=== PATIENT | female | born 1940 | race Caucasian/White ===

== ENCOUNTER → 2016-08-31 | Outpatient (CLI) | payer OTHER, BC ==
[~2016-08-31] MED LIST: ALBU1AER9 INH; ARFO15NE IN; ATV5 PO; CHOL100010 PO; CODCAP PO; CYAN500T PO; IPRASOL4 INH; LCTX PO; LORA-741 PO; LVQ500 PO; MULT-506 PO; NYSS/ PO; OXGN; PLMINSR5 INH; SPRIN/30 INH
[2016-08-31 17:06] LABS: BASO % 0.5 %; BASO ABS # 0.06 K/uL (0-0.2); COMPLETE YES; EOS % 1.3 %; IG% 0.3 %; LYMPH % 10.7 %; LYMPH ABS # 1.23 K/uL (1.2-3.4); MEAN CELL VOLUME 84.6 fL (80-100); MEAN CORPUSCULAR HEMOGLOBIN 27.9 pg (25-34); MEAN PLATELET VOLUME 9.8 fL (7.4-10.4); MONO % 11.2 %; PLATELET COUNT 514 K/uL (130-400); RED BLOOD COUNT 4.73 M/uL (4.2-5.4); WHITE BLOOD COUNT 11.52 K/uL (4.8-10.8)
[2016-08-31 17:18] LABS: ALKALINE PHOSPHATASE 97 U/L (45-117); ALT/SGPT 15 U/L (12-78); BLOOD UREA NITROGEN 10 mg/dl (7-18); BUN/CREATININE RATIO 15.2 (10-20); CARBON DIOXIDE 29 mmol/L (21-32); CHLORIDE 100 mmol/L (98-107); CREATININE 0.63 mg/dl (0.60-1.20); GLUCOSE 94 mg/dl (70-99); POTASSIUM 3.9 mmol/L (3.5-5.1); SODIUM 137 mmol/L (136-145)
[2016-08-31 17:28] LABS: ALB/GLOB RATIO 0.7 (0.9-2); AST/SGOT 14 U/L (15-37)
== END | disposition home or self-care (01) ==
LOC: C.LABBC 14:14
PROVIDERS: ATTEND Internal Medicine
DX: E53.8 Deficiency of other specified B group vitamins (principal); R04.2 Hemoptysis

== ENCOUNTER → 2016-08-31 | Outpatient (CLI) | payer OTHER, BC ==
--- NOTE | 2016-08-31 14:25 | DIAGNOSTIC IMAGING REPORT ---
CHEST 2 VIEWS ROUTINE CLINICAL HISTORY: hemoptysis dyspnea COMPARISON STUDY: 05/05/2016 FINDINGS: Unchanging fibrotic and cystic changes right pulmonary apex. Diffuse parenchymal fibrotic change slightly improved from the prior study read No evidence for new interval or progressive process. IMPRESSION: Unchanging fibrous and cystic changes right apex. Chronic parenchymal fibrotic change somewhat improved from the prior exam. Electronically signed by: Chencho Burt M.D. 08/31/2016 2:24 PM Dictated Date/Time: 08/31/2016 2:23 PM
== END | disposition home or self-care (01) ==
LOC: C.RADBC 13:18
PROVIDERS: ATTEND Nurse Practitioner Family
DX: R04.2 Hemoptysis (principal)

== ENCOUNTER 2017-05-14 09:29 | Inpatient (IN) | payer OTHER, BC ==
[2017-05-14] VITALS (7 sets, daily range): BP systolic 95–107; BP diastolic 61–68; PULSE 62–115; TEMP 36.5–37; O2SAT 92–98; Ht 160 cm; Wt 49.2 kg
[~2017-05-14] VITALS: Ht 160 cm; Wt 49.2 kg
[~2017-05-14 09:29] MED LIST changes: -CODCAP PO; +CODCAP4 PO
[2017-05-14] MEDS ORDERED: SODIUM CHLORIDE 0.9% 1000ML 1,000 ML IV STA (10:11)
[2017-05-14] MEDS ORDERED: METHYLPREDNISOLONE 125 MG VIAL IV STA (10:11)
[2017-05-14] MEDS ORDERED: ALBUT/IPRATROP 3MG/0.5MG NEB 3 ML VIAL INH ONE (10:15)
--- NOTE | 2017-05-14 10:27 | EMERGENCY ROOM VISIT NOTE ---
History Report prepared by Carmen: Randy Larson Under the Supervision of: Dr. Graham Lowe M.D. First contact with patient: 10:08 Chief Complaint: WEAKNESS Stated Complaint: GENERALIZED WEAKNESS Nursing Triage Summary: Patient arrived via EMS from home. Patient reports feeling weak and having generalized pain x 1 week. Pt denies cough, states "I dont' have a cough, I can't bring anything up". Pt coughing occasionally in room, non productive, dry. Pt denies urinary symptoms. Pt states patient is not eating well, hasn' t been eating or drinking well for months. Pt admits to nausea. Pt son states pt had temp of 100 2 days ago and 99.1 this am. No tylenol/advil given today. Pt son states patient wears oxygen 2 L NC at home at all times. After ambulation her pulse ox has been dropping to 83% while wearing 2 L NC. Lungs clear. Speech slow. No edema in lower extremities. Hx COPD, Emphysema per patient. 2 Aneurysms in brain, denies recent headaches. Pt son states no change in aneuryms at last check. History of Present Illness The patient is a 77 year old female who presents to the Emergency Room with complaints of generalized weakness that began 1 week ago. She notes that this has happened once before in the past. She has a past medical history of COPD and emphysema, for which she is chronically on 2L of oxygen. About a week ago, the patient began to notice that she felt extremely weak. She has not been eating substantial solid foods and has not been keeping up with her fluids. The patient's son has been monitoring her at her home over this time. He noticed that she become hypoxic when she is up walking around. He also noticed that her heart rate has been tachycardic as well. She denies any fevers over 100.4 F, chills, chest pain, vomiting, diarrhea, or abnormal urinary symptoms. She has felt mildly nauseated over this time. They called the patient's PCP and was referred to the ER. She took her normal medications this morning, but did not receive a nebulizer treatment like usual. Source of History: patient, family Onset: 1 week ago Position: other (Global) Symptom Intensity: moderate Quality: other (Weakness) Timing: constant Associated Symptoms: + nausea, No fevers, No chills, No chest pain, No diarrhea, No urinary symptoms Note: She becomes mildly hypoxic with exertion. She is also tachycardic. Review of Systems See HPI for pertinent positives and negatives. A total of ten systems were reviewed and were otherwise negative. Past Medical & Surgical Medical Problems: (1) Asthma (2) Collapse of left lung (3) Pneumonia (4) Sepsis Family History Cancer Diabetes mellitus Heart disease Lung disease Social History Smoking Status: Former Smoker Alcohol Use: none Drug Use: none Marital Status: Housing Status: lives with family Occupation Status: retired Current/Historical Medications Scheduled Arformoterol Tartrate (Brovana), 15 MCG IN Q12 Azithromycin (Zithromax), 250 MG PO MWF Budesonide (Pulmicort Respules 0.5MG/2ML), 2 ML INH Q12 Home O2 Therapy (Oxygen), 2 LITERS NA CONTINOUS Ipratropium-Albuterol (Duoneb), 3 ML INH DAILY Lorazepam (Ativan), 0.25-0.5 MG PO BID Tiotropium [place] (Spiriva Handihaler), 1 PUFF INH DAILY Scheduled PRN Albuterol Sulfate (Proair Respiclick), 2 PUFFS INH Q4H PRN for Shortness of Breath Nystatin (Nystatin Suspension), 5 ML PO QID PRN for THRUSH Allergies Coded Allergies: Nitroglycerin (Unverified Allergy, Severe, SLOW HEART RATE, 05/14/17) Penicillins (Verified Allergy, Unknown, HIVES, 05/14/17) Physical Exam Vital Signs Date Time Temp Pulse Resp B/P (MAP) Pulse Ox O2 Delivery O2 Flow Rate FiO2 05/14/17 12:37 102 19 128/74 96 Nasal Cannula 2.0 05/14/17 11:32 93 16 97 Nasal Cannula 2.0 05/14/17 11:01 97 28 100/62 98 Nasal Cannula 2.0 05/14/17 09:37 107 05/14/17 09:30 36.9 108 21 126/73 97 Nasal Cannula 2.0 05/14/17 09:30 97 Nasal Cannula 2.0 Physical Exam GENERAL: Awake, alert, fatigued-appearing, in no distress HENT: Normocephalic, atraumatic. Oropharynx reveals dry, cracked mucous membranes. EYES: Normal conjunctiva. Sclera non-icteric. NECK: Supple. No nuchal rigidity. FROM. No JVD. RESPIRATORY: Diminished bibasilar breath sounds with scant scattered wheezes. CARDIAC: Sinus tachycardic rate, normal rhythm. Extremities warm and well perfused. Pulses equal. ABDOMEN: Soft, non-distended. No tenderness to palpation. No rebound or guarding. No masses. RECTAL: Deferred. MUSCULOSKELETAL: Chest examination reveals no tenderness. The back is symmetrical on inspection without obvious abnormality. There is no CVA tenderness to palpation. No joint edema. LOWER EXTREMITIES: Calves are equal size bilaterally and non-tender. No edema. No discoloration. NEURO: Normal sensorium. No sensory or motor deficits noted. SKIN: No rash or jaundice noted. Medical Decision & Procedures ER Provider Diagnostic Interpretation: Radiology results as stated below per my review and radiologist interpretation: CHEST ONE VIEW PORTABLE CLINICAL HISTORY: Atypical chest pain COMPARISON STUDY: 08/31/2016 FINDINGS: There is persistent pulmonary emphysema. There is a thick-walled right apical bulla/cavity similar to the prior study. Since the prior study the patient has developed a right perihilar airspace opacities, possibly representing a pneumonia. There is a 14 mm left basilar nodule versus summation. There are small bilateral pleural effusions.[ IMPRESSION: 1. Emphysema. Persistent thick walled right apical cavity/bulla containing trace fluid. 2. New right perihilar airspace opacities, likely representing a pneumonia. Clinical and radiographic follow-up is recommended 3. Small pleural effusions 4. 14 mm left basilar nodule versus summation Electronically signed by: Kem Hendrickson M.D. 05/14/2017 10:38 AM Dictated Date/Time: 05/14/2017 10:35 AM Laboratory Results 05/14/17 09:55 Red Blood Count 4.32, Mean Corpuscular Volume 81.3, Mean Corpuscular Hemoglobin 27.3, Mean Corpuscular Hemoglobin Concent 33.6, Mean Platelet Volume 9.3, Neutrophils (%) (Auto) 83.2, Lymphocytes (%) (Auto) 2.3, Monocytes (%) (Auto) 14.1, Eosinophils (%) (Auto) 0.0, Basophils (%) (Auto) 0.2, Neutrophils # (Auto ) 13.76, Lymphocytes # (Auto) 0.38, Monocytes # (Auto) 2.34, Eosinophils # (Auto ) 0.00, Basophils # (Auto) 0.03 Test 05/14/17 09:55 05/14/17 10:36 White Blood Count 16.55 K/uL (4.8-10.8) Red Blood Count 4.32 M/uL (4.2-5.4) Hemoglobin 11.8 g/dL (12.0-16.0) Hematocrit 35.1 % (37-47) Mean Corpuscular Volume 81.3 fL (80-100) Mean Corpuscular Hemoglobin 27.3 pg (25-34) Mean Corpuscular Hemoglobin Concent 33.6 g/dl (32-36) Platelet Count 540 K/uL (130-400) Mean Platelet Volume 9.3 fL (7.4-10.4) Neutrophils (%) (Auto) 83.2 % Lymphocytes (%) (Auto) 2.3 % Monocytes (%) (Auto) 14.1 % Eosinophils (%) (Auto) 0.0 % Basophils (%) (Auto) 0.2 % Neutrophils # (Auto) 13.76 K/uL (1.4-6.5) Lymphocytes # (Auto) 0.38 K/uL (1.2-3.4) Monocytes # (Auto) 2.34 K/uL (0.11-0.59) Eosinophils # (Auto) 0.00 K/uL (0-0.5) Basophils # (Auto) 0.03 K/uL (0-0.2) RDW Standard Deviation 44.7 fL (36.4-46.3) RDW Coefficient of Variation 15.0 % (11.5-14.5) Immature Granulocyte % (Auto) 0.2 % Immature Granulocyte # (Auto) 0.04 K/uL (0.00-0.02) Total Bilirubin 0.4 mg/dl (0.2-1) Direct Bilirubin 0.1 mg/dl (0-0.2) Aspartate Amino Transf (AST/SGOT) 17 U/L (15-37) Alanine Aminotransferase (ALT/SGPT) 13 U/L (12-78) Alkaline Phosphatase 88 U/L (45-117) Pro-B-Type Natriuretic Peptide 1257 pg/ml (0-1800) Total Protein 7.1 gm/dl (6.4-8.2) Albumin 2.5 gm/dl (3.4-5.0) Lipase 85 U/L (73-393) Venous Blood pH 7.44 (7.36-7.41) Venous Blood Partial Pressure CO2 43 mmHg (38.0-50.0) Venous Blood Partial Pressure O2 38 mmHg Venous Blood HCO3 28 mmol/L Venous Blood Oxygen Saturation 74.6 % Venous Blood Base Excess 3.5 mEq/L Laboratory results reviewed by me Medications Administered Medications (Trade) Dose Ordered Sig/Giovanni Route Start Time Stop Time Status Last Admin Dose Admin Albuterol/ Ipratropium (Duoneb) 12 ml ONE ONCE INH 05/14/17 10:15 05/14/17 10:17 DC 05/14/17 11:31 12 ML Sodium Chloride 1,000 ml @ 999 mls/hr Q1H1M STAT IV 05/14/17 10:11 05/14/17 11:11 DC 05/14/17 10:59 999 MLS/HR Methylprednisolone Sodium Succinate (Solu-Medrol IV) 125 mg NOW STAT IV 05/14/17 10:11 05/14/17 10:17 DC 05/14/17 10:58 125 MG Levofloxacin (Levaquin / D5W) 500 mg NOW ONCE IV 05/14/17 12:00 05/14/17 12:01 DC 05/14/17 13:02 500 MG Sodium Chloride 1,000 ml @ 100 mls/hr Q10H IV 05/14/17 12:35 06/13/17 12:34 05/14/17 14:01 100 MLS/HR ECG Indication: weakness Rhythm: sinus rhythm Findings: no acute ischemic change, other (premature supraventricular complexes , normal axis) ED Course 1008: The patient was evaluated in room B11. A complete history and physical exam was performed. 1011: Ordered Solu-Medrol IV 125 mg IV, Sodium Chloride 1000 ml @ 999 mls/hr IV 1015: Ordered DuoNeb 12 ml INH 1200: Ordered Levofloxacin 500 mg IV 1207: Upon reexamination, the patient was resting. I discussed the test results and treatment plan with her. I discussed the case with Dr. Dempsey of [facility]. The patient will be evaluated for further management. Medical Decision I reviewed the patient's past medical history, medications, and the nursing notes as described above. Differential diagnosis includes but is not limited to: pneumonia, bronchitis, UTI, dehydration, electrolyte abnormalities, congestive heart failure, and COPD exacerbation. The patient is a 77-year-old woman who presents emergency department with generalized fatigue, cough and congestion for the past week per history of present illness. On arrival the patient is uncomfortable appearing but in no acute distress, AFVSS. Abdomen notable for hyponatremia to 128 as well as chest x-ray with right perihilar airspace opacities c/w pna. WBC 16 consistent with infection. Patient was given Levaquin for CAP with atypical coverage. Case was d/w BERNICE Dempsey hospitalist, who will admit the patient for further management. Medication Reconcilliation Current Medication List: was personally reviewed by me Blood Pressure Screening Patient's blood pressure: Normal blood pressure Blood pressure disposition: Did not require urgent referral Consults Time Called: 1200 Consulting Physician: Dr. Ke QUEEN Returned Call: 1207 I discussed the patient with them - they will evaluate the patient for further treatment. Impression Primary Impression: Pneumonia Additional Impressions: Hyponatremia Weakness Dehydration Scribe Attestation The scribe's documentation has been prepared under my direction and personally reviewed by me in its entirety. I confirm that the note above accurately reflects all work, treatment, procedures, and medical decision making performed by me. Departure Information Dispostion Being Evaluated By Hospitalist Referrals Oscar Lanza M.D. (PCP) Patient Instructions My [facility] Problem Qualifiers
[2017-05-14] MEDS ORDERED: AZIT250T PO (10:33)
[2017-05-14] MEDS ORDERED: ALBU18002 INH (10:33)
--- NOTE | 2017-05-14 10:39 | DIAGNOSTIC IMAGING REPORT ---
CHEST ONE VIEW PORTABLE CLINICAL HISTORY: Atypical chest pain COMPARISON STUDY: 08/31/2016 FINDINGS: There is persistent pulmonary emphysema. There is a thick-walled right apical bulla/cavity similar to the prior study. Since the prior study the patient has developed a right perihilar airspace opacities, possibly representing a pneumonia. There is a 14 mm left basilar nodule versus summation. There are small bilateral pleural effusions.[ IMPRESSION: 1. Emphysema. Persistent thick walled right apical cavity/bulla containing trace fluid. 2. New right perihilar airspace opacities, likely representing a pneumonia. Clinical and radiographic follow-up is recommended 3. Small pleural effusions 4. 14 mm left basilar nodule versus summation Electronically signed by: Kem Hendrickson M.D. 05/14/2017 10:38 AM Dictated Date/Time: 05/14/2017 10:35 AM
[2017-05-14 10:46] LABS: BASO % 0.2 %; BASO ABS # 0.03 K/uL (0-0.2); COMPLETE YES; HEMATOCRIT 35.1 % (37-47); IG% 0.2 %; LYMPH % 2.3 %; LYMPH ABS # 0.38 K/uL (1.2-3.4); MEAN CELL VOLUME 81.3 fL (80-100); MEAN CORPUSCULAR HEMOGLOBIN 27.3 pg (25-34); MEAN CORPUSCULAR HGB CONC 33.6 g/dl (32-36); MEAN PLATELET VOLUME 9.3 fL (7.4-10.4); MONO % 14.1 %; NEUT % 83.2 %; PLATELET COUNT 540 K/uL (130-400); RED BLOOD COUNT 4.32 M/uL (4.2-5.4); WHITE BLOOD COUNT 16.55 K/uL (4.8-10.8)
[2017-05-14 10:52] LABS: VEN BLD GAS O2 SATURATION 74.6 %; VEN BLOOD GAS BASE EXCESS 3.5 mEq/L
[2017-05-14 10:54] LABS: ALT/SGPT 13 U/L (12-78); BLOOD UREA NITROGEN 10 mg/dl (7-18); BUN/CREATININE RATIO 19.5 (10-20); CALCIUM 8.7 mg/dl (8.5-10.1); CARBON DIOXIDE 26 mmol/L (21-32); CHLORIDE 93 mmol/L (98-107); CREATININE 0.49 mg/dl (0.60-1.20); GLUCOSE 103 mg/dl (70-99); POTASSIUM 4.1 mmol/L (3.5-5.1); SODIUM 128 mmol/L (136-145)
[2017-05-14 10:59] LABS: ALKALINE PHOSPHATASE 88 U/L (45-117); AST/SGOT 17 U/L (15-37)
[2017-05-14] MEDS ORDERED: LEVAQUIN 500MG / 100ML D5W IV ONE (12:00)
[2017-05-14] MEDS ORDERED: ACETAMINOPHEN 325 MG TAB PO PRN (12:45)
--- NOTE | 2017-05-14 13:33 | History and Physical ---
History & Physical Date & Time of Service: May 14, 2017 at 13:12 Chief Complaint: Generalized Weakness Primary Care Physician: Oscar Lanza M.D. History of Present Illness Source: patient, family (son), hospital records 77 yo female with history of COPD, chronic hypoxia on 2L continuously, presented to the ED today with a one week history of weakness, poor appetite, increased lethargy. Most of the history obtained from son at the bedside who takes care of her at home. He said that she has had a low grade temperature, no fever that he has seen. Sleeping a lot, night sweats. Won't eat or drink much even though he constantly tries to push intake. She admits to some nausea , no vomiting. No real cough or dyspnea. Son has put a pulse oximeter on when walking and saturations drop to 83% on the 2L. In the ED she was tachycardic, WBC 16k, blood pressure preserved. Feels jittery after Duoneb treatment. Past Medical/Surgical History Medical Problems: Asthma Collapse of right lung COPD Cerebral aneurysm nonruptured Anxiety H/o intermittent hemoptysis Eczema Family History Cancer Diabetes mellitus Heart disease Lung disease Social History Smoking Status: Former Smoker Drug Use: none Marital Status: Housing status: lives with family Occupational Status: retired Immunizations History of Influenza Vaccine: Yes Influenza Vaccine Date: Mar 04, 2010 History of Tetanus Vaccine?: Yes Tetanus Immunization Date: May 25, 2008 History of Pneumococcal: Yes Pneumococcal Date: May 25, 2005 History of Hepatitis B Vaccine: No Multi-Drug Resistant Organisms History of MDRO: No Allergies Coded Allergies: Nitroglycerin (Unverified Allergy, Severe, SLOW HEART RATE, 05/14/17) Penicillins (Verified Allergy, Unknown, HIVES, 05/14/17) Home Medications Scheduled Arformoterol Tartrate (Brovana), 15 MCG IN Q12 Azithromycin (Zithromax), 250 MG PO MWF Budesonide (Pulmicort Respules 0.5MG/2ML), 2 ML INH Q12 Home O2 Therapy (Oxygen), 2 LITERS NA CONTINOUS Ipratropium-Albuterol (Duoneb), 3 ML INH DAILY Lorazepam (Ativan), 0.25-0.5 MG PO BID Tiotropium [place] (Spiriva Handihaler), 1 PUFF INH DAILY Scheduled PRN Albuterol Sulfate (Proair Respiclick), 2 PUFFS INH Q4H PRN for Shortness of Breath Nystatin (Nystatin Suspension), 5 ML PO QID PRN for THRUSH Review of Systems Constitutional: + sweats, + weakness, + fatigue, No fever, No chills, No weight loss Eyes: No worsening of vision, No eye pain, No redness, No discharge, No diplopia, No problem reported ENT: No hearing loss, No unusual epistaxis, No nasal symptoms, No sore throat, No tinnitus, No dental problems, No trouble swallowing, No problem reported Respiratory: + dyspnea on exertion, No cough, No sputum, No wheezing, No shortness of breath, No dyspnea at rest, No hemoptysis, No problem reported Cardiovascular: No chest pain, No orthopnea, No PND, No edema, No claudication , No palpitations, No problem reported Abdomen: + nausea, + problem reported (poor appetite), No pain, No vomiting, No diarrhea, No constipation, No GI bleeding Musculoskeletal: No joint pain, No muscle pain, No swelling, No calf pain, No problem reported Genitourinary - Female: No dysuria, No urinary frequency, No urinary urgency, No urinary incontinence, No urinary retention, No hematuria Psychiatric: + anxiety, No depression symptoms, No anhedonism, No insomnia, No substance abuse, No problem reported Endocrine: No fatigue, No excessive thirst, No excessive urination, No problem reported Hematologic / Lymphatic: No abnormal bleeding/bruising, No clotting problems, No swollen lymph nodes, No night sweats, No problem reported Integumentary: No rash, No itch, No new/changing skin lesions, No color change , No bleeding, No problem reported Allergic / Immunologic: No environmental allergies, No seasonal allergies, No pet sensitivities, No food allergies, No hives, No frequent infections, No poor healing, No prolonged convalescence, No problem reported Physical Exam Vital Signs Date Time Temp Pulse Resp B/P (MAP) Pulse Ox O2 Delivery O2 Flow Rate FiO2 05/14/17 13:06 119 26 103/58 94 Nasal Cannula 2.0 05/14/17 13:04 120 05/14/17 12:37 102 19 128/74 96 Nasal Cannula 2.0 05/14/17 11:32 93 16 97 Nasal Cannula 2.0 05/14/17 11:01 97 28 100/62 98 Room Air 2.0 05/14/17 09:37 107 05/14/17 09:30 36.9 108 21 126/73 97 Nasal Cannula 2.0 05/14/17 09:30 97 Nasal Cannula 2.0 General Appearance: no apparent distress, + thin Head: normocephalic, atraumatic Eyes: normal inspection, EOMI, sclerae normal ENT: hearing grossly normal, pharynx normal, + pertinent finding (mucous membranes very dry) Neck: supple, no adenopathy, no JVD, trachea midline Respiratory/Chest: chest non-tender, lungs clear, normal breath sounds, no respiratory distress, no accessory muscle use Cardiovascular: no edema, no gallop, no JVD, no murmur, normal peripheral pulses, + tachycardia Abdomen/GI: normal bowel sounds, non tender, soft, no organomegaly Back: normal inspection, no CVA tenderness, no muscle spasm, normal range of motion Extremities/Musculoskelatal: normal inspection, no calf tenderness, normal capillary refill, no pedal edema, normal range of motion, pelvis stable Neurologic/Psych: director of broadcast II-XII nml as tested, no motor/sensory deficits, alert, normal mood/affect, oriented x 3 Skin: normal color, warm/dry, no rash, + pertinent finding (increased turgor) Lymphatic: no adenopathy Diagnostics Laboratory Results Results Past 24 Hours Test 05/14/17 09:55 05/14/17 10:36 Range/Units White Blood Count 16.55 4.8-10.8 K/uL Red Blood Count 4.32 4.2-5.4 M/uL Hemoglobin 11.8 12.0-16.0 g/dL Hematocrit 35.1 37-47 % Mean Corpuscular Volume 81.3 80-100 fL Mean Corpuscular Hemoglobin 27.3 25-34 pg Mean Corpuscular Hemoglobin Concent 33.6 32-36 g/dl Platelet Count 540 130-400 K/uL Mean Platelet Volume 9.3 7.4-10.4 fL Neutrophils (%) (Auto) 83.2 % Lymphocytes (%) (Auto) 2.3 % Monocytes (%) (Auto) 14.1 % Eosinophils (%) (Auto) 0.0 % Basophils (%) (Auto) 0.2 % Neutrophils # (Auto) 13.76 1.4-6.5 K/uL Lymphocytes # (Auto) 0.38 1.2-3.4 K/uL Monocytes # (Auto) 2.34 0.11-0.59 K/uL Eosinophils # (Auto) 0.00 0-0.5 K/uL Basophils # (Auto) 0.03 0-0.2 K/uL RDW Standard Deviation 44.7 36.4-46.3 fL RDW Coefficient of Variation 15.0 11.5-14.5 % Immature Granulocyte % (Auto) 0.2 % Immature Granulocyte # (Auto) 0.04 0.00-0.02 K/uL Sodium Level 128 136-145 mmol/L Potassium Level 4.1 3.5-5.1 mmol/L Chloride Level 93 98-107 mmol/L Carbon Dioxide Level 26 21-32 mmol/L Anion Gap 9.0 3-11 mmol/L Blood Urea Nitrogen 10 7-18 mg/dl Creatinine 0.49 0.60-1.20 mg/dl Est Creatinine Clear Calc Drug Dose 77.9 ml/min Estimated GFR () 109.7 Estimated GFR (Non- 94.6 BUN/Creatinine Ratio 19.5 10-20 Random Glucose 103 70-99 mg/dl Calcium Level 8.7 8.5-10.1 mg/dl Total Bilirubin 0.4 0.2-1 mg/dl Direct Bilirubin 0.1 0-0.2 mg/dl Aspartate Amino Transf (AST/SGOT) 17 15-37 U/L Alanine Aminotransferase (ALT/SGPT) 13 12-78 U/L Alkaline Phosphatase 88 45-117 U/L Troponin I < 0.015 0-0.045 ng/ml Pro-B-Type Natriuretic Peptide 1257 0-1800 pg/ml Total Protein 7.1 6.4-8.2 gm/dl Albumin 2.5 3.4-5.0 gm/dl Lipase 85 73-393 U/L Venous Blood pH 7.44 7.36-7.41 Venous Blood Partial Pressure CO2 43 38.0-50.0 mmHg Venous Blood Partial Pressure O2 38 mmHg Venous Blood HCO3 28 mmol/L Venous Blood Oxygen Saturation 74.6 % Venous Blood Base Excess 3.5 mEq/L Diagnostic Radiology CXR: chronic right sided bullae and scarring, however, increased right hilar opacities suggesting pneumonia EKG sinus tachycardia, no signs of ischemia Impression Assessment and Plan 77 yo female with history of COPD/asthma and chronic hypoxia, presents with signs of sepsis due to right sided pneumonia - Sepsis due to pneumonia: no signs of organ failure Levaquin 750mg IV daily, NSS at 100cc/hr, bolus if blood pressure drops but preserved at this time repeat CBC tomorrow blood cultures x 2, urine culture sent - Hyponatremia: most likely from poor solute intake and dehydration NSS at 100cc/hr, check BMP later today - COPD/Asthma: continue home inhalers no wheezing or distress on exam so hold on steroids Duoneb QID and as needed - Anxiety: Ativan 0.5mg BID as needed DVT prophylaxis: Lovenox Level 1: discussed with patient and son who is POA Level of Care Telemetry Resuscitation Status FULL RESUSCITATION VTE Prophylaxis VTE Risk Assessment Done? Y/N: Yes Risk Level: Moderate Given or contraindicated: Enoxaparin (Lovenox)SQ Additional Copies To Oscar Lanza M.D.
[2017-05-14] MEDS: SODIUM CHLORIDE 0.9% 1000ML 1,000 ML IV SCH ×2 (14:01→22:32)
[2017-05-14] MEDS: ALBUT/IPRATROP 3MG/0.5MG NEB 3 ML VIAL INH SCH ×2 (15:47→19:06)
[2017-05-14 16:00] LABS: INR 1.2 (0.9-1.1)
[2017-05-14] MEDS: LORAZEPAM 0.5 MG TAB PO PRN (16:30)
[2017-05-14] MEDS: ENOXAPARIN 40 MG/0.4 ML SYR SC SCH (17:52)
[2017-05-14 18:22] LABS: BLOOD UREA NITROGEN 9 mg/dl (7-18); BUN/CREATININE RATIO 13.7 (10-20); CARBON DIOXIDE 24 mmol/L (21-32); CHLORIDE 97 mmol/L (98-107); CREATININE 0.66 mg/dl (0.60-1.20); GLUCOSE 160 mg/dl (70-99); POTASSIUM 3.6 mmol/L (3.5-5.1); SODIUM 129 mmol/L (136-145)
[2017-05-14] MEDS ORDERED: NURSING DECISION MEDICATION ORDER SCH (20:30)
[2017-05-14] MEDS ORDERED: COUGH DROP (SUGAR FREE) LOZ 24 LOZ/1 BOX PO PRN (20:30)
[2017-05-14 22:29] LABS: URINE APPEARANCE CLEAR (CLEAR); URINE BILIRUBIN NEG (NEG); URINE COLOR YELLOW; URINE NITRITE NEG (NEG); URINE PH 6.5 (4.5-7.5); URINE SPECIFIC GRAVITY 1.013 (1.000-1.030); UROBILINOGEN NEG (NEG)
[2017-05-14 22:32] LABS: MANUAL MICROSCOPIC REQUIRED? NO; REVIEW REQ? NO
[2017-05-15] VITALS (10 sets, daily range): BP systolic 90–114; BP diastolic 50–75; PULSE 59–93; TEMP 36.4–36.8; O2SAT 93–97
[2017-05-15] MEDS: ALBUT/IPRATROP 3MG/0.5MG NEB 3 ML VIAL INH SCH ×3 (05:24→11:38)
[2017-05-15 07:15] LABS: BUN/CREATININE RATIO 25.2 (10-20); CALCIUM 8.7 mg/dl (8.5-10.1); CREATININE 0.39 mg/dl (0.60-1.20); MAGNESIUM 2.3 mg/dl (1.8-2.4); POTASSIUM 3.8 mmol/L (3.5-5.1)
[2017-05-15 07:53] LABS: COMPLETE YES; HEMATOCRIT 32.1 % (37-47); IG% 0.3 %; LYMPH % 3.6 %; LYMPH ABS # 0.21 K/uL (1.2-3.4); MEAN CELL VOLUME 81.1 fL (80-100); MEAN CORPUSCULAR HEMOGLOBIN 26.5 pg (25-34); MEAN CORPUSCULAR HGB CONC 32.7 g/dl (32-36); MONO % 4.6 %; NEUT % 91.5 %; PLATELET COUNT 452 K/uL (130-400); RED BLOOD COUNT 3.96 M/uL (4.2-5.4); WHITE BLOOD COUNT 5.88 K/uL (4.8-10.8)
--- NOTE | 2017-05-15 08:37 | Clinical Documentation Query ---
TANNER Becker : CLINICAL DOCUMENTATION QUERY Patient is a 77 year old female admitted for sepsis secondary to pneumonia. Documentation includes "chronic hypoxia", noting she utilizes 2L continuously. As appropriate, consider documentation as suggested below in order to capture the severity of illness and risk of mortality associated with this important clinical diagnosis. Thank you. In your clinical opinion is this patient being managed for: ( x ) Chronic hypoxic respiratory failure ( ) Not Agree ( ) Other explanation of clinical findings (Please Explain) ( ) Unable to determine (Please Define) ( ) Need to Discuss The medical record reflects the following clinical findings, treatment, and risk factors. Clinical Indicators: Continuous use of supplemental O2 Treatment: Ongoing provision of supplemental O2 Risk Factors: COPD Please clarify and document your clinical opinion in the progress notes and discharge summary. Terms such as "probable", "suspected", "likely", "questionable", "possible", or "still to be ruled out" are acceptable. IF IN AGREEMENT, YOU MUST DOCUMENT ABOVE DIAGNOSTIC STATEMENT IN DAILY PROGRESS NOTES AND DISCHARGE SUMMARY. This document is not part of the patient's record. Thank You, Puma Estrada, RN [phone]
[2017-05-15] MEDS: TIOTROPIUM BROMIDE 5 PUFF/90 MCG INH INH SCH (09:10)
[2017-05-15] MEDS: SODIUM CHLORIDE 0.9% 1000ML 1,000 ML IV SCH ×2 (09:11→17:53)
[2017-05-15] MEDS ORDERED: LEVOFLOXACIN / D5W 750 MG in PREMIXED IN D5W 150 ML IV SCH (10:00)
[2017-05-15 12:05] LABS: INFLUENZA A PCR Neg for Influ A (NEG); INFLUENZA B PCR Neg for Influ B (NEG)
[2017-05-15] MEDS ORDERED: SODIUM CHLORIDE 0.9% 500ML 500 ML IV ONE (12:30)
--- NOTE | 2017-05-15 12:50 | Clinical Documentation Query ---
SANTA Medel : CLINICAL DOCUMENTATION QUERY Patient is a 77 year old female admitted for sepsis secondary to pneumonia. Documentation includes "chronic hypoxia", noting she utilizes 2L continuously. As appropriate, consider documentation as suggested below in order to capture the severity of illness and risk of mortality associated with this important clinical diagnosis. Thank you. In your clinical opinion is this patient being managed for: (x ) Chronic hypoxic respiratory failure ( ) Not Agree ( ) Other explanation of clinical findings (Please Explain) ( ) Unable to determine (Please Define) ( ) Need to Discuss The medical record reflects the following clinical findings, treatment, and risk factors. Clinical Indicators: Continuous use of supplemental O2 Treatment: Ongoing provision of supplemental O2 Risk Factors: COPD Please clarify and document your clinical opinion in the progress notes and discharge summary. Terms such as "probable", "suspected", "likely", "questionable", "possible", or "still to be ruled out" are acceptable. IF IN AGREEMENT, YOU MUST DOCUMENT ABOVE DIAGNOSTIC STATEMENT IN DAILY PROGRESS NOTES AND DISCHARGE SUMMARY. This document is not part of the patient's record. Thank You, Puma Estrada, RN [phone]
--- NOTE | 2017-05-15 13:34 | Hospitalist Progress Note ---
Hospitalist Progress Note Date of Service May 15, 2017. (Daksha Pino PA-C) Subjective Pt evaluation today including: conversation w/ patient, physical exam, chart review, lab review, review of studies, review of inpatient medication list Patient seen and evaluated. Reporting that she may feel slightly better today but not much. Still feeling generally weak. Reporting she had a strong cough overnight that limited her rest. States she occ. gets sputum up. Appears a little anxious and intermittently tearful. When asking her about this she states she is concerned that she is being a bother. Reassured her that she is not and that if she needs something we do need her to ask for help especially feeling weak. She is on chronic 2 L NC but states that at home at rest she is 97% on average but does drop when she walks. States she does have a sore throat but only when coughing Constitutional: No fever, No chills, No weakness, No fatigue Respiratory: + cough, + sputum, No wheezing, No shortness of breath Cardiovascular: No chest pain Abdomen: No pain, No nausea, No vomiting, No diarrhea, No constipation Female : No dysuria Skin: No rash (Daksha Pino, ALMITA-C) Medications Current Inpatient Medications Medications (Trade) Dose Ordered Sig/Giovanni Route Start Time Stop Time Status Last Admin Dose Admin Enoxaparin Sodium (Lovenox Inj) 40 mg Q24H SC 05/14/17 18:00 06/13/17 17:59 05/14/17 17:52 40 MG Sodium Chloride 1,000 ml @ 100 mls/hr Q10H IV 05/14/17 12:35 06/13/17 12:34 05/15/17 09:11 100 MLS/HR Acetaminophen (Tylenol Tab) 650 mg Q4H PRN PO 05/14/17 12:45 06/13/17 12:44 Ondansetron HCl (Zofran Inj) 4 mg Q6H PRN IV 05/14/17 12:45 06/13/17 12:44 Levofloxacin 750 mg/Prmx 150 ml @ 100 mls/hr Q24H IV 05/15/17 10:00 05/21/17 09:59 05/15/17 09:10 100 MLS/HR Lorazepam (Ativan Tab) 0.5 mg BID PRN PO 05/14/17 13:45 06/13/17 13:44 05/14/17 16:30 0.5 MG Tiotropium [place] (Spiriva Handihaler Inhaler) 1 puff DAILY INH 05/15/17 09:00 06/14/17 08:59 05/15/17 09:10 1 PUFF Menthol (Nice Lanette) 1 lanette PRN PRN PO 05/14/17 20:30 06/13/17 20:29 Arformoterol Tartrate (Brovana 15MCG/ 2ML Neb Soln) 15 mcg BIDR INH 05/15/17 20:00 06/14/17 19:59 Budesonide (Pulmicort Respules 0.5MG/ 2ML Neb Soln) 0.5 mg BIDR INH 05/15/17 20:00 06/14/17 19:59 Albuterol Sulfate (Ventolin 0.083% 2.5MG/3ML Neb) 2.5 mg Q4 PRN INH 05/15/17 12:00 06/14/17 11:59 Sodium Chloride 500 ml @ 999 mls/hr Q31M ONCE IV 05/15/17 12:30 05/15/17 13:00 05/15/17 12:35 999 MLS/HR (Daksha Pino, RAJESH) Objective Vital Signs Date Time Temp Pulse Resp B/P (MAP) Pulse Ox O2 Delivery O2 Flow Rate FiO2 05/15/17 12:00 Nasal Cannula 2.0 05/15/17 11:00 36.7 66 18 90/58 (69) 95 05/15/17 08:00 36.8 59 16 91/50 (64) 96 05/15/17 08:00 Nasal Cannula 2.0 05/15/17 07:37 36.7 66 18 90/58 (69) 95 05/15/17 07:25 67 16 97 Nasal Cannula 2.0 05/15/17 05:24 79 16 97 Nasal Cannula 2.0 05/15/17 04:00 Nasal Cannula 2.0 05/15/17 03:47 36.4 76 17 93/60 (71) 97 Nasal Cannula 2.0 05/14/17 23:40 36.6 82 21 95/61 (72) 96 Nasal Cannula 2.0 05/14/17 23:33 Nasal Cannula 2.0 05/14/17 19:45 Nasal Cannula 2.0 05/14/17 19:10 62 16 92 Nasal Cannula 2.0 05/14/17 18:43 36.5 96 18 99/67 (78) 95 Nasal Cannula 2.0 05/14/17 16:00 Nasal Cannula 2.0 05/14/17 15:49 99 15 98 Nasal Cannula 2.0 05/14/17 14:00 37.0 112 20 107/68 94 Nasal Cannula 2.0 05/14/17 13:49 37.0 115 18 107/68 (81) 94 Nasal Cannula 2.0 05/14/17 13:35 114 28 98/58 95 05/14/17 13:06 119 26 103/58 94 Nasal Cannula 2.0 05/14/17 13:04 120 (Daksha Pino, ALMITA-C) Physical Exam General Appearance: WD/WN, no apparent distress Eyes: sclerae normal ENT: hearing grossly normal, + pertinent finding (oral mucosa dry) Neck: supple, no JVD, trachea midline Respiratory/Chest: lungs clear, no respiratory distress, no accessory muscle use, + decreased breath sounds Cardiovascular: regular rate, rhythm, no gallop, no murmur Abdomen: normal bowel sounds, non tender, soft Extremities: no pedal edema, no calf tenderness Neurologic/Psychiatric: alert, oriented x 3 Skin: normal color, warm/dry (Dakhsa Pino, PA-C) Laboratory Results Last 24 Hours Test 05/14/17 15:21 05/14/17 17:51 05/15/17 06:17 05/15/17 10:40 Prothrombin Time 13.0 SECONDS Prothromb Time International Ratio 1.2 Sodium Level 129 mmol/L 134 mmol/L Potassium Level 3.6 mmol/L 3.8 mmol/L Chloride Level 97 mmol/L 103 mmol/L Carbon Dioxide Level 24 mmol/L 25 mmol/L Anion Gap 8.0 mmol/L 6.0 mmol/L Blood Urea Nitrogen 9 mg/dl 10 mg/dl Creatinine 0.66 mg/dl 0.39 mg/dl Est Creatinine Clear Calc Drug Dose 56.1 ml/min 95.3 ml/min Estimated GFR () 99.5 118.2 Estimated GFR (Non- 85.8 102.0 BUN/Creatinine Ratio 13.7 25.2 Random Glucose 160 mg/dl 112 mg/dl Calcium Level 8.0 mg/dl 8.7 mg/dl Troponin I < 0.015 ng/ml White Blood Count 5.88 K/uL Red Blood Count 3.96 M/uL Hemoglobin 10.5 g/dL Hematocrit 32.1 % Mean Corpuscular Volume 81.1 fL Mean Corpuscular Hemoglobin 26.5 pg Mean Corpuscular Hemoglobin Concent 32.7 g/dl Platelet Count 452 K/uL Mean Platelet Volume 9.0 fL Neutrophils (%) (Auto) 91.5 % Lymphocytes (%) (Auto) 3.6 % Monocytes (%) (Auto) 4.6 % Eosinophils (%) (Auto) 0.0 % Basophils (%) (Auto) 0.0 % Neutrophils # (Auto) 5.38 K/uL Lymphocytes # (Auto) 0.21 K/uL Monocytes # (Auto) 0.27 K/uL Eosinophils # (Auto) 0.00 K/uL Basophils # (Auto) 0.00 K/uL RDW Standard Deviation 45.4 fL RDW Coefficient of Variation 15.2 % Immature Granulocyte % (Auto) 0.3 % Immature Granulocyte # (Auto) 0.02 K/uL Magnesium Level 2.3 mg/dl Influenza Type A (RT-PCR) Neg for Influ A Influenza Type B (RT-PCR) Neg for Influ B (Daksha Pino, PAAnneC) Assessment and Plan 77 yo female with history of COPD/asthma and chronic hypoxia, presents with signs of sepsis due to right sided pneumonia Sepsis POA due to Pneumonia: - Levaquin 750 mg IV daily - NSS 100 mL/hr and did give 500 cc bolus due to hypotension - [place] anxious on Duonebs - Brovana and Pulmicort nebs Hyponatremia: RESOLVED - Likely from dehydration and still somewhat dry on examination Chronic Hypoxic Respiratory Failure 2/2 COPD/Asthma: Continuous 2 L - During examination patient was off O2 and satting around 94% states that normally at rest she is ok but drops with ambulation; was anxious about her O2 and did place this back on - Continue to hold on steroids at this time and continue nebs Anxiety: - Appears anxious and tearful, afraid that she is being a burden and gets anxious about this DVT Prophylaxis: Lovenox Code Status: FULL RESUSCITATION Disposition: - Continue Abx and hydration; PT/OT evaluations Continued [facility] stay due to: multiple IV medications needed (Daksha Pino, PA-C) i personally examined pt and verified all morales points w A Alvarez PAC feeling better breathing better but hasn't moved around mch still worried about SCALES and still quite weak also very anxious >30mins face to face >50% counselling/educating/answering questions to the best of my ability and to her/family's satisfaction vitals noted nad breathing unlabored no pallor or icterus CAP w severe O2 dependant COPD - improving, stable for med surg, continue levaquin, home once ongoing improvement anxiety - low dose ativan OK but d/w her risks of higher or more repeated dosing , continued reassurance, follow closel otherwise as above (Naseem Arredondo, D.Ned.)
[2017-05-15] MEDS: ALBUTEROL 0.083% NEBU SOLN 3 ML VIAL INH PRN (15:55)
[2017-05-15] MEDS: ENOXAPARIN 40 MG/0.4 ML SYR SC SCH (17:53)
[2017-05-15] MEDS: ARFORMOTEROL TART 15MCG/2ML VIAL INH SCH (18:30)
[2017-05-15] MEDS: BUDESONIDE 0.5 MG/2 ML VIAL (PULMICORT) INH SCH (18:30)
[2017-05-15] MEDS: LORAZEPAM 0.5 MG TAB PO PRN (21:55)
[2017-05-16] VITALS (13 sets, daily range): BP systolic 83–121; BP diastolic 61–79; PULSE 73–130; TEMP 35.3–36.7; O2SAT 92–99
[2017-05-16] MEDS: SODIUM CHLORIDE 0.9% 1000ML 1,000 ML IV SCH ×2 (03:54→13:42)
[2017-05-16] MEDS: BUDESONIDE 0.5 MG/2 ML VIAL (PULMICORT) INH SCH ×2 (07:13→19:18)
[2017-05-16] MEDS: ARFORMOTEROL TART 15MCG/2ML VIAL INH SCH ×2 (07:14→19:17)
[2017-05-16] MEDS: TIOTROPIUM BROMIDE 5 PUFF/90 MCG INH INH SCH (10:40)
[2017-05-16] MEDS: LORAZEPAM 0.5 MG TAB PO PRN (10:45)
[2017-05-16] MEDS ORDERED: LEVOFLOXACIN 750 MG TAB PO SCH (11:00)
[2017-05-16] MEDS ORDERED: ESCITALOPRAM OXALATE 10 MG TAB PO ONE (14:54)
[2017-05-16] MEDS: ALBUTEROL 0.083% NEBU SOLN 3 ML VIAL INH PRN (14:57)
--- NOTE | 2017-05-16 15:22 | Hospitalist Progress Note ---
Hospitalist Progress Note Date of Service May 16, 2017. (Daksha Pino, HAYDEEC) Subjective Pt evaluation today including: conversation w/ patient, conversation w/ family , physical exam, chart review, review of studies, review of inpatient medication list Patient seen and evaluated. Updated patient and son on current plan. Reporting that her breathing feels at baseline but just very weak. Encouraged her to participate with PT/OT even if it is just for a little bit of time to prevent further deconditioning. Also complains of feelings of "things crawling through me" and son states she has had a lot of issues with and she confirms she is anxious. Discussed starting a low-dose antidepressant however effects will take time to help. She is very focused on her breathing treatment and did explain that they are scheduled in a window of time and she did understand. Son tried to reiterate to her as well. Constitutional: No fever, No chills Respiratory: + cough, + dyspnea on exertion Cardiovascular: No chest pain Abdomen: No pain, No nausea, No vomiting, No diarrhea, No constipation Musculoskeletal: No swelling, No calf pain Female : No dysuria Psychiatric: + anxiety Skin: No rash (Daksha Pino, ALMITA-C) Medications Current Inpatient Medications Medications (Trade) Dose Ordered Sig/Giovanni Route Start Time Stop Time Status Last Admin Dose Admin Enoxaparin Sodium (Lovenox Inj) 40 mg Q24H SC 05/14/17 18:00 06/13/17 17:59 05/15/17 17:53 40 MG Sodium Chloride 1,000 ml @ 100 mls/hr Q10H IV 05/14/17 12:35 06/13/17 12:34 05/16/17 13:42 100 MLS/HR Acetaminophen (Tylenol Tab) 650 mg Q4H PRN PO 05/14/17 12:45 06/13/17 12:44 Ondansetron HCl (Zofran Inj) 4 mg Q6H PRN IV 05/14/17 12:45 06/13/17 12:44 Lorazepam (Ativan Tab) 0.5 mg BID PRN PO 05/14/17 13:45 06/13/17 13:44 05/16/17 10:45 0.5 MG Tiotropium [place] (Spiriva Handihaler Inhaler) 1 puff DAILY INH 05/15/17 09:00 06/14/17 08:59 05/16/17 10:40 1 PUFF Menthol (Nice Lanette) 1 lanette PRN PRN PO 05/14/17 20:30 06/13/17 20:29 Arformoterol Tartrate (Brovana 15MCG/ 2ML Neb Soln) 15 mcg BIDR INH 05/15/17 20:00 06/14/17 19:59 05/16/17 07:14 15 MCG Budesonide (Pulmicort Respules 0.5MG/ 2ML Neb Soln) 0.5 mg BIDR INH 05/15/17 20:00 06/14/17 19:59 05/16/17 07:13 0.5 MG Albuterol Sulfate (Ventolin 0.083% 2.5MG/3ML Neb) 2.5 mg Q4 PRN INH 05/15/17 12:00 06/14/17 11:59 05/15/17 15:55 2.5 MG Levofloxacin (Levaquin Tab) 750 mg DAILY@11 PO 05/16/17 11:00 05/21/17 10:59 05/16/17 10:41 750 MG (Daksha Pino PA-C) Objective Vital Signs Date Time Temp Pulse Resp B/P (MAP) Pulse Ox O2 Delivery O2 Flow Rate FiO2 05/16/17 09:50 36.5 05/16/17 08:20 Nasal Cannula 2.0 05/16/17 07:30 90 20 103/69 (80) 97 Nasal Cannula 2.0 05/16/17 07:16 77 16 94 Nasal Cannula 2.0 05/16/17 00:18 36.4 73 20 97/62 (74) 99 2.0 05/15/17 23:11 93 Nasal Cannula 2.0 05/15/17 19:00 Nasal Cannula 2.0 05/15/17 18:31 91 16 96 Nasal Cannula 2.0 05/15/17 16:25 Nasal Cannula 2.0 05/15/17 15:57 72 16 97 Nasal Cannula 2.0 05/15/17 15:51 36.4 93 16 114/75 (88) 96 Nasal Cannula 2.0 (Daksha Pino PA-C) Physical Exam General Appearance: no apparent distress (but is anxious) Eyes: sclerae normal ENT: hearing grossly normal Neck: supple, no JVD, trachea midline Respiratory/Chest: no respiratory distress, no accessory muscle use, + decreased breath sounds (in RML region and minimally at bases b/l) Cardiovascular: regular rate, rhythm, no gallop, no murmur Abdomen: normal bowel sounds, non tender, soft Extremities: no pedal edema Neurologic/Psychiatric: alert Skin: normal color, warm/dry (Daksha Pino, PA-C) Assessment and Plan 77 yo female with history of COPD/asthma and chronic hypoxia, presents with signs of sepsis due to right sided pneumonia Sepsis POA due to Pneumonia: - Levaquin 750 mg po daily - Reduce NSS to 75 mL/hr and encourage oral intake - [place] anxious on Duonebs - Brovana and Pulmicort nebs - Albuterol nebs PRN Hyponatremia: RESOLVED - Likely from dehydration and still somewhat dry on examination but improving Chronic Hypoxic Respiratory Failure 2/2 COPD/Asthma: Continuous 2 L - Currently on baseline O2 Anxiety: - Very anxious and complaints of "heebie jeebies" and does have underlying anxiety - Ativan PRN but would like to avoid this and will start Lexapro 5 mg daily and can be titrated up as outpatient but would be cautious given age DVT Prophylaxis: Lovenox Code Status: FULL RESUSCITATION Disposition: - Plan to return home with HHS; son updated at bedside - Will have to take day by day with her but hoping discharge in next 1-2 days Discharge planning: home with home health (Daksha Pino, ALMITA-C) i personally examined pt and verified all morales point w A Alvarez PAC around noon feeling about the same anxious but willing to try to work with PT and breathing about the same this afternoon had decline as documented thsi evening i followed up as well - more labored breathing and tachycardia - but HR improving w increased fluids CXR w worsening pneumonia worsening pneumonia - ddx on worsening aspiration vs HAP -- cefepime/vanco, IVF , speech eval, supportive care. explained in length to son and pt signed out to night coverage (Naseem Arredondo D.O.)
--- NOTE | 2017-05-16 16:10 | DIAGNOSTIC IMAGING REPORT ---
CHEST ONE VIEW PORTABLE CLINICAL HISTORY: Shortness of breath. COMPARISON STUDY: Chest radiograph May 14, 2017. FINDINGS: Severe emphysema is again noted. A right apical cavity/bulla is unchanged. There may be associated pleural thickening with small bilateral pleural effusions. Extensive right lung airspace opacity has slightly progressed. Left basilar opacity has progressed. Cardiac size is stable. Mediastinal contours are stable. IMPRESSION: 1. Progression of extensive right lung and left basilar airspace opacity which suggests multifocal pneumonia. Radiographic follow up to ensure resolution is recommended. 2. No significant change in appearance of the right apical cavity/bulla. 3. Severe emphysema. 4. Small bilateral pleural effusions. Electronically signed by: Shahriar Ojeda M.D. 05/16/2017 4:08 PM Dictated Date/Time: 05/16/2017 4:05 PM
--- NOTE | 2017-05-16 16:27 | Progress Note ---
Progress Note Date of Service May 16, 2017. Progress Note Patient was re-evaluated around 1530 as patient was requesting Albuterol breathing treatment however was tachy in 130s. Patient is significantly anxious and continues to complain of her "heebie jeebies". She has mildly labored breathing and a lot of upper airway sputum but weak cough and not expectorating the mucous well. Patient was repositioned in bed in a more upright position and this seemed to help. Surprisingly had good strength to help lift herself in the bed. Patient is very sluggish and starts to try and say something but takes a while to get words out. She initially had to take breaks frequently between words due to her breathing but before leaving the room she was able to say full short phrases. CXR shows progressing consolidations and EKG with sinus tachycardia. Several leads with poor voltage for analysis but no direct ischemic findings noted. Given significant weakness concern for possible aspiration. Will transfer to telemetry for rhythm monitoring and oral suction to help with secretions. Will continue to watch fluid balance to prevent fluid overload. She is at a positive intake but no JVD present and CXR with minimal effusions. Mouth still looks generally dry but improved from previous days. Given weakness and possible risk for aspiration will do bedside dysphagia screen and have SPEED BELT SANDER TENDER evaluate. For anxiety, can cautiously utilize IV Ativan but will need attentive monitoring of respiratory status.
[2017-05-16] MEDS ORDERED: NYSTATIN SUSP 500,000 U/5 ML UDC PO PRN (17:15)
[2017-05-16] MEDS: ENOXAPARIN 40 MG/0.4 ML SYR SC SCH (17:51)
[2017-05-16] MEDS ORDERED: SODIUM CHLORIDE 0.9% 1000ML 1,000 ML IV SCH (19:00)
--- NOTE | 2017-05-16 19:36 | Pharmacy Progress Note ---
Pharmacy Abx Initial Consult Date of Service May 16, 2017. Pharmacy Dosing Scope Date of Consult: 05/16/17 Consultation requested by: Dr. Arredondo Pharmacy is consulted to initiate Vancomycin IV dosing therapy, order appropriate labs and adjust drug dose/frequency. Subjective The patient is a 77 year old female admitted on May 14, 2017 at 12:38. Objective Height (Feet): 5 Height (Inches): 3.00 Weight (Kilograms): 49.200 Vital Signs (Past 12Hrs) Vital Signs Past 12 Hours Date Time Temp Pulse Resp B/P (MAP) Pulse Ox O2 Delivery O2 Flow Rate FiO2 05/16/17 19:21 118 18 94 Nasal Cannula 3.0 05/16/17 18:25 36.3 130 26 92 3.0 05/16/17 18:16 130 26 92/67 (75) 92 Nasal Cannula 3.0 05/16/17 18:14 36.3 130 26 83/61 (68) 92 Nasal Cannula 3.0 05/16/17 17:44 95 Nasal Cannula 2.0 05/16/17 16:00 95 Nasal Cannula 2.0 05/16/17 15:17 36.7 125 22 119/79 (92) 95 05/16/17 09:50 36.5 05/16/17 08:20 Nasal Cannula 2.0 Micro Results Date/Time Source Procedure Growth Status 05/14/17 15:30 Blood Blood Culture - Preliminary NO GROWTH TO DATE. Resulted 05/14/17 15:21 Blood Blood Culture - Preliminary NO GROWTH TO DATE. Resulted 05/14/17 00:00 Urine,Catheterized Urine Culture - Final MORE THAN THREE TYPES OF ORGANISMS WI... Complete Assessment & Plan Assessment 77 year old female already on Levaquin since 05/14/17, now initiated on Vancomycin and Cefepime IV to broaden coverage for HAP pathogens. All cultures negative to date. MRSA swab added. Plan Vancomycin IV * Loading dose: 1250 mg (25 mg/kg) * Maintenance dose: 750 mg IV (15 mg/kg) every 12 hours * Goal trough level for lung source: 15 to 20 mcg/mL * Trough level ordered for 05/18/17 @0730 prior to 0800 dose Pharmacy will continue to follow and will adjust dose/frequency as necessary. Thank you.
[2017-05-16] MEDS ORDERED: VANCOMYCIN CONSULT ACTIVE PRN (19:45)
[2017-05-16] MEDS ORDERED: VANCOMYCIN INJ 1,250 MG in SODIUM CHLORIDE 0.9% 250ML 250 ML IV ONE (20:00)
[2017-05-16] MEDS: ONDANSETRON INJ 2 MG/ML 2 ML VIAL IV PRN ×2 (20:12→23:49)
[2017-05-16] MEDS ORDERED: CEFEPIME IV 2,000 MG in DEXTROSE 5% 100ML 100 ML IV SCH (21:00)
[2017-05-16] MEDS ORDERED: CEFEPIME IV 2,000 MG in SYRINGE 7.5 ML IV SCH (23:00)
[2017-05-16] MEDS ORDERED: CEFEPIME IV 2,000 MG in DEXTROSE 5% 100ML 100 ML IV ONE (23:00)
[2017-05-16] MEDS ORDERED: NURSING VERBAL MED ORDER ONE (23:45)
[2017-05-17] VITALS (90 sets, daily range): BP systolic 22–130; BP diastolic 17–73; PULSE 91–131; TEMP 33.3–39; O2SAT 61–100
[2017-05-17] MEDS ORDERED: ONDANSETRON INJ 2 MG/ML 2 ML VIAL IV STA (00:02)
[2017-05-17 00:42] LABS: BASO % 0.1 %; BASO ABS # 0.01 K/uL (0-0.2); COMPLETE YES; HEMATOCRIT 34.8 % (37-47); IG% 0.8 %; LYMPH % 1.9 %; LYMPH ABS # 0.33 K/uL (1.2-3.4); MEAN CELL VOLUME 84.5 fL (80-100); MEAN CORPUSCULAR HEMOGLOBIN 26.5 pg (25-34); MEAN CORPUSCULAR HGB CONC 31.3 g/dl (32-36); MEAN PLATELET VOLUME 9.3 fL (7.4-10.4); MONO % 10.2 %; PLATELET COUNT 424 K/uL (130-400); RED BLOOD COUNT 4.12 M/uL (4.2-5.4); WHITE BLOOD COUNT 17.28 K/uL (4.8-10.8)
[2017-05-17 00:54] LABS: INR 1.6 (0.9-1.1); PARTIAL THROMBOPLASTIN RATIO 1.3; PROTHROMBIN TIME (PATIENT) 16.7 SECONDS (9.0-12.0)
[2017-05-17 01:21] LABS: ALB/GLOB RATIO 0.6 (0.9-2); BUN/CREATININE RATIO 24.5 (10-20); CALCIUM 7.6 mg/dl (8.5-10.1); CREATININE 0.72 mg/dl (0.60-1.20)
[2017-05-17] MEDS ORDERED: PHYTONADIONE INJ 10 MG in SODIUM CHLORIDE 0.9% 50ML 50 ML IV ONE (01:45)
--- NOTE | 2017-05-17 01:50 | Progress Note ---
Progress Note Date of Service May 17, 2017. Progress Note episode of vomiting x 1 plus degrading cognition over night, CMP and CBC and INR ordered acute hepatitis noted with AST> ALT with INR now 1.6 CT abd pelvis/chest ordered, Vit K 10 mg IV , - d/c Levaquin based on lit review can cause acute hepatitis/ failure in rare cases
[2017-05-17] MEDS ORDERED: OPTIRAY 320 IV PRN (02:00)
[2017-05-17] MEDS ORDERED: ERTAPENEM IV 1 GM in SODIUM CHLOR 0.9% AD-VAN 50ML 50 ML IV SCH (02:00)
[2017-05-17] MEDS ORDERED: NOREPINEPHRINE BIT INJ 8 MG in DEXTROSE 5% 500ML 500 ML IV PRN (03:04)
[2017-05-17] MEDS ORDERED: SODIUM BICARB 8.4% INJ 50 MEQ/50 ML SYR IV ONE ×2 (03:34→22:09)
[2017-05-17] MEDS ORDERED: RAPID SEQUENCE INDUCTION BAG ONE (03:42)
[2017-05-17] MEDS ORDERED: ALBUMIN HUMAN 25% 12.5 GM/50 ML VIAL IV ONE (03:45)
[2017-05-17] MEDS ORDERED: AZITHROMYCIN IV 500 MG in DEXTROSE 5% 250ML 250 ML IV ONE (03:45)
[2017-05-17] MEDS ORDERED: SODIUM CHLORIDE 0.9% 1000ML 1,000 ML IV STA (03:45)
[2017-05-17 03:51] LABS: ISTAT ARTERIAL BLOOD GAS HCO3 18 meq/L (19-24); ISTAT ARTERIAL BLOOD GAS PCO2 69 mmHg (35-46); ISTAT ARTERIAL BLOOD GAS PO2 47 mmHg (80-95); ISTAT ARTERIAL BLOOD GAS pH 7.03 (7.35-7.45); ISTAT CARBON DIOXIDE 20 mEq/l (24-31); ISTAT HEMATOCRIT 27 % (37-47); ISTAT HEMOGLOBIN 9.2 g/dl (12.0-16.0); ISTAT SODIUM 138 mEq/L (135-144)
[2017-05-17 03:56] LABS: FIBRINOGEN* 424 mg/dl (184-400)
[2017-05-17] MEDS: IPRATROPIUM BROMIDE HFA INHALER INH SCH ×4 (04:00→15:25)
[2017-05-17] MEDS: ALBUTEROL HFA 8 GM INHALER INH SCH ×4 (04:00→15:25)
[2017-05-17] MEDS ORDERED: METHYLPREDNISOLONE IV 80 MG in SYRINGE 0 ML IV ONE (04:00)
--- NOTE | 2017-05-17 04:14 | Anesthesiology Progress Note ---
Anesthesia Progress Note Date of Service May 17, 2017. Progress Notes Called for urgent intubation in patient with COPD exacerbation who appears to ge getting septic. Allergy to penicillin. On norepinephrine with blood pressures in 70's and 80's. Patient opens eyes to stimulus but doesn't respond , moves arms when assisting her with a bag/O2. Given etomidate 16mg IV, DL with Mac 3 with grade 1 view, ETT into trachea. Indicator purple, bilateral breath sounds. Chest film being done. Pulse oximeter works intermittently and is in high 90's.
[2017-05-17] MEDS ORDERED: KETAMINE HCL INJ 500 MG in SODIUM CHLORIDE 0.9% 500ML 490 ML IV PRN ×2 (04:15→16:15)
[2017-05-17 05:09] LABS: PROTHROMBIN TIME (PATIENT) 21.2 SECONDS (9.0-12.0)
[2017-05-17] MEDS ORDERED: FENTANYL CITRATE INJ 50 MCG/1 ML 2 ML VIAL ONE ×2 (05:25→17:31)
[2017-05-17 05:36] LABS: CKMB/CK RATIO 8.5 (0-3.0)
[2017-05-17] MEDS ORDERED: VASOPRESSIN INJ 50 UNITS in SODIUM CHLORIDE 0.9% 500ML 500 ML IV PRN ×2 (05:40→16:15)
[2017-05-17] MEDS ORDERED: KETAMINE HCL INJ 50 MG/ML 10 ML VIAL IV SCH (05:45)
[2017-05-17] MEDS ORDERED: ASCORBIC ACID 500 MG/ML 50 ML VIAL IV SCH (06:00)
--- NOTE | 2017-05-17 06:12 | Procedure Note ---
Procedure Note Procedure Date May 17, 2017. (Serafin Yates PA-C) Procedure Description Procedure Name: RIGHT IJ (Serafin Yates PA-C) Procedure Name: arterial line Procedure time out: side/site verified Consent obtained: written Performed by: attending Indications: diagnostic Contraindications: none Description: a line placed for septic shock, right femoral, strict sterile field, seldinger tech, one attempt, a waves noted, secured with one suture. covered with surgical dressing. Complications: none Patient tolerated procedure: well (oNa Richard MD) Central Line Procedure time out: side/site verified, patient ID confirmed, sterile procedure used Consent obtained: verbal (from son (Harshap)), emergent consent implied Time of procedure: 05:30 Performed by: physician primer charging tool setter Indications: poor venous access, central drug admin., long-term access Prep: chlorhexadine prep, sterile drape, sterile procedures used Anesthesia: local injection, lidocaine 1% without epi Volume anesthetic (ml's): 5 Central line lumen: triple Central line location: internal jugular (R) Additional details: percutaneous placement, ultrasound guidance, Selinger technique used, line sutured, good blood return CXR: appropriate position, no pneumothorax Complications: none Patient tolerated procedure: well Post-procedure vital signs: reviewed and stable Comments: Procedure: Central Line Placement Attending: Dr. Richard APC: Serafin Yates PA-C Indication: Central Drug Administration, Poor Venous Access, Multiple Lab Draws Necessary, etc. Anesthesia: Lidocaine 1% Emergent consent with verbal consent from the patient's son, Harshap (durable power of family law attorney). A time-out was completed verifying correct patient, procedure, site, positioning , and implants(s) or special equipment if applicable. Patients RIGHT Neck was cleansed and draped in the typical sterile fashion using Chloraprep. The Internal Jugular Vein and Carotid Artery were identified using ultrasound. The superficial tissue was anesthetized using 5 cc of 1% lidocaine without epinephrine under direct visualization with the ultrasound. After adequate anesthetization was achieved, the Internal Jugular vein was cannulated under direct ultrasound guidance using an introducer needle on a syringe. Good venous blood return was maintained prior to removal of syringe from introducer needle. Using Seldinger Technique, a guide wire was advanced through the introducer needle without resistance. The introducer needle was removed and ultrasound images were obtained of the guide wire within the Internal Jugular Vein and saved to the patients medical record. The dilator was advanced to the vessel without resistance. The dilator was exchanged for the triple lumen catheter which was advanced into the vessel without resistance. The guide wire was removed intact from the catheter without issue. Claves were placed on each catheter tip with confirmation of good blood flow from each lumen. The catheter was placed at 15 cm and sutured in place. BioPatch was applied to the catheter and a sterile Tegaderm dressing was applied over the catheter with careful attention to sterility. Patient tolerated procedure well. No immediate complications were met. Post procedure x-ray was completed, placement was appropriate and no pneumothorax was noted. Images obtained are saved for permanent record Procedural Ultrasound Guidance: Procedure Date: 05/17/2017 Indication: Poor access, need for vasoactive medications Attending: Dr. Richard APC: Serafin Yates PA-C Artery AND Vein visualized: YES Compressible Vein: YES Guidewire or Short Catheter seen in vein prior to dilation: YES Line confirmed in Vein with ultrasound: YES Images obtained are saved for permanent record (Serafin Yates PA-C)
[2017-05-17] MEDS: ASCORBIC ACID INJ 1,500 MG in NSS 100 ML IV SCH ×3 (06:17→17:04)
--- NOTE | 2017-05-17 06:33 | Critical Care Consultation ---
Critical Care Consultation Date of Consultation: May 17, 2017. Attending Physician: Jose Ortiz D.O. Reason for Consultation: Septic shock and multiorgan system failure History of Present Illness Dear Dr. Aviles: Thank you for the kind referral of Eda to critical care service. This is a 77-year-old female with a history of COPD, kyphoscoliosis, home O2 dependent, has been in her usual status of health up until a week ago when she started having increasing shortness of breath and lack of appetite. Her episodes accompanied also with cough and mild hemoptysis. The patient has been having off-and-on hemoptysis according to the son. The patient start taking Tylenol for the past 5 days daily for fever that she has been developing. Patient presented to the hospital where she was admitted for the past 3 days and treated for right upper pneumonia with cavitary lesion. The patient started with Levaquin and steroids in addition to bronchodilators. Today the patient started to have increasing shortness of breath and her blood pressure dropped down to the 70s systolic. The patient transferred to the ICU. In the ICU, the patient was noted to have hypoxia requiring intubation and not responding even to 100% earlier. The patient did have also blood pressure that has been systolically in the range of 70. Patient started also on IV fluid and pressors. Patient was intubated and had a central line placed, antibiotic broadened to cover typical, atypical and anaerobes. When I interviewed the patient, she was unable to give review of system as she was intubated, obtunded. Her Ultracet saturation was variable and coming up barely to 90%. Her blood pressure was on the low side 90/53. She does have positive JVP notable. In review of her imaging the patient did have right upper lobe cavity with pneumonia in addition to the dilated esophagus. The patient did have kyphoscoliosis with left lung recessive. Her labs were consistent with shock liver, positive non-ST elevation IN type II, leukocytosis, and elevated ammonia level. Past Medical/Surgical History As above, the patient had a history of COPD home O2 dependent at 2 L, history of Scoliosis, she is a lifetime nondrinker, no cardiac history, no history of hepatitis in the past either. Family History Cancer Diabetes mellitus Heart disease Lung disease Social History Smoking Status: Former Smoker Drug Use: none Marital Status: Housing Status: lives with family Occupation Status: retired Allergies Coded Allergies: Nitroglycerin (Unverified Allergy, Severe, SLOW HEART RATE, 05/14/17) Penicillins (Verified Allergy, Unknown, HIVES, 05/14/17) Home Medications Scheduled Arformoterol Tartrate (Brovana), 15 MCG IN Q12 Azithromycin (Zithromax), 250 MG PO MWF Budesonide (Pulmicort Respules 0.5MG/2ML), 2 ML INH Q12 Home O2 Therapy (Oxygen), 2 LITERS NA CONTINOUS Ipratropium-Albuterol (Duoneb), 3 ML INH DAILY Lorazepam (Ativan), 0.25-0.5 MG PO BID Tiotropium [place] (Spiriva Handihaler), 1 PUFF INH DAILY Scheduled PRN Albuterol Sulfate (Proair Respiclick), 2 PUFFS INH Q4H PRN for Shortness of Breath Nystatin (Nystatin Suspension), 5 ML PO QID PRN for THRUSH Current Inpatient Medications Current Inpatient Medications Medications (Trade) Dose Ordered Sig/Giovanni Route Start Time Stop Time Status Last Admin Dose Admin Enoxaparin Sodium (Lovenox Inj) 40 mg Q24H SC 05/14/17 18:00 06/13/17 17:59 Future Hold 05/16/17 17:51 40 MG Sodium Chloride 1,000 ml @ 125 mls/hr Q8H IV 05/14/17 12:35 06/13/17 12:34 05/16/17 13:42 100 MLS/HR Acetaminophen (Tylenol Tab) 650 mg Q4H PRN PO 05/14/17 12:45 06/13/17 12:44 Ondansetron HCl (Zofran Inj) 4 mg Q6H PRN IV 05/14/17 12:45 06/13/17 12:44 05/16/17 23:49 4 MG Menthol (Nice Lanette) 1 lanette PRN PRN PO 05/14/17 20:30 06/13/17 20:29 Arformoterol Tartrate (Brovana 15MCG/ 2ML Neb Soln) 15 mcg BIDR INH 05/15/17 20:00 06/14/17 19:59 Future Hold 05/16/17 19:17 15 MCG Budesonide (Pulmicort Respules 0.5MG/ 2ML Neb Soln) 0.5 mg BIDR INH 05/15/17 20:00 06/14/17 19:59 Future Hold 05/16/17 19:18 0.5 MG Escitalopram Oxalate (Lexapro Tab) 5 mg QAM PO 05/17/17 08:00 06/16/17 07:59 Nystatin (Mycostatin Susp) 5 ml QID PRN PO 05/16/17 17:15 05/26/17 17:14 Vancomycin HCl (Consult) 1 ea UD PRN N/A 05/16/17 19:45 06/15/17 19:44 Vancomycin HCl 750 mg/Sodium Chloride 265 ml @ 125 mls/hr Q12H IV 05/17/17 08:00 05/24/17 07:59 Ioversol (Optiray 320) 100 ml UD PRN IV 05/17/17 02:00 05/21/17 01:59 Ertapenem 1 gm/ Sodium Chloride 50 ml @ 120 mls/hr Q24H IV 05/17/17 02:00 05/19/17 01:59 05/17/17 02:34 120 MLS/HR Albuterol (Ventolin Hfa Inhaler) 4 puffs Q4R INH 05/17/17 04:00 06/16/17 03:59 Ipratropium [place] (Atrovent Hfa Inhaler) 4 puffs Q4R INH 05/17/17 04:00 06/16/17 03:59 Ketamine HCl 500 mg/Sodium Chloride 500 ml @ 0 mls/hr Q0M PRN IV 05/17/17 04:15 06/16/17 04:14 05/17/17 05:53 24.6 MLS/HR Albumin Human (Albumin 5%) 12.5 gm Q4 IV 05/17/17 08:00 05/19/17 04:01 Norepinephrine Bitartrate 8 mg/ Dextrose 508 ml @ 0 mls/hr Q0M PRN IV 05/17/17 05:40 06/16/17 05:39 Vasopressin 50 units/Sodium Chloride 502.5 ml @ 24.12 mls/ hr [id number] PRN IV 05/17/17 05:40 06/16/17 05:39 Azithromycin 500 mg/Dextrose 255 ml @ 125 mls/hr DAILY@0400 IV 05/18/17 04:00 05/23/17 06:03 Thiamine HCl 200 mg/Sodium Chloride 52 ml @ 208 mls/hr QAM IV 05/17/17 09:00 06/16/17 08:59 Methylprednisolone Sodium Succinate 40 mg/Syringe 0.64 ml @ 1.5 mls/min Q12 IV 05/17/17 09:00 06/16/17 08:59 Ascorbic Acid 1500 mg/Sodium Chloride 103 ml @ 206 mls/hr Q6H IV 05/17/17 06:15 05/21/17 00:44 Heparin Sodium (Porcine) (Heparin Sq 5000 Unit/0.5ml) 5,000 unit Q12 SQ 05/17/17 09:00 06/16/17 08:59 UNV Review of Systems Review of systems is not obtainable from the patient, according to the son she has been having increasing shortness of breath accompanied with cough and hemoptysis. The patient did have low-grade temperature and she has been losing weight, the timeframe for her and this apparently extended for more than a week. Recently she has been having intermittent hemoptysis. The patient did not have any chest pain, no abdominal pain, no nausea or vomiting or change in her bowel movements, no increased swelling in her lower extremities reported, no pain in her calves or in her joints and no rash. The rest of review of system was not obtainable via the son. Physical Exam Date Time Temp Pulse Resp B/P (MAP) Pulse Ox O2 Delivery O2 Flow Rate FiO2 05/17/17 04:09 60 05/17/17 02:41 100 24 97/47 (64) 94 4.0 70/47 (55) 05/17/17 02:30 35.1 05/16/17 23:59 Nasal Cannula 3.0 05/16/17 23:37 35.3 104 24 121/70 (87) 96 Nasal Cannula 3.0 05/16/17 20:00 Nasal Cannula 3.0 05/16/17 19:36 36.4 125 26 108/74 (85) 96 Nasal Cannula 3.0 05/16/17 19:21 118 18 94 Nasal Cannula 3.0 05/16/17 18:25 36.3 130 26 92 3.0 05/16/17 18:16 130 26 92/67 (75) 92 Nasal Cannula 3.0 05/16/17 18:14 36.3 130 26 83/61 (68) 92 Nasal Cannula 3.0 05/16/17 17:44 95 Nasal Cannula 2.0 05/16/17 16:00 95 Nasal Cannula 2.0 05/16/17 15:17 36.7 125 22 119/79 (92) 95 05/16/17 09:50 36.5 05/16/17 08:20 Nasal Cannula 2.0 05/16/17 07:30 90 20 103/69 (80) 97 Nasal Cannula 2.0 05/16/17 07:16 77 16 94 Nasal Cannula 2.0 General Appearance: other (cachexia) Eyes: no discharge ENT: normal mouth exam, other (intubated with ET tube to 19 cm by the lips) Neck: other (positive JVP noted) Respiratory: rhonchi (rhonchi bilaterally.), wheezing, other Cardiovasular: normal S1S2, no M/G/R, no murmur, JVD, other (occasional ectopic beats.) Abdomen: non tender, no guarding Upper Extremities: no edema Lower Extremities: no edema Neuro: other (sedated.) Laboratory Results Last 24 Hours Test 05/17/17 00:33 05/17/17 01:08 05/17/17 02:30 05/17/17 03:38 White Blood Count 17.28 K/uL Red Blood Count 4.12 M/uL Hemoglobin 10.9 g/dL Hematocrit 34.8 % Mean Corpuscular Volume 84.5 fL Mean Corpuscular Hemoglobin 26.5 pg Mean Corpuscular Hemoglobin Concent 31.3 g/dl Platelet Count 424 K/uL Mean Platelet Volume 9.3 fL Neutrophils (%) (Auto) 87.0 % Lymphocytes (%) (Auto) 1.9 % Monocytes (%) (Auto) 10.2 % Eosinophils (%) (Auto) 0.0 % Basophils (%) (Auto) 0.1 % Neutrophils # (Auto) 15.04 K/uL Lymphocytes # (Auto) 0.33 K/uL Monocytes # (Auto) 1.76 K/uL Eosinophils # (Auto) 0.00 K/uL Basophils # (Auto) 0.01 K/uL RDW Standard Deviation 48.7 fL RDW Coefficient of Variation 15.7 % Immature Granulocyte % (Auto) 0.8 % Immature Granulocyte # (Auto) 0.14 K/uL Nucleated RBC Absolute Count (auto) 0.02 K/uL Nucleated Red Blood Cells % 0.1 % Prothrombin Time 16.7 SECONDS Prothromb Time International Ratio 1.6 Activated Partial Thromboplast Time 33.0 SECONDS Partial Thromboplastin Ratio 1.3 Sodium Level 137 mmol/L Potassium Level 5.0 mmol/L Chloride Level 109 mmol/L Carbon Dioxide Level 21 mmol/L Anion Gap 7.0 mmol/L Blood Urea Nitrogen 18 mg/dl Creatinine 0.72 mg/dl Est Creatinine Clear Calc Drug Dose 51.6 ml/min Estimated GFR () 94.3 Estimated GFR (Non- 81.3 BUN/Creatinine Ratio 24.5 Random Glucose 169 mg/dl Calcium Level 7.6 mg/dl Total Bilirubin 0.6 mg/dl Aspartate Amino Transf (AST/SGOT) 1658 U/L Alanine Aminotransferase (ALT/SGPT) 1079 U/L Alkaline Phosphatase 116 U/L Total Protein 6.0 gm/dl Albumin 2.2 gm/dl Globulin 3.8 gm/dl Albumin/Globulin Ratio 0.6 Lactic Acid Level 4.0 mmol/L Procalcitonin 0.88 ng/ml Fibrinogen 424 mg/dl Fibrin Degradation Products <10 mcg/ml Ammonia 65.0 umol/L Bedside Hemoglobin 9.2 g/dl Bedside Hematocrit 27 % Bedside Blood Gas pH (LAB) 7.03 Bedside Blood Gas pCO2 (LAB) 69 mmHg Bedside Blood Gas pO2 (LAB) 47 mmHg Bedside Blood Gas HCO3 (LAB) 18 meq/L Bedside Blood Gas Total CO2 20 mEq/l Bedside Blood Gas Base Excess (LAB) -12.0 meq/L Bedside Blood Gas O2 Saturation 62.0 % Bedside Sodium 138 mEq/L Bedside Potassium 5.0 mEq/L Test 05/17/17 04:41 Prothrombin Time 21.2 SECONDS Prothromb Time International Ratio 2.0 Phosphorus Level 6.0 mg/dl Magnesium Level 2.0 mg/dl Total Creatine Kinase 92 U/L Creatine Kinase MB 7.8 ng/ml Creatine Kinase MB Ratio 8.5 Troponin I 2.150 ng/ml Acetaminophen Level 6 ug/ml Diagnostic Results HER LABS AND IMAGING REVIEWED PERSONALLY. She has elevated liver enzymes with transaminitis, bilirubin was normal, ammonia level was elevated, platelets are normal but INR is rising to 2.0, leukocytosis, hematocrit is stable, BUN/ creatinine are stable, troponin 2.5, CAT scan of the chest reveals kyphoscoliosis with dilated esophagus, right upper lobe pneumonia with cavitary lesion that appeared to be old, left lower lobe infiltrate and consolidation, lymphadenopathy in the left and right hilum noted. Assessment & Plan #1 septic shock. The patient had poor capillary filling. Blood pressure has been supported by Levothroid. Systolic blood pressure barely at 90 with map of 63. #2 acute respiratory failure secondary to pneumonia, COPD exacerbation and kyphoscoliosis with restrictive lung pattern. #3 right upper lobe cavitary lesion, appeared to be old, likely infected with air-fluid level. Possible bleeding into the cavity as well given her history of hemoptysis. #4 non-ST elevation IN type II. #5 COPD with exacerbation, Gold level III. #6 shock liver, the patient is not in liver failure yet bilirubin remains normal however her ammonia level and INR are elevated. #7 the coagulopathy is related to shock liver rather than DIC. Her platelet count remain normal. #8 lactic acidosis due to the above. #9 respiratory acidosis, acute on chronic contributing to her low pH. #10 cachexia and weight loss with cavitary lesion is concerning in a patient with history of COPD for possibility of primary lung malignancy. This cannot be evaluated at this point to due to severe hypoxia. Plan: #1 due to the low blood pressure I will start the patient on ketamine drip for sedation. #2 I will start the patient on fentanyl on as needed basis. #3 would keep the patient sleeping score at -2. #4 I agree with vancomycin, agree with Ertapenem instead of cefepime to cover for anaerobes. Meanwhile agree with stopping Levaquin and start the patient on azithromycin to cover atypicals. #5 we will check urine Legionella antigen. #6 would obtain sputum sample. #7 the ventilator would be adjusted to pressure-controlled mode and keep her tidal volume 300-350 only. #8 obtain ABG after that a line being placed. #9 central line and A-line being placed by my colleague DAISY Ramirez, appreciate his input. #10 I would obtain echocardiogram in the face of rising troponin and to evaluate for right-sided failure. Given her JVP history of significant COPD and restrictive lung disease. #11 although the patient had no history of Tylenol overdose but she is only 49 kg and she has been taking Tylenol on a daily basis. I will start the patient on NAC protocol. #12 I will start the patient also on vitamin C, thiamine, albumin for blood pressure support. #13 I would increase her normal saline from 75 to125 mL per hour. #14 one monitor her urine output closely and replete electrolytes. #15 although lactic acid trending could be helpful however the patient does have liver damage and it would be deceiving at this point. #16 despite the fact the patient INR is 2.0 but she is not on any anticoagulation, I will start the patient on heparin subcutaneous for DVT prophylaxis. Auro- anticoagulation is not adequate for DVT prophylaxis. #17 once her oxygen requirement is done we'll proceed with a bronchoscopy. #18 concerns for malignancy should be always be raised in a patient who had right upper lobe cavity. #19 PPI for GI prophylaxis especially in this patient with dilated esophagus noted on the CAT scan. The patient is at risk for aspiration. #20 I will start the patient on tube feeding once her blood pressure is improving. #21 I had a long discussion with the son who was at the bedside. He is in agreement with the plan. All his questions being answered. He would like his mother to continue to be full code. Case discussed in details with the staff and with the family. Critical care time spent with the patient was 60 minutes excluding procedure time.
--- NOTE | 2017-05-17 06:35 | Procedure Note ---
Procedure Note Procedure Date May 17, 2017. Procedure Description Procedure Name: Central line placement. Procedure time out: side/site verified Consent obtained: written Performed by: attending, physician computer sciences professor Indications: diagnostic, therapeutic Contraindications: none Description: The patient was already intubated and in supine position. Central line was needed and the patient was in septic shock for multiple drips. Consent obtained from the son, risk and benefits explained in details by my colleague Serafin Yates, PAC. Agree to the procedure. The patient had a procedure done under strict sterile field. The skin was prepped with chlorhexidine. Under ultrasound guidance at the anterior approach of the IJ 5 mL 1% lidocaine was injected. Using Seldinger technique line was placed to 15 cm. All ports were flushed with normal saline. We'll line was sutured with 2 surgical sutures. Covered with surgical dressing. Strict sterility was practiced. Chest x-ray was done tip of the line at the SVC, no pneumothorax. Patient tolerated the procedure well no immediate complications. I was present throughout the entire procedure. Complications: none
--- NOTE | 2017-05-17 06:36 | Critical Care Consultation ---
Critical Care Consultation Date of Consultation: May 17, 2017. Attending Physician: Jose Ortiz D.O. Reason for Consultation: Worsening sepsis secondary to multifocal pneumonia with worsening respiratory status requiring intubation. Altered mental status. Hypotension requiring vasoactive medication. History of Present Illness Patient is a 77-year-old female with a significant past medical history for COPD who was admitted 2 days prior for sepsis related to a RIGHT-sided pneumonia. She had been treated with Levaquin and was receiving albuterol treatments. Overnight, the patient had progressive decline with worsening mental status and worsening respiratory status. Repeat labs demonstrated a moderate elevation in her white count as well as significant acute hepatitis with ST and ALT elevation. Of concern, the patient's INR was elevated at 1.6. Prior to arrival in the ICU, the patient had been treated with vitamin K. She received 2 A of bicarbonate and albumin as well. I was contacted in the ICU as the patient was now hypotensive, tachycardic, hypothermic, and hypoxic. On evaluation, the patient is altered and unable to answer questions appropriately. Her son, Severiano, is at bedside and able to answer questions appropriately in regards to the patient's care. Patient was started on peripheral vasopressors and transported to the ICU for further evaluation. I had an extensive conversation with the patient's son, and he reports that the patient would want "everything" done in the event decline in condition. He does report that the patient would want CPR as well as intubation and any other procedures including central line and arterial line as well as bronchoscopy and chest tube placement. At the time of my evaluation, the patient is unable to contribute to history of present illness. Past Medical/Surgical History Medical Problems: (1) Asthma (2) Collapse of left lung (3) Pneumonia (4) Sepsis Family History Cancer Diabetes mellitus Heart disease Lung disease Social History Smoking Status: Former Smoker Smokeless Tobacco Use: No Alcohol Use: none Drug Use: none Marital Status: Housing Status: lives with family Occupation Status: retired Allergies Coded Allergies: Nitroglycerin (Unverified Allergy, Severe, SLOW HEART RATE, 05/14/17) Penicillins (Verified Allergy, Unknown, HIVES, 05/14/17) Home Medications Scheduled Arformoterol Tartrate (Brovana), 15 MCG IN Q12 Azithromycin (Zithromax), 250 MG PO MWF Budesonide (Pulmicort Respules 0.5MG/2ML), 2 ML INH Q12 Home O2 Therapy (Oxygen), 2 LITERS NA CONTINOUS Ipratropium-Albuterol (Duoneb), 3 ML INH DAILY Lorazepam (Ativan), 0.25-0.5 MG PO BID Tiotropium [place] (Spiriva Handihaler), 1 PUFF INH DAILY Scheduled PRN Albuterol Sulfate (Proair Respiclick), 2 PUFFS INH Q4H PRN for Shortness of Breath Nystatin (Nystatin Suspension), 5 ML PO QID PRN for THRUSH Current Inpatient Medications Current Inpatient Medications Medications (Trade) Dose Ordered Sig/Giovanni Route Start Time Stop Time Status Last Admin Dose Admin Enoxaparin Sodium (Lovenox Inj) 40 mg Q24H SC 05/14/17 18:00 06/13/17 17:59 Future Hold 05/16/17 17:51 40 MG Sodium Chloride 1,000 ml @ 125 mls/hr Q8H IV 05/14/17 12:35 06/13/17 12:34 05/16/17 13:42 100 MLS/HR Acetaminophen (Tylenol Tab) 650 mg Q4H PRN PO 05/14/17 12:45 06/13/17 12:44 Ondansetron HCl (Zofran Inj) 4 mg Q6H PRN IV 05/14/17 12:45 06/13/17 12:44 05/16/17 23:49 4 MG Menthol (Nice Lanette) 1 lanette PRN PRN PO 05/14/17 20:30 06/13/17 20:29 Arformoterol Tartrate (Brovana 15MCG/ 2ML Neb Soln) 15 mcg BIDR INH 05/15/17 20:00 06/14/17 19:59 Future Hold 05/16/17 19:17 15 MCG Budesonide (Pulmicort Respules 0.5MG/ 2ML Neb Soln) 0.5 mg BIDR INH 05/15/17 20:00 06/14/17 19:59 Future Hold 05/16/17 19:18 0.5 MG Escitalopram Oxalate (Lexapro Tab) 5 mg QAM PO 05/17/17 08:00 06/16/17 07:59 Nystatin (Mycostatin Susp) 5 ml QID PRN PO 05/16/17 17:15 05/26/17 17:14 Vancomycin HCl (Consult) 1 ea UD PRN N/A 05/16/17 19:45 06/15/17 19:44 Vancomycin HCl 750 mg/Sodium Chloride 265 ml @ 125 mls/hr Q12H IV 05/17/17 08:00 05/24/17 07:59 Ioversol (Optiray 320) 100 ml UD PRN IV 05/17/17 02:00 05/21/17 01:59 Ertapenem 1 gm/ Sodium Chloride 50 ml @ 120 mls/hr Q24H IV 05/17/17 02:00 05/19/17 01:59 05/17/17 02:34 120 MLS/HR Albuterol (Ventolin Hfa Inhaler) 4 puffs Q4R INH 05/17/17 04:00 06/16/17 03:59 Ipratropium [place] (Atrovent Hfa Inhaler) 4 puffs Q4R INH 05/17/17 04:00 06/16/17 03:59 Ketamine HCl 500 mg/Sodium Chloride 500 ml @ 0 mls/hr Q0M PRN IV 05/17/17 04:15 06/16/17 04:14 05/17/17 05:53 24.6 MLS/HR Albumin Human (Albumin 5%) 12.5 gm Q4 IV 05/17/17 08:00 05/19/17 04:01 Norepinephrine Bitartrate 8 mg/ Dextrose 508 ml @ 0 mls/hr Q0M PRN IV 05/17/17 05:40 06/16/17 05:39 Vasopressin 50 units/Sodium Chloride 502.5 ml @ 24.12 mls/ hr [id number] PRN IV 05/17/17 05:40 06/16/17 05:39 Azithromycin 500 mg/Dextrose 255 ml @ 125 mls/hr DAILY@0400 IV 05/18/17 04:00 05/23/17 06:03 Thiamine HCl 200 mg/Sodium Chloride 52 ml @ 208 mls/hr QAM IV 05/17/17 09:00 06/16/17 08:59 Methylprednisolone Sodium Succinate 40 mg/Syringe 0.64 ml @ 1.5 mls/min Q12 IV 05/17/17 09:00 06/16/17 08:59 Ascorbic Acid 1500 mg/Sodium Chloride 103 ml @ 206 mls/hr Q6H IV 05/17/17 06:15 05/21/17 00:44 Review of Systems Unable to obtain secondary to patient's current mental status. Physical Exam Date Time Temp Pulse Resp B/P (MAP) Pulse Ox O2 Delivery O2 Flow Rate FiO2 05/17/17 04:09 60 05/17/17 02:41 100 24 97/47 (64) 94 4.0 70/47 (55) 05/17/17 02:30 35.1 05/16/17 23:59 Nasal Cannula 3.0 05/16/17 23:37 35.3 104 24 121/70 (87) 96 Nasal Cannula 3.0 05/16/17 20:00 Nasal Cannula 3.0 05/16/17 19:36 36.4 125 26 108/74 (85) 96 Nasal Cannula 3.0 05/16/17 19:21 118 18 94 Nasal Cannula 3.0 05/16/17 18:25 36.3 130 26 92 3.0 05/16/17 18:16 130 26 92/67 (75) 92 Nasal Cannula 3.0 05/16/17 18:14 36.3 130 26 83/61 (68) 92 Nasal Cannula 3.0 05/16/17 17:44 95 Nasal Cannula 2.0 05/16/17 16:00 95 Nasal Cannula 2.0 05/16/17 15:17 36.7 125 22 119/79 (92) 95 05/16/17 09:50 36.5 05/16/17 08:20 Nasal Cannula 2.0 05/16/17 07:30 90 20 103/69 (80) 97 Nasal Cannula 2.0 05/16/17 07:16 77 16 94 Nasal Cannula 2.0 VITAL SIGNS - Vital signs and nursing notes were reviewed. GENERAL - 77-year-old cachetic appearing female in moderate acute distress. Unable to communicate HEAD - NC/AT. EYES - PERRL with EOMI bilaterally. Sclera anicteric. EARS - No deformities of external structures noted on gross examination bilaterally. NOSE - Midline and without cyanosis. No epistaxis or purulent drainage noted. MOUTH/OROPHARYNX - Without perioral cyanosis. Buccal mucosa pink and moist and without leukoplakia. Tongue midline with equal elevation of palate bilaterally. NECK - Neck with FROM. Supple to palpation. Moderate JVD noted bilaterally. LUNGS - Chest wall symmetric without accessory muscle use, intercostals retractions, or central cyanosis. Distant breath sounds noted throughout. Tachypneic. CARDIAC - RRR with S1/S2. No murmur, rubs, or gallops appreciated. ABDOMEN - Abdominal contour scaphoid and without pulsations or visible masses. BS normoactive all four quadrants. No tenderness, palpable masses, hepatosplenomegaly, or ascites noted. EXTREMITIES - No clubbing or peripheral cyanosis. No pretibial edema present. +1 /5 radial pulses palpated throughout. NEUROLOGIC - Unable to assess secondary to patient's current mental status. Laboratory Results Last 24 Hours Test 05/17/17 00:33 05/17/17 01:08 05/17/17 02:30 05/17/17 03:38 White Blood Count 17.28 K/uL Red Blood Count 4.12 M/uL Hemoglobin 10.9 g/dL Hematocrit 34.8 % Mean Corpuscular Volume 84.5 fL Mean Corpuscular Hemoglobin 26.5 pg Mean Corpuscular Hemoglobin Concent 31.3 g/dl Platelet Count 424 K/uL Mean Platelet Volume 9.3 fL Neutrophils (%) (Auto) 87.0 % Lymphocytes (%) (Auto) 1.9 % Monocytes (%) (Auto) 10.2 % Eosinophils (%) (Auto) 0.0 % Basophils (%) (Auto) 0.1 % Neutrophils # (Auto) 15.04 K/uL Lymphocytes # (Auto) 0.33 K/uL Monocytes # (Auto) 1.76 K/uL Eosinophils # (Auto) 0.00 K/uL Basophils # (Auto) 0.01 K/uL RDW Standard Deviation 48.7 fL RDW Coefficient of Variation 15.7 % Immature Granulocyte % (Auto) 0.8 % Immature Granulocyte # (Auto) 0.14 K/uL Nucleated RBC Absolute Count (auto) 0.02 K/uL Nucleated Red Blood Cells % 0.1 % Prothrombin Time 16.7 SECONDS Prothromb Time International Ratio 1.6 Activated Partial Thromboplast Time 33.0 SECONDS Partial Thromboplastin Ratio 1.3 Sodium Level 137 mmol/L Potassium Level 5.0 mmol/L Chloride Level 109 mmol/L Carbon Dioxide Level 21 mmol/L Anion Gap 7.0 mmol/L Blood Urea Nitrogen 18 mg/dl Creatinine 0.72 mg/dl Est Creatinine Clear Calc Drug Dose 51.6 ml/min Estimated GFR () 94.3 Estimated GFR (Non- 81.3 BUN/Creatinine Ratio 24.5 Random Glucose 169 mg/dl Calcium Level 7.6 mg/dl Total Bilirubin 0.6 mg/dl Aspartate Amino Transf (AST/SGOT) 1658 U/L Alanine Aminotransferase (ALT/SGPT) 1079 U/L Alkaline Phosphatase 116 U/L Total Protein 6.0 gm/dl Albumin 2.2 gm/dl Globulin 3.8 gm/dl Albumin/Globulin Ratio 0.6 Lactic Acid Level 4.0 mmol/L Procalcitonin 0.88 ng/ml Fibrinogen 424 mg/dl Fibrin Degradation Products <10 mcg/ml Ammonia 65.0 umol/L Bedside Hemoglobin 9.2 g/dl Bedside Hematocrit 27 % Bedside Blood Gas pH (LAB) 7.03 Bedside Blood Gas pCO2 (LAB) 69 mmHg Bedside Blood Gas pO2 (LAB) 47 mmHg Bedside Blood Gas HCO3 (LAB) 18 meq/L Bedside Blood Gas Total CO2 20 mEq/l Bedside Blood Gas Base Excess (LAB) -12.0 meq/L Bedside Blood Gas O2 Saturation 62.0 % Bedside Sodium 138 mEq/L Bedside Potassium 5.0 mEq/L Test 05/17/17 04:41 Prothrombin Time 21.2 SECONDS Prothromb Time International Ratio 2.0 Phosphorus Level 6.0 mg/dl Magnesium Level 2.0 mg/dl Total Creatine Kinase 92 U/L Creatine Kinase MB 7.8 ng/ml Creatine Kinase MB Ratio 8.5 Troponin I 2.150 ng/ml Acetaminophen Level 6 ug/ml Diagnostic Results Diagnostic imaging studies were reviewed by myself and radiologist reports were reviewed as well. Assessment & Plan (1) Altered mental status (2) Septic shock (3) Shock liver (4) Pneumonia (5) Sepsis (6) Elevated troponin Reason Critically Ill: Worsening sepsis secondary to multifocal pneumonia with worsening respiratory status requiring intubation. Altered mental status. Hypotension requiring vasoactive medication. Neuro - * CAM ICU: POSITIVE * Sedated on Ketamine with Fentanyl pushes PRN * History of Brain Aneurysm watched closely [place] [facility] [place] Altered mental status likely related to sepsis. Will monitor for any neurological changes. Cardiac - * No history of cardia disease otherwise. * Will check troponins in the setting of hypotension/tachycardia. * Evaluate EF for dilated cardiomyopathy in the setting of infection (Takotsubo) . * Monitor of telemetry. * Hypotension 2/2 Sepsis: * Started on Levophed. * Art line for close BP monitoring. Respiratory - * Acute RIGHT sided pneumonia on chronic COPD progressing to septic shock. * Antibiotics to include Vanc, Ertapenem, Azithromycin. * Solu-Medrol * Ventilatory support w/ serial ABGs * Aggressive pulmonary toilet. * ??Bronchoscopy with BAL if BP allows. GI - * NPO at this time. * Assess for tube feeds if off pressors. RENAL/LYTES - * Electrolytes stable at this time. * Monitor daily. - * Esteban Catheter to gravity. * Strict I&Os ENDO - * No h/o DM or thyroid Dz * BSGs in the setting of aggressive IV steroids. * ISS per protocol as needed. HEME - * Stable H&H * Elevated INR in the setting of shock liver. * Monitor. ID - * Septic shock 2/2 pneumonia: * Blood cultures pending. * Vanc/Ertapenem/Azithromycin * Vitamin C/Hydrocortisone/Thiamine * Pressors LINES/IV ACCESS - * PIVs x2 intact. * RIGHT IJ intact * Esteban Catheter to gravity. DVT PROPHYLAXIS - * Heparin * SCDs. I have personally spent 45 minutes of critical care time in the direct management of this patient. This is a life/limb threatening event. This includes time spent evaluating patient, direct bedside care, chart review, placing orders, interpretation of diagnostic studies, discussion with consultants, patient, and family members, as well as other required patient management activities. This time is exclusive of all separately billable procedures, and teaching time and separate from and in addition to any other critical care service time. Thank you for this consultation allow us to be part of this patient's care. Please refer to my attending physician's documentation for any further recommendations. agree with the above please see my other note. Problem Qualifiers (1) Altered mental status: Altered mental status type: unspecified Qualified Codes: R41.82 - Altered mental status, unspecified (2) Pneumonia: Pneumonia type: due to unspecified organism Laterality: right Lung location : unspecified part of lung Qualified Codes: J18.9 - Pneumonia, unspecified organism (3) Sepsis: Sepsis type: sepsis due to unspecified organism Qualified Codes: A41.9 - Sepsis, unspecified organism
[2017-05-17 06:42] LABS: MEAN CELL VOLUME 86.5 fL (80-100); MEAN CORPUSCULAR HEMOGLOBIN 25.9 pg (25-34); MEAN PLATELET VOLUME 9.7 fL (7.4-10.4); PLATELET COUNT 283 K/uL (130-400); RED BLOOD COUNT 3.47 M/uL (4.2-5.4); WHITE BLOOD COUNT 20.26 K/uL (4.8-10.8)
--- NOTE | 2017-05-17 06:53 | Procedure Note ---
Procedure Note Procedure Date May 17, 2017. Procedure Description Procedure Name: RIGHT Rad Art Line Attempt Procedure time out: side/site verified Consent obtained: verbal, emergent consent implied Time of procedure: 06:00 Performed by: physician immigration judge Indications: diagnostic, therapeutic Contraindications: none Complications: none Patient tolerated procedure: well Post-procedure vital signs: reviewed and stable Comments: Procedure: Arterial Line Placement Attending: Dr. iRchard APC: Serafin Yates PA-C Indication: Monitoring on Pressors Anesthesia: Lidocaine 1% Emergent consent was implied and verbal consent was obtained from the son, Severiano (durable power of research attorney). A time-out was completed verifying correct patient, procedure, site, positioning , and implant(s) or special equipment if applicable. Allens test was performed to ensure adequate perfusion. Patients RIGHT wrist was prepped and draped in the usual sterile fashion. Ultrasound guidance was used to aid needle placement. A 20g Arrow arterial line was introduced into the RIGHT artery. Unable to thread guidewire under multiple attempts. Procedure aborted. Blood Loss: Minimal Complications: None Procedural Ultrasound Guidance: Procedure Date: 05/17/2017 Indication: BP Monitoring Attending: Dr. Richard APC: Serafin Yatse PA-C Artery Identified: YES Line confirmed in Artery with ultrasound: NO Complications: NONE Patient tolerated procedure: WELL
--- NOTE | 2017-05-17 07:03 | DIAGNOSTIC IMAGING REPORT ---
CHEST ONE VIEW PORTABLE CLINICAL HISTORY: s/p RIGHT IJ tube position COMPARISON STUDY: 05/17/2017 4:05 AM FINDINGS: Right central catheter place in superior vena cava. No evidence for postprocedural pneumothorax. Unchanging bleb-like conformation right pulmonary apex. Unchanging parenchymal infiltrate in the left and to lesser extent right basilar regions. Endotracheal tube 2.5 cm above the tyrone. IMPRESSION: Right internal jugular line placed in the superior vena cava. Otherwise no change from the prior exam. The above report was generated using voice recognition software. It may contain grammatical, syntax or spelling errors. Electronically signed by: Chencho Burt M.D. 05/17/2017 7:01 AM Dictated Date/Time: 05/17/2017 7:00 AM
--- NOTE | 2017-05-17 07:31 | DIAGNOSTIC IMAGING REPORT ---
SINGLE VIEW CHEST CLINICAL HISTORY: Central venous catheter placement. FINDINGS: 2 AP, portable, upright chest radiographs are compared to chest x-ray and chest CT performed earlier the same day 05/17/2017. The examination is degraded by portable technique and patient rotation. Endotracheal and enteric tubes are unchanged in position. The cardiac silhouette is mildly enlarged and there is advanced atherosclerotic calcification of the thoracic aorta. The pulmonary vasculature is noncongested. There is severe emphysema with biapical bullous change and scarring. Fluid is again noted within the right apical bulla. There are patchy airspace opacities in the right midlung and at the left lung base, unchanged from earlier today. Pleural effusions are identified. No pneumothorax is clearly seen. The skeletal structures are osteopenic. The bony thorax is grossly intact. IMPRESSION: 1. No central venous catheter is identified as clinically queried. 2. Cardiomegaly and advanced emphysema. Apical bullae are similar to previous, and fluid is again noted within the right apical bulla. Superimposed infection is not excluded. 3. There are patchy airspace opacities in the right midlung and at the left lung base, unchanged earlier today. The appearance suggests superimposed pneumonia. Clinical correlation will be required. Radiographic follow-up to resolution is recommended. 4. Small pleural effusions. Electronically signed by: Sumanth Cotton M.D. 05/17/2017 7:30 AM Dictated Date/Time: 05/17/2017 7:27 AM
--- NOTE | 2017-05-17 07:37 | DIAGNOSTIC IMAGING REPORT ---
ABD/PELVIS IV CONTRAST ONLY CT DOSE: HISTORY: Nausea. Pain. acute elevation in LFT, vomiting TECHNIQUE: Multiaxial CT images of the abdomen and pelvis were performed following the use of intravenous contrast. A dose lowering technique was utilized adhering to the principles of ALARA. COMPARISON STUDY: None. FINDINGS: Lung bases show bibasilar parenchymal infiltrates combined with bronchiectasis involving components of the right middle lobe. There are small bilateral pleural effusions. Liver is grossly unremarkable. Kidneys negative for hydronephrosis. Moderate colonic wall thickening primarily in the sigmoid region. Small amount of reactive fluid within the low pelvic cul-de-sac. Short segment of the appendix is identified and appears unremarkable. IMPRESSION: Limited study suggesting nonspecific colitis. 2. No evidence for abscess collection or obstruction. 3. Mild reactive free fluid within the pelvic cul-de-sac. 4. Bibasilar atelectatic and/or infiltrative changes combine with small bilateral pleural effusions and bronchiectasis. 5. Mild body wall anasarca. The above report was generated using voice recognition software. It may contain grammatical, syntax or spelling errors. Electronically signed by: Chencho Burt M.D. 05/17/2017 7:36 AM Dictated Date/Time: 05/17/2017 7:31 AM
[2017-05-17] MEDS ORDERED: ESCITALOPRAM OXALATE 10 MG TAB PO SCH (08:00)
[2017-05-17] MEDS ORDERED: ALBUMIN HUMAN 5% 12.5 GM/250 ML VIAL IV SCH (08:00)
[2017-05-17] MEDS ORDERED: VANCOMYCIN INJ 750 MG in SODIUM CHLORIDE 0.9% 250ML 250 ML IV SCH (08:00)
[2017-05-17] MEDS ORDERED: NURSING VERBAL MED ORDER ONE ×2 (08:15→17:45)
[2017-05-17] MEDS: SODIUM CHLORIDE 0.9% 1000ML 1,000 ML IV SCH (08:17)
[2017-05-17 08:33] LABS: CALCIUM 6.7 mg/dl (8.5-10.1); CREATININE 0.91 mg/dl (0.60-1.20); POTASSIUM 5.2 mmol/L (3.5-5.1)
--- NOTE | 2017-05-17 08:37 | DIAGNOSTIC IMAGING REPORT ---
(CHEST) THORAX WITH CLINICAL HISTORY: 77 years-old Female presenting with acute elevation in LFTs, vomiting. TECHNIQUE: Multidetector CT imaging of the chest was performed after the administration of intravenous contrast. IV contrast: 93 mL of Optiray 320. A dose lowering technique was used consistent with the principles of ALARA (as low as reasonably achievable). COMPARISON: 05/10/2010. CT DOSE (mGy.cm): The estimated cumulative dose is 522.08 mGy.cm. FINDINGS: Education Rn topogram: Hyperinflation, pleural effusions, and cavitary radiolucency at the right apex. On soft tissue windows, normal thyroid and thoracic inlet. No axillary, supraclavicular, hilar, or mediastinal lymphadenopathy. Atherosclerosis of the aorta. Enlargement of the right and left pulmonary arteries increased from prior exam in 2009. The size of the central pulmonary arteries is discrepant to the distal pulmonary arteries. Multichamber enlargement of the heart. Mitral annular calcification. Small right pleural effusion, which may be loculated. Trace left pleural effusion. Bilateral pleural thickening and enhancement with pleural calcifications evident on the right. Few parenchymal calcifications noted in the liver. Reflux of contrast into the hepatic veins suggests elevated right heart pressure. On lung windows, multifocal consolidation primarily involving the right middle lobe and left lower lobe. The right upper lobe also demonstrates consolidative changes in the residual parenchyma, which is largely replaced by cavitary changes. These have worsened since the prior exam with a thick rind surrounding the dominant cavity (series 6 image 49). Consolidative changes are superimposed on severe emphysema, bronchial wall thickening, and multifocal debris within the subsegmental bronchi mostly in the dependent regions. Pleural nodularity evident along the left major fissure, new from prior. On bone windows, mildly exaggerated thoracic kyphosis with scoliosis. Osteopenia. IMPRESSION: 1. Significant interval increase in consolidative and cavitary changes since the prior exam in 2009. This is on a background of severe emphysema and bronchitis consistent with chronic obstructive pulmonary disease. The presence of pleural calcifications, pleuritis, and pleural effusions could relate to a history of asbestos exposure. However, the degree of parenchymal consolidation in the right middle lobe and left lower lobe would not be fully explained by this. Findings are most suspicious for an infectious etiology. The presence of significant cavitary change replacing much of the right upper lobe as well as fissural/pleural nodularity and soft tissue thickening in the left major fissure raises concern for mycobacterial infection among other infectious etiologies. Tuberculosis should be excluded in this patient. Continued imaging follow-up to resolution should be obtained to exclude the less likely diagnostic consideration of neoplasm. The report will be called/faxed according to standard departmental protocol. Electronically signed by: Oscar Darden M.D. 05/17/2017 8:35 AM Dictated Date/Time: 05/17/2017 7:10 AM
[2017-05-17] MEDS ORDERED: METHYLPREDNISOLONE IV 40 MG in SYRINGE 0 ML IV SCH ×2 (09:00→12:00)
[2017-05-17] MEDS ORDERED: HEPARIN SOD 5000 UNIT/0.5 ML CARP SQ SCH (09:00)
[2017-05-17] MEDS ORDERED: PANTOprazole INJ 40 MG in SYRINGE 0 ML IV SCH ×2 (09:00→21:00)
[2017-05-17] MEDS ORDERED: THIAMINE HCL INJ 200 MG in SODIUM CHLORIDE 0.9% 50ML 50 ML IV SCH (09:00)
[2017-05-17 09:35] LABS: ISTAT ARTERIAL BLOOD GAS HCO3 18 meq/L (19-24); ISTAT ARTERIAL BLOOD GAS PCO2 52 mmHg (35-46); ISTAT ARTERIAL BLOOD GAS PO2 214 mmHg (80-95); ISTAT ARTERIAL BLOOD GAS pH 7.14 (7.35-7.45); ISTAT CARBON DIOXIDE 19 mEq/l (24-31); ISTAT DELIVERY SYSTEM Ventilator; ISTAT FIO2 60 %; ISTAT PEEP 8; ISTAT RATE 20; ISTAT SITE Art Line; VE 9.2
--- NOTE | 2017-05-17 09:50 | ECHOCARDIOGRAM REPORT ---
*NOTICE TO RECEIVING CONSTITUTION PARTY AGENCY This information is strictly Confidential and protected under [place] law. [place] law prohibits you from making any further disclosure of this information unless further disclosure is expressly permitted by the written consent of the person to whom it pertains or is authorized by law. A general authorization for the release of medical or other information is not sufficient for this purpose. Hospital accepts no responsibility if the information is made available to any other person, INCLUDING THE PATIENT. Interpretation Summary * Name: DANITA TAVARES Study Date: 05/17/2017 06:56 AM BP: 70/47 mmHg * Patient Location: .MSICU\S\E105\S\1 HR: 100 * : 1940 (M/d/yyy) Gender: Female Height: 63 in * Age: 77 yrs Ethnicity: CA Weight: 108 lb * Ordering Physician: Noa Richard * Referring Physician: Self, Referred * Performed By: Corinne Abarca RDCS * * Reason For Study: AMI * BSA: 1.5 m2 * -- Conclusions -- * 1. Normal left ventricular size with severely reduced systolic function. EF 25-30%. Basal wall segments appear to have normal wall motion. Otherwise, left ventricular wall segments appear akinetic. No left ventricular hypertrophy. No apical thrombus. * 2. Mildly dilated right ventricle with at least moderately reduced systolic function. Basal portion of right ventricle appears to have normal wall motion, and otherwise wall motion appears hypokinetic to akinetic. * 3. Restricted posterior mitral leaflet with mild to moderate regurgitation. * 4. There is moderate to severe tricuspid regurgitation. * 5. Image quality was enhanced with IV Definity. * 6. Mild pulmonary hypertension suggested. Estimated RVSP 44mmHg. * 7. Compared to prior study on 11/29/2015, LV systolic function is now severely reduced. Tricuspid regurgitation is now moderate to severe. Procedure Details * A contrast injection of Definity was performed to improve assessment of LV function. * Contrast was injected into an intravenous site in the central line. * One vial of Definity ultrasound contrast was diluted in normal saline to a total volume of 10 ml. A total of '2' ml of solution was administered during imaging. * Lot # [id number] of Definity utilized for procedure. * Expiration date 1 JUL 23. * The attending nurse who injected the contrast agent was ELIDIA GARCIA. Left Ventricle * Normal left ventricular size with severely reduced systolic function. EF 25-30%. Basal wall segments appear to have normal wall motion. Otherwise, left ventricular wall segments appear akinetic. No left ventricular hypertrophy. No apical thrombus. Right Ventricle * Mildly dilated right ventricle with at least moderately reduced systolic function. Basal portion of right ventricle appears to have normal wall motion, and otherwise wall motion appears hypokinetic to akinetic. Atria * The left atrial size is normal. * Right atrial size is normal. * There is no evidence of atrial septal defect, but resolution does not allow assessment for a patent foramen ovale. Mitral Valve * There is mild mitral annular calcification. * There is no mitral valve stenosis. * Restricted posterior mitral leaflet with mild to moderate regurgitation. Tricuspid Valve * The tricuspid valve is not well visualized, but is grossly normal. * There is no tricuspid stenosis. * There is moderate to severe tricuspid regurgitation. Aortic Valve * The aortic valve is trileaflet. * Aortic valve sclerosis mild, without significant aortic valvular stenosis. * No hemodynamically significant valvular aortic stenosis. * Trace aortic regurgitation. Pulmonic Valve * The pulmonary valve is inadequately visualized, but the Doppler data is adequate for interpretation. * There is no pulmonic valvular stenosis. * There is no significant pulmonary regurgitation. Great Vessels * The aortic root is normal size. * Blunted pulmonary venous flow pattern. Pericardium/Pleural * There is no pericardial effusion. Great Vessels * Dilated IVC with reduced inspiratory collapse. MMode 2D Measurements and Calculations IVSd 1.0 cm IVSs 1.5 cm LVIDd 4.4 cm LVPWd 1.0 cm LVPWs 1.5 cm IVS/LVPW 10 EDV(Teich) 89.0 ml EDV(cubed) 86.8 ml % IVS thick 44.7 % % LVPW thick 45.0 % LV mass(C)d 154.6 grams LV mass(C)dI 103.9 grams/m\S\2 Ao root diam 3.3 cm Ao root area 8.3 cm\S\2 LA dimension 3.5 cm LA/Ao 1.1 LVAd ap4 26.5 cm\S\2 LVLd ap4 7.8 cm EDV(MOD-sp4) 75.0 ml EDV(sp4-el) 77.1 ml LVAs ap4 21.9 cm\S\2 LVLs ap4 7.5 cm ESV(MOD-sp4) 51.7 ml ESV(sp4-el) 54.3 ml EF(MOD-sp4) 31.1 % EF(sp4-el) 29.6 % LVAd ap2 28.8 cm\S\2 LVLd ap2 7.0 cm EDV(MOD-sp2) 95.6 ml EDV(sp2-el) 100.4 ml LVAs ap2 24.0 cm\S\2 LVLs ap2 6.8 cm ESV(MOD-sp2) 68.9 ml ESV(sp2-el) 71.5 ml EF(MOD-sp2) 27.9 % EF(sp2-el) 28.8 % LVLd %diff -12.01 % EDV(MOD-bp) 90.3 ml LVLs %diff -10.20 % ESV(MOD-bp) 63.0 ml EF(MOD-bp) 30.2 % SV(MOD-sp4) 23.3 ml SI(MOD-sp4) 15.6 ml/m\S\2 SV(MOD-sp2) 26.7 ml SI(MOD-sp2) 17.9 ml/m\S\2 SV(MOD-bp) 27.2 ml SI(MOD-bp) 18.3 ml/m\S\2 SV(sp4-el) 22.8 ml SI(sp4-el) 15.3 ml/m\S\2 SV(sp2-el) 28.9 ml SI(sp2-el) 19.4 ml/m\S\2 Doppler Measurements and Calculations MV E max marky 110.6 cm/sec MV A max marky 48.0 cm/sec MV E/A 2.3 MV dec time 0.18 sec Ao V2 max 93.1 cm/sec Ao max PG 3.5 mmHg Ao max PG (full) 2.6 mmHg LV V1 max PG 0.87 mmHg LV V1 max 46.6 cm/sec MR max marky 380.1 cm/sec MR max PG 57.8 mmHg TR max marky 268.7 cm/sec RVSP(TR) 43.9 mmHg RAP systole 15.0 mmHg
[2017-05-17] MEDS ORDERED: GLUCOSE 10 TABS/TUBE PO PRN (10:00)
[2017-05-17] MEDS ORDERED: GLUCAGON FOR INJ 1 MG VIAL SQ PRN (10:00)
[2017-05-17] MEDS ORDERED: DEXTROSE 50% 50 ML SYR IV PRN (10:00)
[2017-05-17] MEDS ORDERED: CONSULT PHARMACY PRN (10:00)
[2017-05-17] MEDS ORDERED: GLUCOSE 40% GEL 15 GM TUBE PO PRN (10:00)
[2017-05-17] MEDS ORDERED: DOBUTamine 500MG / 250ML D5W ONE (10:10)
[2017-05-17] MEDS ORDERED: DOBUTamine / D5W 500 MG IV SCH (10:15)
[2017-05-17 10:16] LABS: ALB/GLOB RATIO 0.9 (0.9-2)
[2017-05-17] MEDS ORDERED: ACETYLCYSTEINE IV ONE ×4 (10:30→17:00)
[2017-05-17] MEDS ORDERED: DEXTROSE 5% IV ONE ×3 (10:30→17:00)
[2017-05-17] MEDS ORDERED: LEVOFLOXACIN / D5W 750 MG in PREMIXED IN D5W 150 ML IV SCH (11:00)
[2017-05-17] MEDS ORDERED: ALBUMIN HUMAN 5% 12.5 GM/250 ML VIAL IV PRN (12:00)
[2017-05-17] MEDS: NOREPINEPHRINE BIT INJ 8 MG in DEXTROSE 5% 500ML 500 ML IV PRN ×2 (12:05→17:00)
[2017-05-17] MEDS ORDERED: ASPIRIN 81 MG ECTAB PO STA (12:37)
--- NOTE | 2017-05-17 13:15 | Palliative Care Consultation ---
Consultation Date of Consultation: May 17, 2017. Requesting Physician: Dr Richard Attending Physician: Dr Richard Reason for Consultation: Critical illness, assist family with decision making History of Present Illness Pt is a 77 yo female with a PMH of COPD - O2 dependent, brain aneurysm, h/ collapsed L lung and anxiety - who was admitted on 05/14 for fever, increased SOB and increased weakness at home for the previous week. Pt had had hospitalizations in the past for PNA and dehydration - she would be in the hospital for a few days and then go home. Pt was teated on this admission with IV antibiotics and IV Solumedrol as well as nebs. She continued to be weak, but her respiratory status was improving until late evening on 05/16 when she became more SOB and tachycardic. Pt was placed on telemetry . She started to drop her BP around midnight on 05/16 to 97/62 - it improved to 103/89 at 7:30 am. In the early hours of 05/17 , she dropped her SBP to 70's and was more hypoxic - she was transferred to the ICU , placed on pressors and intubated. Of note, her LFT's liana rapidly early this am, her lactic acid was 4.0, and her INR liana to 2.0. Pt is not making much urine and is being teated aggressively for septic shock. He BP remains low despite pressors. Met with at bedside briefly this am and later with son, Chilo, who just arrived from [facility]. Family is aware of her condition and hope that she will imprve some in the next 24-48 hours. voiced concerns regarding her "quality of life". Discussed pt on rounds and during the morning in the ICU. Past Medical/Surgical History Medical History: COPD, brain aneurysm, collapse of L lung, anxiety Surgical History: intubation, central line, art line Family History + for cancer, DM, heart disease, lung disease Social History Smoking Status: Former Smoker History of Alcohol Use: No Drug Use: none Marital Status: Housing Status: lives with family Occupation Status: retired 2 sons - Skip - lives locally and is [facility], and Chilo , who lives in [facility]. Review of Systems MARJORIE - pt intubated and unresponsive Allergies Coded Allergies: Nitroglycerin (Unverified Allergy, Severe, SLOW HEART RATE, 05/14/17) Penicillins (Verified Allergy, Unknown, HIVES, 05/14/17) Medications Current Inpatient Medications Medications (Trade) Dose Ordered Sig/Giovanni Route Start Time Stop Time Status Last Admin Dose Admin Enoxaparin Sodium (Lovenox Inj) 40 mg Q24H SC 05/14/17 18:00 06/13/17 17:59 Future Hold 05/16/17 17:51 40 MG Sodium Chloride 1,000 ml @ 75 mls/hr [id number] IV 05/14/17 12:35 06/13/17 12:34 05/17/17 08:17 75 MLS/HR Acetaminophen (Tylenol Tab) 650 mg Q4H PRN PO 05/14/17 12:45 06/13/17 12:44 Ondansetron HCl (Zofran Inj) 4 mg Q6H PRN IV 05/14/17 12:45 06/13/17 12:44 05/16/17 23:49 4 MG Menthol (Nice Lanette) 1 lanette PRN PRN PO 05/14/17 20:30 06/13/17 20:29 Arformoterol Tartrate (Brovana 15MCG/ 2ML Neb Soln) 15 mcg BIDR INH 05/15/17 20:00 06/14/17 19:59 Future Hold 05/16/17 19:17 15 MCG Budesonide (Pulmicort Respules 0.5MG/ 2ML Neb Soln) 0.5 mg BIDR INH 05/15/17 20:00 06/14/17 19:59 Future Hold 05/16/17 19:18 0.5 MG Escitalopram Oxalate (Lexapro Tab) 5 mg QAM PO 05/17/17 08:00 06/16/17 07:59 05/17/17 08:17 5 MG Nystatin (Mycostatin Susp) 5 ml QID PRN PO 05/16/17 17:15 05/26/17 17:14 Vancomycin HCl (Consult) 1 ea UD PRN N/A 05/16/17 19:45 06/15/17 19:44 Vancomycin HCl 750 mg/Sodium Chloride 265 ml @ 125 mls/hr Q12H IV 05/17/17 08:00 05/24/17 07:59 05/17/17 08:15 125 MLS/HR Ioversol (Optiray 320) 100 ml UD PRN IV 05/17/17 02:00 05/21/17 01:59 Albuterol (Ventolin Hfa Inhaler) 4 puffs Q4R INH 05/17/17 04:00 06/16/17 03:59 05/17/17 11:30 4 PUFFS Ipratropium [place] (Atrovent Hfa Inhaler) 4 puffs Q4R INH 05/17/17 04:00 06/16/17 03:59 05/17/17 11:30 4 PUFFS Ketamine HCl 500 mg/Sodium Chloride 500 ml @ 0 mls/hr Q0M PRN IV 05/17/17 04:15 06/16/17 04:14 05/17/17 05:53 24.6 MLS/HR Norepinephrine Bitartrate 8 mg/ Dextrose 508 ml @ 0 mls/hr Q0M PRN IV 05/17/17 05:40 06/16/17 05:39 05/17/17 12:05 0 MLS/HR Vasopressin 50 units/Sodium Chloride 502.5 ml @ 24.12 mls/ hr [id number] PRN IV 05/17/17 05:40 06/16/17 05:39 05/17/17 06:22 14,472 MLS/HR Azithromycin 500 mg/Dextrose 255 ml @ 125 mls/hr DAILY@0400 IV 05/18/17 04:00 05/23/17 06:03 Thiamine HCl 200 mg/Sodium Chloride 52 ml @ 208 mls/hr QAM IV 05/17/17 09:00 06/16/17 08:59 05/17/17 08:17 208 MLS/HR Methylprednisolone Sodium Succinate 40 mg/Syringe 0.64 ml @ 1.5 mls/min Q12 IV 05/17/17 09:00 06/16/17 08:59 05/17/17 08:15 1.5 MLS/MIN Ascorbic Acid 1500 mg/Sodium Chloride 103 ml @ 206 mls/hr Q6H IV 05/17/17 06:15 05/21/17 00:44 05/17/17 12:02 206 MLS/HR Heparin Sodium (Porcine) (Heparin Sq 5000 Unit/0.5ml) 5,000 unit Q12 SQ 05/17/17 09:00 06/16/17 08:59 05/17/17 08:18 5,000 UNIT Pantoprazole Sodium 40 mg/ Syringe 10 ml @ 5 mls/min DAILY@09,21 IV 05/17/17 09:00 06/16/17 08:59 05/17/17 11:20 5 MLS/MIN Imipenem/ Cilastatin Sodium 300 mg/Dextrose 106 ml @ 106 mls/hr Q6H IV 05/17/17 14:00 05/24/17 13:59 Miscellaneous Information (Pharmacy Consult) 1 ea UD PRN N/A 05/17/17 10:00 06/16/17 09:59 Acetylcysteine 2450 mg/Dextrose 512.25 ml @ 125 mls/ hr TODAY@1230 ONCE IV 05/17/17 12:30 05/17/17 16:35 05/17/17 12:02 125 MLS/HR Acetylcysteine 4900 mg/Dextrose 1,024.5 ml @ 62.5 mls/ hr TODAY@1700 ONCE IV 05/17/17 17:00 05/18/17 09:23 Insulin Aspart (novoLOG ASPART) SLIDING SCALE Q6H SC 05/17/17 12:00 06/16/17 11:59 Glucose (Glucose 40% Gel) 15-30 GRAMS 15 GRAMS... UD PRN PO 05/17/17 10:00 06/16/17 09:59 Glucose (Glucose Chew Tab) 4-8 Tablets 4 Tabl... UD PRN PO 05/17/17 10:00 06/16/17 09:59 Dextrose (Dextrose 50% 50ML Syringe) 25-50ML OF 50% DW IV FOR... UD PRN IV 05/17/17 10:00 06/16/17 09:59 Glucagon (Glucagon Inj) 1 mg UD PRN SQ 05/17/17 10:00 06/16/17 09:59 Dobutamine HCl 250 ml @ 0 mls/hr Q0M IV 05/17/17 10:15 06/16/17 10:14 Albumin Human (Albumin 5%) 12.5 gm Q4 PRN IV 05/17/17 12:00 Physical Exam Date Time Temp Pulse Resp B/P (MAP) Pulse Ox O2 Delivery O2 Flow Rate FiO2 05/17/17 11:32 50 05/17/17 11:00 36.3 103 27 /61 (72) 100 115/56 05/17/17 10:41 36.3 103 27 /61 (72) 100 115/56 05/17/17 10:36 36.2 106 27 91/64 (70) 100 112/55 05/17/17 10:31 36.2 104 27 94/58 (71) 99 111/55 05/17/17 10:30 36.2 101 26 (71) 100 109/56 05/17/17 10:26 36.2 102 28 106/65 (71) 100 113/55 05/17/17 10:21 36.1 105 26 99/60 (70) 100 113/55 05/17/17 10:16 36.1 103 26 95/68 (71) 87 114/55 05/17/17 10:15 36.1 104 27 (71) 87 114/55 05/17/17 10:11 36.0 106 27 90/73 (72) 94 113/56 05/17/17 10:06 36.0 106 28 /61 (72) 100 115/57 05/17/17 10:01 35.9 107 26 94/69 (70) 83 111/55 05/17/17 10:00 35.9 106 26 (70) 74 110/54 05/17/17 09:26 35.6 100 27 /61 (62) 94/49 05/17/17 09:22 35.6 102 26 30/26 (59) 77 89/47 05/17/17 09:20 50 05/17/17 09:16 33.3 106 21 /51 (65) 82 72/46 05/17/17 09:11 35.6 104 22 /53 (66) 75 87/45 05/17/17 09:10 60 05/17/17 09:01 35.5 103 20 /50 (57) 71 86/45 05/17/17 09:00 35.6 103 21 (57) 61 87/45 05/17/17 08:56 35.5 98 18 78/55 (55) 96 84/44 05/17/17 08:51 35.5 97 23 /52 (61) 82/43 05/17/17 08:46 35.5 95 21 77/57 (66) 97 82/44 05/17/17 08:41 35.5 96 24 /52 (54) 80/43 12/14/17 08:37 35.4 97 22 54/17 (53) 91 79/42 05/17/17 08:31 35.4 94 25 /51 (47) 92 69/37 05/17/17 08:30 35.4 95 22 (47) 81 70/37 05/17/17 08:26 35.4 94 22 65/51 (55) 100 05/17/17 08:25 35.4 95 23 /50 (56) 96 05/17/17 08:16 35.3 93 23 22/ (19) 95 70/38 05/17/17 08:11 35.3 91 22 /50 (48) 93 72/38 05/17/17 08:06 35.3 92 22 /50 (55) 88 71/37 05/17/17 08:01 35.3 92 22 /17 (18) 90 73/39 05/17/17 08:00 Mechanical Ventilator 60 05/17/17 08:00 35.3 94 23 (50) 89 74/39 05/17/17 07:00 35.1 92 22 100 05/17/17 06:12 60 05/17/17 04:09 60 05/17/17 02:41 100 24 97/47 (64) 94 4.0 70/47 (55) 05/17/17 02:30 35.1 05/16/17 23:59 Nasal Cannula 3.0 05/16/17 23:37 35.3 104 24 121/70 (87) 96 Nasal Cannula 3.0 05/16/17 20:00 Nasal Cannula 3.0 05/16/17 19:36 36.4 125 26 108/74 (85) 96 Nasal Cannula 3.0 05/16/17 19:21 118 18 94 Nasal Cannula 3.0 05/16/17 18:25 36.3 130 26 92 3.0 05/16/17 18:16 130 26 92/67 (75) 92 Nasal Cannula 3.0 05/16/17 18:14 36.3 130 26 83/61 (68) 92 Nasal Cannula 3.0 05/16/17 17:44 95 Nasal Cannula 2.0 05/16/17 16:00 95 Nasal Cannula 2.0 05/16/17 15:17 36.7 125 22 119/79 (92) 95 General Appearance: + pertinent finding (intubated and sedated) Eyes: + pertinent finding (eyes do not close completely, she will occasionally open R eye wider - not on command) ENT: + pertinent finding (ETT in place) Respiratory: + decreased breath sounds Cardiovascular: + tachycardia, + pertinent finding (diminished UE and LE pulses ) Abdomen: + abnormal bowel sounds, + distended Musculoskeletal: poor tone Neurologic/Psychiatric: + pertinent finding (Pt sedated) Skin: + pertinent finding (on warming blanket, pale) Laboratory Results Last 24 Hours Test 05/17/17 00:33 05/17/17 01:08 05/17/17 02:30 05/17/17 03:38 White Blood Count 17.28 K/uL Red Blood Count 4.12 M/uL Hemoglobin 10.9 g/dL Hematocrit 34.8 % Mean Corpuscular Volume 84.5 fL Mean Corpuscular Hemoglobin 26.5 pg Mean Corpuscular Hemoglobin Concent 31.3 g/dl Platelet Count 424 K/uL Mean Platelet Volume 9.3 fL Neutrophils (%) (Auto) 87.0 % Lymphocytes (%) (Auto) 1.9 % Monocytes (%) (Auto) 10.2 % Eosinophils (%) (Auto) 0.0 % Basophils (%) (Auto) 0.1 % Neutrophils # (Auto) 15.04 K/uL Lymphocytes # (Auto) 0.33 K/uL Monocytes # (Auto) 1.76 K/uL Eosinophils # (Auto) 0.00 K/uL Basophils # (Auto) 0.01 K/uL RDW Standard Deviation 48.7 fL RDW Coefficient of Variation 15.7 % Immature Granulocyte % (Auto) 0.8 % Immature Granulocyte # (Auto) 0.14 K/uL Nucleated RBC Absolute Count (auto) 0.02 K/uL Nucleated Red Blood Cells % 0.1 % Prothrombin Time 16.7 SECONDS Prothromb Time International Ratio 1.6 Activated Partial Thromboplast Time 33.0 SECONDS Partial Thromboplastin Ratio 1.3 Sodium Level 137 mmol/L Potassium Level 5.0 mmol/L Chloride Level 109 mmol/L Carbon Dioxide Level 21 mmol/L Anion Gap 7.0 mmol/L Blood Urea Nitrogen 18 mg/dl Creatinine 0.72 mg/dl Est Creatinine Clear Calc Drug Dose 51.6 ml/min Estimated GFR () 94.3 Estimated GFR (Non- 81.3 BUN/Creatinine Ratio 24.5 Random Glucose 169 mg/dl Calcium Level 7.6 mg/dl Total Bilirubin 0.6 mg/dl Aspartate Amino Transf (AST/SGOT) 1658 U/L Alanine Aminotransferase (ALT/SGPT) 1079 U/L Alkaline Phosphatase 116 U/L Total Protein 6.0 gm/dl Albumin 2.2 gm/dl Globulin 3.8 gm/dl Albumin/Globulin Ratio 0.6 Lactic Acid Level 4.0 mmol/L Procalcitonin 0.88 ng/ml Fibrinogen 424 mg/dl Fibrin Degradation Products <10 mcg/ml Ammonia 65.0 umol/L Bedside Hemoglobin 9.2 g/dl Bedside Hematocrit 27 % Bedside Blood Gas pH (LAB) 7.03 Bedside Blood Gas pCO2 (LAB) 69 mmHg Bedside Blood Gas pO2 (LAB) 47 mmHg Bedside Blood Gas HCO3 (LAB) 18 meq/L Bedside Blood Gas Total CO2 20 mEq/l Bedside Blood Gas Base Excess (LAB) -12.0 meq/L Bedside Blood Gas O2 Saturation 62.0 % Bedside Sodium 138 mEq/L Bedside Potassium 5.0 mEq/L Test 05/17/17 04:41 05/17/17 06:22 05/17/17 07:52 05/17/17 09:18 White Blood Count 20.26 K/uL Red Blood Count 3.47 M/uL Hemoglobin 9.0 g/dL Hematocrit 30.0 % Mean Corpuscular Volume 86.5 fL Mean Corpuscular Hemoglobin 25.9 pg Mean Corpuscular Hemoglobin Concent 30.0 g/dl RDW Standard Deviation 51.2 fL RDW Coefficient of Variation 16.1 % Platelet Count 283 K/uL Mean Platelet Volume 9.7 fL Prothrombin Time 21.2 SECONDS Prothromb Time International Ratio 2.0 Phosphorus Level 6.0 mg/dl Magnesium Level 2.0 mg/dl Total Creatine Kinase 92 U/L Creatine Kinase MB 7.8 ng/ml Creatine Kinase MB Ratio 8.5 Troponin I 2.150 ng/ml Acetaminophen Level 6 ug/ml Hepatitis B Surface Antigen NEG Hepatitis C Antibody NEG Bedside Glucose 162 mg/dl Sodium Level 139 mmol/L Potassium Level 5.2 mmol/L Chloride Level 110 mmol/L Carbon Dioxide Level 19 mmol/L Anion Gap 11.0 mmol/L Blood Urea Nitrogen 20 mg/dl Creatinine 0.91 mg/dl Est Creatinine Clear Calc Drug Dose 40.8 ml/min Estimated GFR () 71.0 Estimated GFR (Non- 61.3 BUN/Creatinine Ratio 22.0 Random Glucose 198 mg/dl Calcium Level 6.7 mg/dl Total Bilirubin 1.0 mg/dl Aspartate Amino Transf (AST/SGOT) 4150 U/L Alanine Aminotransferase (ALT/SGPT) 2032 U/L Alkaline Phosphatase 152 U/L Total Protein 4.8 gm/dl Albumin 2.3 gm/dl Globulin 2.5 gm/dl Albumin/Globulin Ratio 0.9 Blood Gas Sample Site Art Line Bedside Blood Gas pH (LAB) 7.14 Bedside Blood Gas pCO2 (LAB) 52 mmHg Bedside Blood Gas pO2 (LAB) 214 mmHg Bedside Blood Gas HCO3 (LAB) 18 meq/L Bedside Blood Gas Total CO2 19 mEq/l Bedside Blood Gas Base Excess (LAB) -11.0 meq/L Bedside Blood Gas O2 Saturation 99.0 % Talon Test NA Oxygen Delivery Device Ventilator Bedside Oxygen Rate (breaths/min) 20 Blood Gas Minute Ventilation 9.2 Bedside FiO2 60 % Blood Gas PEEP 8 Test 05/17/17 11:21 05/17/17 12:00 05/17/17 12:37 Bedside Glucose (other) 196 mg/dl Assessment & Plan Palliative Performance Scale: 10 % (1) Septic shock Status: Acute Assessment & Plan: ON pressors and IV fluids (2) Altered mental status Status: Acute Assessment & Plan: Due to respiratory failure (3) Pneumonia Status: Acute Assessment & Plan: ON IV antibiotics (4) Shock liver Status: Acute Assessment & Plan: LFT's rising - cont to follow Discussed general condition with poor hear function, poor lung function with PNA and poor renal function. Pt on "life support" , explained to . concerned about her quality of life and if she is suffering at all. reassured that she is sedated for her comfort as well as for respiratory "rest". Son well informed of her condition . Plan to meet with family in am - want at least 24 hours to see if condition changes. Gave contact inf to sonChilo . Total time" 75 min with > 50% of time spent at bedside providing support to family as well as answering questions.
--- NOTE | 2017-05-17 13:40 | Critical Care Progress Note ---
Critical Care Progress Note Date of Service May 17, 2017. Attending Dr. Richard Subjective The patient remains ventilated, sedated with ketamine. Hemodynamically stable with a pressors including Levophed and vasopressin. Appreciate Dr. Worthington from cardiology, patient was started on dobutamine due to cardiomyopathy with poor ejection fraction on the echocardiogram. The review of system was not obtainable from the patient herself as she has been sedated and intubated. Central line and A-line were placed and the patient remains vented. Objective Marginal improvement in hemodynamics, her CVP was 12, urine output remains nil. No abdominal distention and lactic acid as well as troponin are stable. As mentioned above review of systems is not obtainable. Current SOFA Score SOFA Score Response (Comments) Value PaO2/FiO2 (mmHg) < 100 4 SaO2 / FIO2 67 - 141 3 Platelets (x10) > 150 0 Bilirubin (mg/dL) < 1.2 0 Almaz Coma Score 6 - 9 3 Level of Hypotension Dopamine > 5 mcq or Epi < 0.1 mcq 3 Creatinine (mg/dL) < 1.2 0 Total 13 Assessment & Plan #1 septic shock with multiorgan system failure. #2 shock liver. Although etiology can be related to sepsis however the patient has been taking Tylenol at home on a daily basis to control her low-grade temperature. #3 COPD, Gold level III on home oxygen. #4 right upper lobe cavity which has been chronic now with air-fluid level representing bleeding. Which explains the patient intermittent hemoptysis. #5 right upper lobe and left lower lobe pneumonia. #6 cardiomyopathy, EF of 25%, etiology is ischemic versus type II. #7 kyphoscoliosis. With poor performance status. #8 coagulopathy, auto anticoagulation. Plan: #1 due to the hypotension, the patient will continue on ketamine drip. #2 would continue with Levophed, vasopressin, dobutamine as added by cardiology , input appreciated. #3 CVP was transfused and the patient current CVP is 12 and we will use CVP sliding scale for fluid management. #4 I have done a bedside echocardiogram which revealed normal respiratory variability in the IVC. I will stop the IV fluids and manage accordingly. #5 I have started the patient on albumin and I will change it to as needed for hypertension only. #6 antibiotics were changed to cover for anaerobic, aerobic, atypicals. Currently the patient is on vancomycin, ertapenem, azithromycin. #7 I will start the patient on Mucomyst protocol for Tylenol overdose. Although the transaminitis related to medications versus hypoperfusion secondary to sepsis, cannot rule out the possibility of Tylenol overdose as she was taking Tylenol at home to control her low-grade fever. #8 continue with heparin subcutaneous. #9 no need to reverse INR although it's 2.0. #10 continue DVT and GI prophylaxis. #11 no tube feedings today. #12 cardiology consult appreciated. #13 potential bronchoscopy was the patient is hemodynamically stable. #14 continue bronchodilators. #15 sputum cultures. #16 case discussed with the family on 2 occasions. The is in favor of not pursue heroic measures. The son who is a police academy program coordinator, from [place] had similar opinion. The other son was on the aggressive side treatment. I have had a long discussion with each one of them separately, I'll be glad to update them altogether in the afternoon today. We'll continue to follow based on the patient's wishes. However, I do believe that given the patient a trial for 72 hours prior to her first would be helpful. The patient quality of life if she survives this multiorgan system failure syndrome would be similar to her condition prior to admission. #17 hemoptysis likely related to right upper lobe cavity, does not appear to be gross hemoptysis. #18 malignancy cannot be ruled out in the right upper lobe. #19 electrolyte replacement. #20 adjust the ventilator to pressure control and to keep minutes volume in the range of 300 - 350 mL per breath. Critical care time spent with this patient was additional 45 minutes to the previous note. Excluding procedures. Consults & Procedures Consultants: Cardiology. Procedures: Central line, a line, but side echo. Data Medications: Current Inpatient Medications Medications (Trade) Dose Ordered Sig/Giovanni Route Start Time Stop Time Status Last Admin Dose Admin Enoxaparin Sodium (Lovenox Inj) 40 mg Q24H SC 05/14/17 18:00 06/13/17 17:59 Future Hold 05/16/17 17:51 40 MG Sodium Chloride 1,000 ml @ 75 mls/hr [id number] IV 05/14/17 12:35 06/13/17 12:34 05/17/17 08:17 75 MLS/HR Acetaminophen (Tylenol Tab) 650 mg Q4H PRN PO 12/11/17 12:45 06/13/17 12:44 Ondansetron HCl (Zofran Inj) 4 mg Q6H PRN IV 05/14/17 12:45 06/13/17 12:44 05/16/17 23:49 4 MG Menthol (Nice Lanette) 1 lanette PRN PRN PO 05/14/17 20:30 06/13/17 20:29 Arformoterol Tartrate (Brovana 15MCG/ 2ML Neb Soln) 15 mcg BIDR INH 05/15/17 20:00 06/14/17 19:59 Future Hold 05/16/17 19:17 15 MCG Budesonide (Pulmicort Respules 0.5MG/ 2ML Neb Soln) 0.5 mg BIDR INH 05/15/17 20:00 06/14/17 19:59 Future Hold 05/16/17 19:18 0.5 MG Escitalopram Oxalate (Lexapro Tab) 5 mg QAM PO 05/17/17 08:00 06/16/17 07:59 05/17/17 08:17 5 MG Nystatin (Mycostatin Susp) 5 ml QID PRN PO 05/16/17 17:15 05/26/17 17:14 Vancomycin HCl (Consult) 1 ea UD PRN N/A 05/16/17 19:45 06/15/17 19:44 Vancomycin HCl 750 mg/Sodium Chloride 265 ml @ 125 mls/hr Q12H IV 05/17/17 08:00 05/24/17 07:59 05/17/17 08:15 125 MLS/HR Ioversol (Optiray 320) 100 ml UD PRN IV 05/17/17 02:00 05/21/17 01:59 Albuterol (Ventolin Hfa Inhaler) 4 puffs Q4R INH 05/17/17 04:00 06/16/17 03:59 05/17/17 11:30 4 PUFFS Ipratropium [place] (Atrovent Hfa Inhaler) 4 puffs Q4R INH 05/17/17 04:00 06/16/17 03:59 05/17/17 11:30 4 PUFFS Ketamine HCl 500 mg/Sodium Chloride 500 ml @ 0 mls/hr Q0M PRN IV 05/17/17 04:15 1/13/18 04:14 05/17/17 05:53 24.6 MLS/HR Norepinephrine Bitartrate 8 mg/ Dextrose 508 ml @ 0 mls/hr Q0M PRN IV 05/17/17 05:40 06/16/17 05:39 05/17/17 12:05 0 MLS/HR Vasopressin 50 units/Sodium Chloride 502.5 ml @ 24.12 mls/ hr [id number] PRN IV 05/17/17 05:40 06/16/17 05:39 05/17/17 06:22 14,472 MLS/HR Azithromycin 500 mg/Dextrose 255 ml @ 125 mls/hr DAILY@0400 IV 05/18/17 04:00 05/23/17 06:03 Thiamine HCl 200 mg/Sodium Chloride 52 ml @ 208 mls/hr QAM IV 05/17/17 09:00 06/16/17 08:59 05/17/17 08:17 208 MLS/HR Methylprednisolone Sodium Succinate 40 mg/Syringe 0.64 ml @ 1.5 mls/min Q12 IV 05/17/17 09:00 06/16/17 08:59 05/17/17 08:15 1.5 MLS/MIN Ascorbic Acid 1500 mg/Sodium Chloride 103 ml @ 206 mls/hr Q6H IV 05/17/17 06:15 05/21/17 00:44 05/17/17 12:02 206 MLS/HR Heparin Sodium (Porcine) (Heparin Sq 5000 Unit/0.5ml) 5,000 unit Q12 SQ 05/17/17 09:00 06/16/17 08:59 05/17/17 08:18 5,000 UNIT Pantoprazole Sodium 40 mg/ Syringe 10 ml @ 5 mls/min DAILY@,21 IV 05/17/17 09:00 06/16/17 08:59 05/17/17 11:20 5 MLS/MIN Imipenem/ Cilastatin Sodium 300 mg/Dextrose 106 ml @ 106 mls/hr Q6H IV 05/17/17 14:00 05/24/17 13:59 Miscellaneous Information (Pharmacy Consult) 1 ea UD PRN N/A 05/17/17 10:00 06/16/17 09:59 Acetylcysteine 2450 mg/Dextrose 512.25 ml @ 125 mls/ hr TODAY@1230 ONCE IV 05/17/17 12:30 05/17/17 16:35 05/17/17 12:02 125 MLS/HR Insulin Aspart (novoLOG ASPART) SLIDING SCALE Q6H SC 05/17/17 12:00 06/16/17 11:59 Glucose (Glucose 40% Gel) 15-30 GRAMS 15 GRAMS... UD PRN PO 05/17/17 10:00 06/16/17 09:59 Glucose (Glucose Chew Tab) 4-8 Tablets 4 Tabl... UD PRN PO 05/17/17 10:00 06/16/17 09:59 Dextrose (Dextrose 50% 50ML Syringe) 25-50ML OF 50% DW IV FOR... UD PRN IV 05/17/17 10:00 06/16/17 09:59 Glucagon (Glucagon Inj) 1 mg UD PRN SQ 05/17/17 10:00 06/16/17 09:59 Dobutamine HCl 250 ml @ 0 mls/hr Q0M IV 05/17/17 10:15 06/16/17 10:14 Albumin Human (Albumin 5%) 12.5 gm Q4 PRN IV 05/17/17 12:00 Aspirin (Ecotrin Tab) 81 mg QAM PO 05/18/17 09:00 06/17/17 08:59 Acetylcysteine 4900 mg/Sodium Chloride 1,024.5 ml @ 62.5 mls/ hr TODAY@1700 ONCE IV 05/17/17 17:00 05/18/17 09:23 Vital Signs: Date Time Temp Pulse Resp B/P (MAP) Pulse Ox O2 Delivery O2 Flow Rate FiO2 05/17/17 13:11 35.0 124 29 94/57 (66) 99 114/48 05/17/17 13:06 36.3 122 29 92/55 (66) 96 113/48 05/17/17 13:01 36.6 124 27 95/52 (64) 95 112/47 05/17/17 13:00 36.6 125 25 (65) 98 113/48 05/17/17 12:56 37.4 121 27 90/51 (62) 98 107/46 05/17/17 12:51 37.4 121 27 79/55 (58) 99 102/42 05/17/17 12:46 37.1 121 26 85/43 (54) 99 98/40 05/17/17 12:41 37.0 121 27 77/46 (54) 99 100/39 05/17/17 12:36 37.3 121 27 73/51 (53) 99 100/38 05/17/17 12:31 37.2 119 28 73/43 (55) 99 102/40 05/17/17 12:30 37.2 120 26 (56) 99 104/40 05/17/17 12:21 37.1 114 21 81/50 (65) 98 112/47 05/17/17 12:16 37.1 116 28 89/57 (71) 98 120/54 05/17/17 12:11 37.0 116 27 103/62 (71) 98 123/54 05/17/17 12:06 37.0 112 27 96/57 (74) 99 124/56 05/17/17 12:01 36.9 110 27 98/61 (74) 96 123/56 05/17/17 12:00 50 05/17/17 12:00 37.0 124 26 94/61 (72) 95 Mechanical Ventilator 50 05/17/17 12:00 36.9 109 28 (74) 100 123/57 05/17/17 12:00 95 Mechanical Ventilator 60 05/17/17 11:56 36.9 108 27 96/58 (74) 98 122/57 05/17/17 11:51 36.6 109 27 97/60 (73) 100 119/57 05/17/17 11:46 36.6 109 28 105/53 (73) 98 119/57 05/17/17 11:41 36.8 108 27 100/62 (70) 99 116/54 05/17/17 11:36 36.8 106 27 90/59 (69) 98 113/52 05/17/17 11:32 50 05/17/17 11:31 36.7 107 27 106/65 (74) 99 120/57 05/17/17 11:30 36.7 106 27 (74) 98 120/57 05/17/17 11:26 36.7 106 26 98/59 (72) 97 118/56 05/17/17 11:21 36.6 106 26 101/65 (72) 98 116/56 12/14/17 11:16 36.6 106 27 103/61 (79) 99 119/57 05/17/17 11:11 36.5 106 26 /59 (72) 97 117/55 05/17/17 11:06 36.5 107 28 106/64 (72) 98 117/55 05/17/17 11:01 36.4 108 29 103/64 (72) 99 118/56 05/17/17 11:00 36.3 103 27 /61 (72) 100 115/56 05/17/17 11:00 36.4 106 26 (72) 98 117/55 05/17/17 10:41 36.3 103 27 /61 (72) 100 115/56 05/17/17 10:36 36.2 106 27 91/64 (70) 100 112/55 05/17/17 10:31 36.2 104 27 94/58 (71) 99 111/55 05/17/17 10:30 36.2 101 26 (71) 100 109/56 05/17/17 10:26 36.2 102 28 106/65 (71) 100 113/55 05/17/17 10:21 36.1 105 26 99/60 (70) 100 113/55 05/17/17 10:16 36.1 103 26 95/68 (71) 87 114/55 05/17/17 10:15 36.1 104 27 (71) 87 114/55 05/17/17 10:11 36.0 106 27 90/73 (72) 94 113/56 05/17/17 10:06 36.0 106 28 /61 (72) 100 115/57 05/17/17 10:01 35.9 107 26 94/69 (70) 83 111/55 05/17/17 10:00 35.9 106 26 (70) 74 110/54 05/17/17 09:26 35.6 100 27 /61 (62) 94/49 05/17/17 09:22 35.6 102 26 30/26 (59) 77 89/47 05/17/17 09:20 50 05/17/17 09:16 33.3 106 21 /51 (65) 82 72/46 05/17/17 09:11 35.6 104 22 /53 (66) 75 87/45 05/17/17 09:10 60 05/17/17 09:01 35.5 103 20 /50 (57) 71 86/45 05/17/17 09:00 35.6 103 21 (57) 61 87/45 05/17/17 08:56 35.5 98 18 78/55 (55) 96 84/44 05/17/17 08:51 35.5 97 23 /52 (61) 82/43 05/17/17 08:46 35.5 95 21 77/57 (66) 97 82/44 05/17/17 08:41 35.5 96 24 /52 (54) 80/43 05/17/17 08:37 35.4 97 22 54/17 (53) 91 79/42 05/17/17 08:31 35.4 94 25 /51 (47) 92 69/37 05/17/17 08:30 35.4 95 22 (47) 81 70/37 05/17/17 08:26 35.4 94 22 65/51 (55) 100 05/17/17 08:25 35.4 95 23 /50 (56) 96 05/17/17 08:16 35.3 93 23 22/ (19) 95 70/38 05/17/17 08:11 35.3 91 22 /50 (48) 93 72/38 05/17/17 08:06 35.3 92 22 /50 (55) 88 71/37 05/17/17 08:01 35.3 92 22 /17 (18) 90 73/39 05/17/17 08:00 Mechanical Ventilator 60 05/17/17 08:00 35.3 94 23 (50) 89 74/39 05/17/17 07:00 35.1 92 22 100 05/17/17 06:12 60 05/17/17 04:09 60 05/17/17 02:41 100 24 97/47 (64) 94 4.0 70/47 (55) 05/17/17 02:30 35.1 05/16/17 23:59 Nasal Cannula 3.0 05/16/17 23:37 35.3 104 24 121/70 (87) 96 Nasal Cannula 3.0 05/16/17 20:00 Nasal Cannula 3.0 05/16/17 19:36 36.4 125 26 108/74 (85) 96 Nasal Cannula 3.0 05/16/17 19:21 118 18 94 Nasal Cannula 3.0 05/16/17 18:25 36.3 130 26 92 3.0 05/16/17 18:16 130 26 92/67 (75) 92 Nasal Cannula 3.0 05/16/17 18:14 36.3 130 26 83/61 (68) 92 Nasal Cannula 3.0 05/16/17 17:44 95 Nasal Cannula 2.0 05/16/17 16:00 95 Nasal Cannula 2.0 05/16/17 15:17 36.7 125 22 119/79 (92) 95 Laboratory Results: Last 24 Hours Test 05/17/17 00:33 05/17/17 01:08 05/17/17 02:30 05/17/17 03:38 White Blood Count 17.28 K/uL Red Blood Count 4.12 M/uL Hemoglobin 10.9 g/dL Hematocrit 34.8 % Mean Corpuscular Volume 84.5 fL Mean Corpuscular Hemoglobin 26.5 pg Mean Corpuscular Hemoglobin Concent 31.3 g/dl Platelet Count 424 K/uL Mean Platelet Volume 9.3 fL Neutrophils (%) (Auto) 87.0 % Lymphocytes (%) (Auto) 1.9 % Monocytes (%) (Auto) 10.2 % Eosinophils (%) (Auto) 0.0 % Basophils (%) (Auto) 0.1 % Neutrophils # (Auto) 15.04 K/uL Lymphocytes # (Auto) 0.33 K/uL Monocytes # (Auto) 1.76 K/uL Eosinophils # (Auto) 0.00 K/uL Basophils # (Auto) 0.01 K/uL RDW Standard Deviation 48.7 fL RDW Coefficient of Variation 15.7 % Immature Granulocyte % (Auto) 0.8 % Immature Granulocyte # (Auto) 0.14 K/uL Nucleated RBC Absolute Count (auto) 0.02 K/uL Nucleated Red Blood Cells % 0.1 % Prothrombin Time 16.7 SECONDS Prothromb Time International Ratio 1.6 Activated Partial Thromboplast Time 33.0 SECONDS Partial Thromboplastin Ratio 1.3 Sodium Level 137 mmol/L Potassium Level 5.0 mmol/L Chloride Level 109 mmol/L Carbon Dioxide Level 21 mmol/L Anion Gap 7.0 mmol/L Blood Urea Nitrogen 18 mg/dl Creatinine 0.72 mg/dl Est Creatinine Clear Calc Drug Dose 51.6 ml/min Estimated GFR () 94.3 Estimated GFR (Non- 81.3 BUN/Creatinine Ratio 24.5 Random Glucose 169 mg/dl Calcium Level 7.6 mg/dl Total Bilirubin 0.6 mg/dl Aspartate Amino Transf (AST/SGOT) 1658 U/L Alanine Aminotransferase (ALT/SGPT) 1079 U/L Alkaline Phosphatase 116 U/L Total Protein 6.0 gm/dl Albumin 2.2 gm/dl Globulin 3.8 gm/dl Albumin/Globulin Ratio 0.6 Lactic Acid Level 4.0 mmol/L Procalcitonin 0.88 ng/ml Fibrinogen 424 mg/dl Fibrin Degradation Products <10 mcg/ml Ammonia 65.0 umol/L Bedside Hemoglobin 9.2 g/dl Bedside Hematocrit 27 % Bedside Blood Gas pH (LAB) 7.03 Bedside Blood Gas pCO2 (LAB) 69 mmHg Bedside Blood Gas pO2 (LAB) 47 mmHg Bedside Blood Gas HCO3 (LAB) 18 meq/L Bedside Blood Gas Total CO2 20 mEq/l Bedside Blood Gas Base Excess (LAB) -12.0 meq/L Bedside Blood Gas O2 Saturation 62.0 % Bedside Sodium 138 mEq/L Bedside Potassium 5.0 mEq/L Test 05/17/17 04:41 05/17/17 06:22 05/17/17 07:52 05/17/17 09:18 White Blood Count 20.26 K/uL Red Blood Count 3.47 M/uL Hemoglobin 9.0 g/dL Hematocrit 30.0 % Mean Corpuscular Volume 86.5 fL Mean Corpuscular Hemoglobin 25.9 pg Mean Corpuscular Hemoglobin Concent 30.0 g/dl RDW Standard Deviation 51.2 fL RDW Coefficient of Variation 16.1 % Platelet Count 283 K/uL Mean Platelet Volume 9.7 fL Prothrombin Time 21.2 SECONDS Prothromb Time International Ratio 2.0 Phosphorus Level 6.0 mg/dl Magnesium Level 2.0 mg/dl Total Creatine Kinase 92 U/L Creatine Kinase MB 7.8 ng/ml Creatine Kinase MB Ratio 8.5 Troponin I 2.150 ng/ml Acetaminophen Level 6 ug/ml Hepatitis B Surface Antigen NEG Hepatitis C Antibody NEG Bedside Glucose 162 mg/dl Sodium Level 139 mmol/L Potassium Level 5.2 mmol/L Chloride Level 110 mmol/L Carbon Dioxide Level 19 mmol/L Anion Gap 11.0 mmol/L Blood Urea Nitrogen 20 mg/dl Creatinine 0.91 mg/dl Est Creatinine Clear Calc Drug Dose 40.8 ml/min Estimated GFR () 71.0 Estimated GFR (Non- 61.3 BUN/Creatinine Ratio 22.0 Random Glucose 198 mg/dl Calcium Level 6.7 mg/dl Total Bilirubin 1.0 mg/dl Aspartate Amino Transf (AST/SGOT) 4150 U/L Alanine Aminotransferase (ALT/SGPT) 2032 U/L Alkaline Phosphatase 152 U/L Total Protein 4.8 gm/dl Albumin 2.3 gm/dl Globulin 2.5 gm/dl Albumin/Globulin Ratio 0.9 Blood Gas Sample Site Art Line Bedside Blood Gas pH (LAB) 7.14 Bedside Blood Gas pCO2 (LAB) 52 mmHg Bedside Blood Gas pO2 (LAB) 214 mmHg Bedside Blood Gas HCO3 (LAB) 18 meq/L Bedside Blood Gas Total CO2 19 mEq/l Bedside Blood Gas Base Excess (LAB) -11.0 meq/L Bedside Blood Gas O2 Saturation 99.0 % Talon Test NA Oxygen Delivery Device Ventilator Bedside Oxygen Rate (breaths/min) 20 Blood Gas Minute Ventilation 9.2 Bedside FiO2 60 % Blood Gas PEEP 8 Test 05/17/17 11:21 05/17/17 12:00 05/17/17 12:37 Bedside Glucose (other) 196 mg/dl
--- NOTE | 2017-05-17 13:50 | CARDIOLOGY CONSULTATION ---
DATE OF CONSULTATION: 05/17/2017 TIME: 12:24 p.m. CONSULTING PHYSICIAN: Dr. Richard. REASON FOR CONSULTATION: Cardiomyopathy. HISTORY OF PRESENT ILLNESS: Mr. Collins is a 77-year-old female who presented to [facility] on 05/14/2017 with a chief complaint of generalized weakness. She has a history of COPD, on chronic supplemental oxygen due to chronic hypoxia. She is unable to provide any history as she is currently sedated and intubated on mechanical ventilation. History was obtained by talking with nursing staff, Dr. Richard, reviewing charts, and also speaking with the patient's and her son, Severiano. Apparently a few days prior to presentation, she had been feeling weak, tired/fatigue, decreased appetite, and overall just did not feel well. Her son reports that she had mild fevers and she took no more than 5 Tylenol in total. She had been experiencing some hemoptysis months ago, but this has since resolved. She had not complained of any chest pain and there was no witnessed syncope. There is no known palpitations. She was admitted to [facility] and was being treated for sepsis due to pneumonia. She was also found to be hyponatremic and was thought to be hypovolemic and she was started on normal saline as her sodium level was as low as in the 128. Chest x-rays were interpreted as infiltrates and she underwent a CT scan today and there was a noted interval increase in the consolidative and cavitary findings compared to prior exam in 2009. There was also severe emphysema per radiology as well as bronchitis consistent with COPD. Her breathing reportedly worsened and she underwent intubation early this morning. She was also hypotensive. For this, she was started on the Levophed and vasopressin with some improvement in her blood pressure. An echocardiogram was performed this morning, which demonstrated a severely reduced systolic function with an EF of 25%-30%. The basal wall segments appeared to have normal wall motion. Otherwise, the left ventricle appeared mostly akinetic. The right ventricle is mildly dilated with at least moderately reduced systolic function with once again the basal portion pj more normally and otherwise hypo to akinetic. There was mild to moderate mitral regurgitation and moderate to severe tricuspid regurgitation. Her RVSP was 44 mmHg. Following the echocardiogram, cardiology consultation was requested. REVIEW OF SYSTEMS: As above and otherwise unobtainable due to the patient's current sedated state, on mechanical ventilation. PAST MEDICAL HISTORY: 1. Emphysema/COPD, on chronic supplemental oxygen. 2. Scoliosis. 3. Anxiety. 4. Cerebral aneurysm per chart. 5. History of hemoptysis. 6. Eczema. CURRENT MEDICATIONS: Include, 1. Levophed. 2. Vasopressin. 3. Imipenem. 4. Azithromycin. 5. Acetylcysteine. 6. Methylprednisolone 40 mg IV q. 12 hours. 7. Protonix 40 mg IV b.i.d. 8. Lexapro 5 mg daily. 9. Vancomycin IV. 10. Albumin 12.5 grams IV q. 4 hours. 11. Ketamine IV. ALLERGIES: NITROGLYCERIN AND PENICILLIN. SOCIAL HISTORY: She is , lives with her and son, Severiano. She has another son, who also presented at the bedside after my initial visit, who came in from [place]. She is listed as a former smoker. FAMILY HISTORY: There is a documented cancer, diabetes, heart disease and lung disease. PHYSICAL EXAMINATION: VITAL SIGNS: Temperature 36.3 degrees rectally, heart rate 103 beats per minute, respiratory rate 27, blood pressure 115/56 mmHg, and oxygen saturation 100% on mechanical ventilation. I's and O's positive 2.7 liters yesterday. GENERAL: She appears in no acute distress. She is sedated, but she did open eyes upon verbal stimulation. NECK: There is a right-sided central venous catheter in place. Left carotid pulse is 2+. CARDIAC EXAMINATION: PMI was nonpalpable. There was no ventricular heave. Regular, but tachycardic in the low 100s. Normal S1 and S2. There were no audible murmurs, rubs or gallops. LUNGS: Clear to auscultation bilaterally on anterior auscultation. ABDOMEN: Soft, nontender, and nondistended. EXTREMITIES: No cyanosis or edema. Distal pulses were not palpable, but the left femoral pulse was 2+. Right femoral artery had an arterial line in place. There was no obvious hematoma. No palpable cords. PSYCHIATRIC: Could not be evaluated. LABORATORY DATA: Sodium 139, potassium 5.2, BUN 20, and creatinine 0.91 up from 0.49 on presentation. Magnesium 2. AST 4150, ALT 2032, and alkaline phosphatase 152. Troponin initially negative x2 and then most recent this morning was 2.15. Albumin 2.3. WBC 20.26, hemoglobin 9, and platelets 283. INR initially 1.2, now it is 2. Acetaminophen level is 6. Influenza A and B were negative. Chest x-ray and CT scan reports reviewed as noted above. Chest x-ray performed on 05/17/2017 at 07:00 a.m. personally reviewed. Infiltrate noted. Echocardiogram images were personally reviewed as noted above. ECG upon presentation on 05/14/2017 at 11:30 a.m. demonstrated sinus rhythm at 93 beats per minute. PAC. Repeat ECG on 05/16/2017 at 15:50 demonstrated sinus tachycardia at 139 beats per minute. PACs. Repeat ECG on 05/17/2017 at 08:50 a.m. demonstrated sinus rhythm at 96 beats per minute. T-wave inversion in the anterolateral leads. Low voltage. Telemetry personally reviewed. No sustained arrhythmias. She did have what appeared to be ventricular triplets and PVCs, but none more recently. ASSESSMENT AND PLAN: 1. Cardiomyopathy: Etiology uncertain. This could represent acute illness cardiomyopathy, myocarditis, but also cannot rule out ischemic heart disease. Given her presentation, would favor acute illness cardiomyopathy or myocarditis as the most likely etiologies. She did not present with acute coronary syndrome, but rather low grade fevers and just overall not feeling well. Also, wall motion distribution is less suggestive of coronary artery disease as the etiology unless she has multivessel/triple-vessel disease. Given her hypotension and need for pressor support, as well as what appears to be shock liver and anuria according to the nurses, inotropic support is recommended. Dobutamine 2.5 mcg per kilogram per minute was recommended and initiated. If tolerating well, can increase to 5 mcg per kilogram per minute, 2 hours following. Urgent cardiac catheterization is not recommended at this time. Hopefully, her LV systolic function improves with time. Usual medical therapy can be instituted if she improves and no longer requires pressure support in the future. TSH will be added on to her labs. 2. Non-ST elevation myocardial infarction: She does have elevated troponins, which could represent a non-ST elevation myocardial infarction from demand ischemia, but also cannot rule out myocarditis. She did not present with acute coronary syndrome and does not have ST elevations. Recommend medical therapy. She is not a candidate for beta blockers or BYRON inhibitors at this time given her hypotension requiring pressor support. If no contraindications, would recommend aspirin 81 mg daily. Statin therapy is contraindicated currently given her a shock liver. 3. Acute on chronic respiratory failure: As per critical care team. She is currently on mechanical ventilation. 4. Pneumonia/sepsis: She was hypotensive and now blood pressure is better on pressor support and dobutamine. Treatment as per primary service. 5. Liver failure: She has an INR of 2 despite no Coumadin and also has significantly elevated transaminase levels. This could be secondary to poor perfusion from her cardiomyopathy as well as the fact that she has been hypotensive. Hopefully, this improves with inotropic support. 6. Anuria: Suspect that she has some acute kidney injury. Her creatinine is still within the normal range, but it has doubled since the presentation and is no longer making urine according to the nursing staff. Monitor closely. Would hold off on any further fluid administration at this time given her cardiac status and the fact that her blood pressure has normalized, but also would not diurese. Hopefully, she starts to make urine with better perfusion following inotropic support. 7. Disposition: Poor prognosis as she has baseline chronic pulmonary issues with now acute liver injury, kidney injury, and acute cardiomyopathy with hypotension. Family is aware of her poor prognosis. She is currently full code. Any questions were answered. Plan of care/patient care has been discussed with nursing staff as well as critical care team, Dr. Richard. She was reevaluated approximately 2 hours after the initiation of dobutamine. She is tolerating it well without arrhythmia. Her blood pressure appeared to have improved. She is still not making urine, but it is still early following the initiation of dobutamine. Can increase to 5 mcg per kilogram per minute and hopefully at some point, try to wean off of her other pressor support. A total of 60-minute critical care time was spent with reviewing chart/studies, coordinating care, speaking with family members via telephone, and managing her cardiomyopathy/hypotension with the initiation of inotropic support. Thank you for allowing me to participate in the care of Ms. Collins. Sincerely,
[2017-05-17] MEDS ORDERED: IMIPENEM/CILASTATIN IV 300 MG in DEXTROSE 5% 100ML 100 ML IV SCH (14:00)
[2017-05-17] MEDS: INSULIN ASPART 100 UNITS/ML 3 ML PEN SC SCH ×2 (14:04→18:30)
--- NOTE | 2017-05-17 15:24 | Pharmacy Progress Note ---
Pharmacy Abx Dose Short Note Date of Service May 17, 2017. Assessment & Plan Assessment 77 year old female receiving VANCOMCYIN/IMIPENEM/AZITHROMYCIN for treatment of pneumonia Plan Vancomycin * patient in MODS will get a vanc level tonight @2000 and assess redosing at that time. Pharmacy will continue to follow and will adjust dose/frequency as necessary. Thank you.
[2017-05-17 15:26] LABS: BUN/CREATININE RATIO 16.2 (10-20); CALCIUM 6.6 mg/dl (8.5-10.1); CREATININE 1.38 mg/dl (0.60-1.20); MAGNESIUM 1.9 mg/dl (1.8-2.4); POTASSIUM 5.2 mmol/L (3.5-5.1)
[2017-05-17 15:43] LABS: ALB/GLOB RATIO 0.9 (0.9-2); PHOSPHORUS 5.5 mg/dl (2.5-4.9); THYROID STIMULATING HORMONE 1.41 uIu/ml (0.300-4.500)
--- NOTE | 2017-05-17 16:04 | Hospitalist Progress Note ---
Hospitalist Progress Note Date of Service May 17, 2017. (Daksha Pino, RAJESH) Subjective Pt evaluation today including: conversation w/ family, physical exam, chart review, lab review, review of studies, review of inpatient medication list Patient seen and evaluated. Patient decompensated overnight and was transferred to the ICU with pressor support and intubation. Patient currently intubated and concern for ability to wean off given significant emphysema. Son Chilo at bedside. Discussed current situation and asked if he had any specific questions. Palliative care is on board. She is sedated and no signs of discomfort. Plan to monitor over next 1-2 days for improvement and further decisions on course of action pending response. Additional Comments: ROS unobtainable due to intubation status. (Daksha Pino, RAJESH) Medications Current Inpatient Medications Medications (Trade) Dose Ordered Sig/Giovanni Route Start Time Stop Time Status Last Admin Dose Admin Enoxaparin Sodium (Lovenox Inj) 40 mg Q24H SC 05/14/17 18:00 06/13/17 17:59 Future Hold 05/16/17 17:51 40 MG Sodium Chloride 1,000 ml @ 75 mls/hr [id number] IV 05/14/17 12:35 06/13/17 12:34 05/17/17 08:17 75 MLS/HR Acetaminophen (Tylenol Tab) 650 mg Q4H PRN PO 05/14/17 12:45 06/13/17 12:44 Ondansetron HCl (Zofran Inj) 4 mg Q6H PRN IV 05/14/17 12:45 06/13/17 12:44 05/16/17 23:49 4 MG Menthol (Nice Lanette) 1 lanette PRN PRN PO 05/14/17 20:30 06/13/17 20:29 Arformoterol Tartrate (Brovana 15MCG/ 2ML Neb Soln) 15 mcg BIDR INH 05/15/17 20:00 06/14/17 19:59 Future Hold 05/16/17 19:17 15 MCG Budesonide (Pulmicort Respules 0.5MG/ 2ML Neb Soln) 0.5 mg BIDR INH 05/15/17 20:00 06/14/17 19:59 Future Hold 05/16/17 19:18 0.5 MG Escitalopram Oxalate (Lexapro Tab) 5 mg QAM PO 05/17/17 08:00 06/16/17 07:59 05/17/17 08:17 5 MG Nystatin (Mycostatin Susp) 5 ml QID PRN PO 05/16/17 17:15 05/26/17 17:14 Vancomycin HCl (Consult) 1 ea UD PRN N/A 05/16/17 19:45 06/15/17 19:44 Ioversol (Optiray 320) 100 ml UD PRN IV 05/17/17 02:00 05/21/17 01:59 Albuterol (Ventolin Hfa Inhaler) 4 puffs Q4R INH 05/17/17 04:00 06/16/17 03:59 05/17/17 15:25 4 PUFFS Ipratropium Hollis (Atrovent Hfa Inhaler) 4 puffs Q4R INH 05/17/17 04:00 06/16/17 03:59 05/17/17 15:25 4 PUFFS Ketamine HCl 500 mg/Sodium Chloride 500 ml @ 0 mls/hr Q0M PRN IV 05/17/17 04:15 06/16/17 04:14 05/17/17 05:53 24.6 MLS/HR Norepinephrine Bitartrate 8 mg/ Dextrose 508 ml @ 0 mls/hr Q0M PRN IV 05/17/17 05:40 06/16/17 05:39 05/17/17 12:05 0 MLS/HR Vasopressin 50 units/Sodium Chloride 502.5 ml @ 24.12 mls/ hr [id number] PRN IV 05/17/17 05:40 06/16/17 05:39 05/17/17 06:22 14,472 MLS/HR Azithromycin 500 mg/Dextrose 255 ml @ 125 mls/hr DAILY@0400 IV 05/18/17 04:00 05/23/17 06:03 Thiamine HCl 200 mg/Sodium Chloride 52 ml @ 208 mls/hr QAM IV 05/17/17 09:00 06/16/17 08:59 05/17/17 08:17 208 MLS/HR Methylprednisolone Sodium Succinate 40 mg/Syringe 0.64 ml @ 1.5 mls/min Q12 IV 05/17/17 09:00 06/16/17 08:59 05/17/17 08:15 1.5 MLS/MIN Ascorbic Acid 1500 mg/Sodium Chloride 103 ml @ 206 mls/hr Q6H IV 05/17/17 06:15 05/21/17 00:44 05/17/17 12:02 206 MLS/HR Heparin Sodium (Porcine) (Heparin Sq 5000 Unit/0.5ml) 5,000 unit Q12 SQ 05/17/17 09:00 06/16/17 08:59 05/17/17 08:18 5,000 UNIT Pantoprazole Sodium 40 mg/ Syringe 10 ml @ 5 mls/min DAILY@09,21 IV 05/17/17 09:00 06/16/17 08:59 05/17/17 11:20 5 MLS/MIN Imipenem/ Cilastatin Sodium 300 mg/Dextrose 106 ml @ 106 mls/hr Q6H IV 05/17/17 14:00 05/24/17 13:59 05/17/17 14:04 106 MLS/HR Miscellaneous Information (Pharmacy Consult) 1 ea UD PRN N/A 05/17/17 10:00 06/16/17 09:59 Acetylcysteine 2450 mg/Dextrose 512.25 ml @ 125 mls/ hr TODAY@1230 ONCE IV 05/17/17 12:30 05/17/17 16:35 05/17/17 12:02 125 MLS/HR Insulin Aspart (novoLOG ASPART) SLIDING SCALE Q6H SC 05/17/17 12:00 06/16/17 11:59 05/17/17 14:04 2 UNITS Glucose (Glucose 40% Gel) 15-30 GRAMS 15 GRAMS... UD PRN PO 05/17/17 10:00 06/16/17 09:59 Glucose (Glucose Chew Tab) 4-8 Tablets 4 Tabl... UD PRN PO 05/17/17 10:00 06/16/17 09:59 Dextrose (Dextrose 50% 50ML Syringe) 25-50ML OF 50% DW IV FOR... UD PRN IV 05/17/17 10:00 06/16/17 09:59 Glucagon (Glucagon Inj) 1 mg UD PRN SQ 05/17/17 10:00 06/16/17 09:59 Dobutamine HCl 250 ml @ 0 mls/hr Q0M IV 05/17/17 10:15 06/16/17 10:14 Albumin Human (Albumin 5%) 12.5 gm Q4 PRN IV 05/17/17 12:00 Acetylcysteine 4900 mg/Sodium Chloride 1,024.5 ml @ 62.5 mls/ hr TODAY@1700 ONCE IV 05/17/17 17:00 05/18/17 09:23 Aspirin (Aspirin Chew) 81 mg QAM PO 05/18/17 09:00 06/17/17 08:59 (Daksha Pino, HAYDEEC) Objective Vital Signs Date Time Temp Pulse Resp B/P (MAP) Pulse Ox O2 Delivery O2 Flow Rate FiO2 05/17/17 14:30 50 05/17/17 13:11 35.0 124 29 94/57 (66) 99 114/48 05/17/17 13:06 36.3 122 29 92/55 (66) 96 113/48 05/17/17 13:01 36.6 124 27 95/52 (64) 95 112/47 05/17/17 13:00 36.6 125 25 (65) 98 113/48 05/17/17 12:56 37.4 121 27 90/51 (62) 98 107/46 05/17/17 12:51 37.4 121 27 79/55 (58) 99 102/42 05/17/17 12:46 37.1 121 26 85/43 (54) 99 98/40 05/17/17 12:41 37.0 121 27 77/46 (54) 99 100/39 05/17/17 12:36 37.3 121 27 73/51 (53) 99 100/38 05/17/17 12:31 37.2 119 28 73/43 (55) 99 102/40 05/17/17 12:30 37.2 120 26 (56) 99 104/40 05/17/17 12:21 37.1 114 21 81/50 (65) 98 112/47 05/17/17 12:16 37.1 116 28 89/57 (71) 98 120/54 05/17/17 12:11 37.0 116 27 103/62 (71) 98 123/54 05/17/17 12:06 37.0 112 27 96/57 (74) 99 124/56 05/17/17 12:01 36.9 110 27 98/61 (74) 96 123/56 05/17/17 12:00 50 05/17/17 12:00 37.0 124 26 94/61 (72) 95 Mechanical Ventilator 50 05/17/17 12:00 36.9 109 28 (74) 100 123/57 05/17/17 12:00 95 Mechanical Ventilator 60 05/17/17 11:56 36.9 108 27 96/58 (74) 98 122/57 05/17/17 11:51 36.6 109 27 97/60 (73) 100 119/57 05/17/17 11:46 36.6 109 28 105/53 (73) 98 119/57 05/17/17 11:41 36.8 108 27 100/62 (70) 99 116/54 05/17/17 11:36 36.8 106 27 90/59 (69) 98 113/52 05/17/17 11:32 50 05/17/17 11:31 36.7 107 27 106/65 (74) 99 120/57 05/17/17 11:30 36.7 106 27 (74) 98 120/57 05/17/17 11:26 36.7 106 26 98/59 (72) 97 118/56 05/17/17 11:21 36.6 106 26 101/65 (72) 98 116/56 05/17/17 11:16 36.6 106 27 103/61 (79) 99 119/57 05/17/17 11:11 36.5 106 26 /59 (72) 97 117/55 05/17/17 11:06 36.5 107 28 106/64 (72) 98 117/55 05/17/17 11:01 36.4 108 29 103/64 (72) 99 118/56 05/17/17 11:00 36.3 103 27 /61 (72) 100 115/56 05/17/17 11:00 36.4 106 26 (72) 98 117/55 05/17/17 10:41 36.3 103 27 /61 (72) 100 115/56 05/17/17 10:36 36.2 106 27 91/64 (70) 100 112/55 05/17/17 10:31 36.2 104 27 94/58 (71) 99 111/55 05/17/17 10:30 36.2 101 26 (71) 100 109/56 05/17/17 10:26 36.2 102 28 106/65 (71) 100 113/55 05/17/17 10:21 36.1 105 26 99/60 (70) 100 113/55 05/17/17 10:16 36.1 103 26 95/68 (71) 87 114/55 05/17/17 10:15 36.1 104 27 (71) 87 114/55 05/17/17 10:11 36.0 106 27 90/73 (72) 94 113/56 05/17/17 10:06 36.0 106 28 /61 (72) 100 115/57 05/17/17 10:01 35.9 107 26 94/69 (70) 83 111/55 05/17/17 10:00 35.9 106 26 (70) 74 110/54 05/17/17 09:26 35.6 100 27 /61 (62) 94/49 05/17/17 09:22 35.6 102 26 30/26 (59) 77 89/47 05/17/17 09:20 50 05/17/17 09:16 33.3 106 21 /51 (65) 82 72/46 05/17/17 09:11 35.6 104 22 /53 (66) 75 87/45 05/17/17 09:10 60 05/17/17 09:01 35.5 103 20 /50 (57) 71 86/45 05/17/17 09:00 35.6 103 21 (57) 61 87/45 05/17/17 08:56 35.5 98 18 78/55 (55) 96 84/44 05/17/17 08:51 35.5 97 23 /52 (61) 82/43 05/17/17 08:46 35.5 95 21 77/57 (66) 97 82/44 05/17/17 08:41 35.5 96 24 /52 (54) 80/43 05/17/17 08:37 35.4 97 22 54/17 (53) 91 79/42 05/17/17 08:31 35.4 94 25 /51 (47) 92 69/37 05/17/17 08:30 35.4 95 22 (47) 81 70/37 05/17/17 08:26 35.4 94 22 65/51 (55) 100 05/17/17 08:25 35.4 95 23 /50 (56) 96 05/17/17 08:16 35.3 93 23 22/ (19) 95 70/38 05/17/17 08:11 35.3 91 22 /50 (48) 93 72/38 05/17/17 08:06 35.3 92 22 /50 (55) 88 71/37 05/17/17 08:01 35.3 92 22 /17 (18) 90 73/39 05/17/17 08:00 Mechanical Ventilator 60 05/17/17 08:00 35.3 94 23 (50) 89 74/39 05/17/17 07:00 35.1 92 22 100 05/17/17 06:12 60 05/17/17 04:09 60 05/17/17 02:41 100 24 97/47 (64) 94 4.0 70/47 (55) 05/17/17 02:30 35.1 05/16/17 23:59 Nasal Cannula 3.0 05/16/17 23:37 35.3 104 24 121/70 (87) 96 Nasal Cannula 3.0 05/16/17 20:00 Nasal Cannula 3.0 05/16/17 19:36 36.4 125 26 108/74 (85) 96 Nasal Cannula 3.0 05/16/17 19:21 118 18 94 Nasal Cannula 3.0 05/16/17 18:25 36.3 130 26 92 3.0 05/16/17 18:16 130 26 92/67 (75) 92 Nasal Cannula 3.0 05/16/17 18:14 36.3 130 26 83/61 (68) 92 Nasal Cannula 3.0 05/16/17 17:44 95 Nasal Cannula 2.0 05/16/17 16:00 95 Nasal Cannula 2.0 (Daksha Pino, PA-C) Physical Exam General Appearance: WD/WN, no apparent distress Eyes: sclerae normal Neck: supple, no JVD, trachea midline Respiratory/Chest: + pertinent finding (good airflow with ventilatory support) Cardiovascular: + tachycardia Abdomen: normal bowel sounds, non tender, soft Extremities: no pedal edema, + pertinent finding (extremities warm to touch) Neurologic/Psychiatric: + pertinent finding (unresponsive - intubated) Skin: warm/dry (Daksha Pino PA-C) Laboratory Results Last 24 Hours Test 05/17/17 00:33 05/17/17 01:08 05/17/17 02:30 05/17/17 03:38 White Blood Count 17.28 K/uL Red Blood Count 4.12 M/uL Hemoglobin 10.9 g/dL Hematocrit 34.8 % Mean Corpuscular Volume 84.5 fL Mean Corpuscular Hemoglobin 26.5 pg Mean Corpuscular Hemoglobin Concent 31.3 g/dl Platelet Count 424 K/uL Mean Platelet Volume 9.3 fL Neutrophils (%) (Auto) 87.0 % Lymphocytes (%) (Auto) 1.9 % Monocytes (%) (Auto) 10.2 % Eosinophils (%) (Auto) 0.0 % Basophils (%) (Auto) 0.1 % Neutrophils # (Auto) 15.04 K/uL Lymphocytes # (Auto) 0.33 K/uL Monocytes # (Auto) 1.76 K/uL Eosinophils # (Auto) 0.00 K/uL Basophils # (Auto) 0.01 K/uL RDW Standard Deviation 48.7 fL RDW Coefficient of Variation 15.7 % Immature Granulocyte % (Auto) 0.8 % Immature Granulocyte # (Auto) 0.14 K/uL Nucleated RBC Absolute Count (auto) 0.02 K/uL Nucleated Red Blood Cells % 0.1 % Prothrombin Time 16.7 SECONDS Prothromb Time International Ratio 1.6 Activated Partial Thromboplast Time 33.0 SECONDS Partial Thromboplastin Ratio 1.3 Sodium Level 137 mmol/L Potassium Level 5.0 mmol/L Chloride Level 109 mmol/L Carbon Dioxide Level 21 mmol/L Anion Gap 7.0 mmol/L Blood Urea Nitrogen 18 mg/dl Creatinine 0.72 mg/dl Est Creatinine Clear Calc Drug Dose 51.6 ml/min Estimated GFR () 94.3 Estimated GFR (Non- 81.3 BUN/Creatinine Ratio 24.5 Random Glucose 169 mg/dl Calcium Level 7.6 mg/dl Total Bilirubin 0.6 mg/dl Aspartate Amino Transf (AST/SGOT) 1658 U/L Alanine Aminotransferase (ALT/SGPT) 1079 U/L Alkaline Phosphatase 116 U/L Total Protein 6.0 gm/dl Albumin 2.2 gm/dl Globulin 3.8 gm/dl Albumin/Globulin Ratio 0.6 Lactic Acid Level 4.0 mmol/L Procalcitonin 0.88 ng/ml Fibrinogen 424 mg/dl Fibrin Degradation Products <10 mcg/ml Ammonia 65.0 umol/L Bedside Hemoglobin 9.2 g/dl Bedside Hematocrit 27 % Bedside Blood Gas pH (LAB) 7.03 Bedside Blood Gas pCO2 (LAB) 69 mmHg Bedside Blood Gas pO2 (LAB) 47 mmHg Bedside Blood Gas HCO3 (LAB) 18 meq/L Bedside Blood Gas Total CO2 20 mEq/l Bedside Blood Gas Base Excess (LAB) -12.0 meq/L Bedside Blood Gas O2 Saturation 62.0 % Bedside Sodium 138 mEq/L Bedside Potassium 5.0 mEq/L Test 05/17/17 04:41 05/17/17 06:22 05/17/17 07:52 05/17/17 09:18 White Blood Count 20.26 K/uL Red Blood Count 3.47 M/uL Hemoglobin 9.0 g/dL Hematocrit 30.0 % Mean Corpuscular Volume 86.5 fL Mean Corpuscular Hemoglobin 25.9 pg Mean Corpuscular Hemoglobin Concent 30.0 g/dl RDW Standard Deviation 51.2 fL RDW Coefficient of Variation 16.1 % Platelet Count 283 K/uL Mean Platelet Volume 9.7 fL Prothrombin Time 21.2 SECONDS Prothromb Time International Ratio 2.0 Phosphorus Level 6.0 mg/dl Magnesium Level 2.0 mg/dl Total Creatine Kinase 92 U/L Creatine Kinase MB 7.8 ng/ml Creatine Kinase MB Ratio 8.5 Troponin I 2.150 ng/ml Acetaminophen Level 6 ug/ml Hepatitis B Surface Antigen NEG Hepatitis C Antibody NEG Bedside Glucose 162 mg/dl Sodium Level 139 mmol/L Potassium Level 5.2 mmol/L Chloride Level 110 mmol/L Carbon Dioxide Level 19 mmol/L Anion Gap 11.0 mmol/L Blood Urea Nitrogen 20 mg/dl Creatinine 0.91 mg/dl Est Creatinine Clear Calc Drug Dose 40.8 ml/min Estimated GFR () 71.0 Estimated GFR (Non- 61.3 BUN/Creatinine Ratio 22.0 Random Glucose 198 mg/dl Calcium Level 6.7 mg/dl Total Bilirubin 1.0 mg/dl Aspartate Amino Transf (AST/SGOT) 4150 U/L Alanine Aminotransferase (ALT/SGPT) 2032 U/L Alkaline Phosphatase 152 U/L Total Protein 4.8 gm/dl Albumin 2.3 gm/dl Globulin 2.5 gm/dl Albumin/Globulin Ratio 0.9 Blood Gas Sample Site Art Line Bedside Blood Gas pH (LAB) 7.14 Bedside Blood Gas pCO2 (LAB) 52 mmHg Bedside Blood Gas pO2 (LAB) 214 mmHg Bedside Blood Gas HCO3 (LAB) 18 meq/L Bedside Blood Gas Total CO2 19 mEq/l Bedside Blood Gas Base Excess (LAB) -11.0 meq/L Bedside Blood Gas O2 Saturation 99.0 % Talon Test NA Oxygen Delivery Device Ventilator Bedside Oxygen Rate (breaths/min) 20 Blood Gas Minute Ventilation 9.2 Bedside FiO2 60 % Blood Gas PEEP 8 Test 05/17/17 11:21 05/17/17 15:01 Bedside Glucose (other) 196 mg/dl Sodium Level 138 mmol/L Potassium Level 5.2 mmol/L Chloride Level 104 mmol/L Carbon Dioxide Level 18 mmol/L Anion Gap 16.0 mmol/L Blood Urea Nitrogen 22 mg/dl Creatinine 1.38 mg/dl Est Creatinine Clear Calc Drug Dose 26.9 ml/min Estimated GFR () 42.9 Estimated GFR (Non- 37.0 BUN/Creatinine Ratio 16.2 Random Glucose 267 mg/dl Calcium Level 6.6 mg/dl Magnesium Level 1.9 mg/dl Albumin 2.3 gm/dl (Daksha Pino, PA-C) Assessment and Plan 77 yo female with history of COPD/asthma and chronic hypoxia, presents with signs of sepsis due to right sided pneumonia Septic Shock and Multi-Organ System Failure 2/2 Pneumonia - Currently on mechanical ventilation in ICU with pressor support - Zithromax 500 mg IV daily, Primaxin 300 mg IV Q6H, and Vanc - Methylprednisolone TID - LFTS and Cr continue to trend upward - Pending outcome - will need follow-up imaging to further evaluate lung [place] for possible malignancy and resolution of PNA Shock Liver 2/2 Acute Cardiomyopathy vs Hypotension vs Tylenol?: - Mucomyst given recent Tylenol use - Trending LFTs - with AST/ALT 9000/4000 currently trending up Acute Cardiomyopathy: Unknown Etiology - Ischemic vs Acute Illness vs Myocarditis - Echo - significantly reduced EF - Dobutamine infusion - Cardiology following - appreciate recommendations - no invasive intervention necessary at this time NSTEMI: - ASA 81 mg daily Acute on Chronic Respiratory Failure 2/2 Sepsis and H/O COPD: - Mechanical ventilation currently Anxiety: - Lexapro 5 mg daily started this admission DVT Prophylaxis: Heparin 5000 units SC BID Disposition: - Palliative care following - awaiting clinical response to then discuss plan going forward Continued [facility] stay due to: multiple IV medications needed Discharge planning: uncertain (Daksha Pino, PAAnneC) i personally examined pt and verified all morales points w A Alvarez PAC sedated on vent son chilo present, extensive discussion in regards to dx's and plans as well as prognosis - i previously d/w dr miller and agree w giving trial of treatment first before withdrawal of care given the very real possibility she can survive this vitals noted sedated breathing easy on vent no pallor recurrent (aspiration vs HAP) pneumonia w septic shock and shock liver -abx, supportive care, vent support, time -for now will continue care and reassess in 24hr increments (Naseem Arredondo D.O.)
[2017-05-17] MEDS ORDERED: SODIUM CHLORIDE 0.45% IV ONE (17:00)
[2017-05-17] MEDS ORDERED: FENTANYL CITRATE INJ 50 MCG/1 ML 2 ML VIAL IV ONE ×2 (17:30→18:00)
[2017-05-17] MEDS ORDERED: FENTANYL 1250MCG/250ML NSS 250 ML IV PRN (17:30)
[2017-05-17] MEDS: ADENOSINE IV SOLN 3 MG/ML 2 ML VIAL ONE ×2 (17:35→17:42)
[2017-05-17] MEDS ORDERED: FENTANYL CITRATE 1250MCG/250ML NSS ONE (17:41)
[2017-05-17] MEDS ORDERED: SODIUM CHLORIDE IV ONE (17:41)
[2017-05-17] MEDS ORDERED: FENTANYL IV ONE (17:41)
[2017-05-17] MEDS ORDERED: IMIPENEM/CILASTATIN CONSULT ACTIVE PRN (17:45)
[2017-05-17] MEDS ORDERED: NURSING VERBAL MED ORDER STA (17:50)
[2017-05-17] MEDS ORDERED: ADENOSINE IV SOLN 3 MG/ML 2 ML VIAL IV ONE (18:00)
[2017-05-17] MEDS ORDERED: DIGOXIN IV 250 MCG in SYRINGE 9 ML IV ONE (18:00)
[2017-05-17 18:24] LABS: ISTAT ARTERIAL BLOOD GAS HCO3 19 meq/L (19-24); ISTAT ARTERIAL BLOOD GAS PCO2 55 mmHg (35-46); ISTAT ARTERIAL BLOOD GAS PO2 379 mmHg (80-95); ISTAT ARTERIAL BLOOD GAS pH 7.15 (7.35-7.45); ISTAT CARBON DIOXIDE 21 mEq/l (24-31); ISTAT HEMATOCRIT 26 % (37-47); ISTAT HEMOGLOBIN 8.8 g/dl (12.0-16.0); ISTAT SODIUM 135 mEq/L (135-144)
[2017-05-17] MEDS ORDERED: MoRPHine SULFATE 4 MG/ML 1 ML CARP\\VIAL IV STA (18:41)
[2017-05-17] MEDS ORDERED: MoRPHine SULFATE 4 MG/ML 1 ML CARP\\VIAL ONE (18:42)
[2017-05-17] MEDS ORDERED: MoRPHine SULFATE 4 MG/ML 1 ML CARP\\VIAL IV PRN ×2 (18:45→19:00)
[2017-05-17] MEDS ORDERED: FENTANYL CITRATE INJ 50 MCG/1 ML 2 ML VIAL IV STA (18:51)
[2017-05-17] MEDS ORDERED: LORAZEPAM 2 MG/ML 1 ML VIAL IV PRN (19:00)
[2017-05-17 19:11] LABS: BUN/CREATININE RATIO 15.1 (10-20); CALCIUM 6.1 mg/dl (8.5-10.1); CREATININE 1.56 mg/dl (0.60-1.20); POTASSIUM 4.8 mmol/L (3.5-5.1)
[2017-05-17] MEDS ORDERED: MORPHINE SULF/NSS 250MG/250ML IV PRN (19:15)
--- NOTE | 2017-05-17 19:19 | Critical Care Progress Note ---
Critical Care Progress Note Date of Service May 17, 2017. Attending Dr. Richard Subjective No review of systems can be obtained. Objective Marginal improvement in hemodynamics, her CVP was 12, urine output remains nil. No abdominal distention and lactic acid as well as troponin are stable. As mentioned above review of systems is not obtainable. Current SOFA Score SOFA Score Response (Comments) Value PaO2/FiO2 (mmHg) < 100 4 SaO2 / FIO2 67 - 141 3 Platelets (x10) > 150 0 Bilirubin (mg/dL) < 1.2 0 Almaz Coma Score 6 - 9 3 Level of Hypotension Dopamine > 5 mcq or Epi < 0.1 mcq 3 Creatinine (mg/dL) < 1.2 0 Total 13 Assessment & Plan Pulse called to the bedside to evaluate the patient with tachycardia with a heart rate of 170. The patient appeared to be in rapid rhythm with narrow complex. The patient received 12 mg of adenosine and converted briefly to a normal sinus rhythm with a rate of 90 returning back again to a heart rate of 170. It was refractory after report and the patient started losing her blood pressure. The patient went into a flutter at that time. Due to the hypotension patient was given 1 dose of digoxin 0.25 mg IV without any effect. Dobutamine was stopped several of the cause of her tachycardia and the blood pressure continued to be on the low side. Vasopressin was placed back again and the Levothroid was increased. The patient physical exam at that point was changed significantly in which the patient become totally unresponsive and doesn't even have a cough reflex with irritation from the in-line suction catheter. Heart rate was 170 irregularly irregular unresponsive to carotid massage either central line catheter was only at 15 cm by the skin as it was before. It has not migrated. Lungs with bilateral lower rhonchi abdomen is benign no edema. No urine output also. I have performed a bedside echo on this patient which showed hyperdynamic heart with akinetic apex again. An ABG was drawn which showed pH of 7.15 and PCO2 of 55 with PO2 over 300. Bicarbonate was going down to 17. Electrolytes were normal and lactic acid as well as liver enzymes and troponin were drawn. Due to the persistent hypotension it was felt that the patient would benefit from cardioversion. The parents were placed and the patient received 50 mics of fentanyl 2 doses prior to attempting cardioversion. The patient initially was cardioverted with 100 J of biphasic direct current, followed by 2 doses of 200 J each 2 with supper. After the third shock patient gained back again normal sinus rhythm and blood pressure improved. Dopamine was started and incidental dobutamine and vasopressin continued as well as Levothroid. She was maintained in that rhythm. The patient continued to develop profound metabolic acidosis I was injected with 2 A of bicarbonate. Her corrected pH to the PCO2 was around 7.20. Mucomyst infusion was stopped, a dose of albumin as a buffer was used with marginal improvement. The patient continued to be comatose. Dr. Arredondo, who is attending of record, was contacted and presented promptly at the bedside. Appreciate his input and he contacted the family and notify them about the grim situation and her mother is in. The 2 sons and the as well as a cystoscopy or upright at the bedside. The situation was explained to them in details. They agreed given her grim prognosis to the fourth and extubate her terminally and stop all the current resuscitative efforts. The process was explained to them, morphine will be used in addition to Ativan for comfort, all the tubes and lines would be removed of the drips will be stopped and the monitor will be turned off in the room. They elected to stay with her at the bedside. The patient passed the first hour on morphine injections to be started on morphine drip. All are in agreement with the plan based on her wishes as well as the family wishes. The patient diagnosis is septic shock with multiorgan system failure. Including shock liver with elevated transaminases in the range of 9000. Acute renal failure with no urine output and severe metabolic acidosis. Cardiomyopathy with acute heart failure thought to be related to stress cardiomyopathy. Non-ST elevation MD felt to be type II. Severe pneumonia and COPD exacerbation with acute lung injury picture. After the patient received 4 mg of IV morphine, 10 minutes later all the drips were stopped, the OG tube and ET tube was removed successfully, the patient was comfortable and not have any signs of discomfort or agitation, she was placed on aerosol oxygen, family were at the bedside, instructions were given to administer morphine every 30 minutes and if passes a first hour to place on a morphine drip. The patient is terminal. The cause of the demise was septic shock with multiorgan system failure. Case discussed in details on multiple occasions with the staff and with the family. Appreciate all the staff involved in this case especially the hard work with the nursing staff and the prompt assistance from Dr. Arredondo. Critical care time in addition to the above spent with this patient was 60 minutes. Consults & Procedures Consultants: Cardiology. Procedures: Central line, a line, but side echo. Data Medications: Current Inpatient Medications Medications (Trade) Dose Ordered Sig/Giovanni Route Start Time Stop Time Status Last Admin Dose Admin Acetylcysteine 4900 mg/Sodium Chloride 1,024.5 ml @ 62.5 mls/ hr TODAY@1700 ONCE IV 05/17/17 17:00 05/18/17 09:23 05/17/17 17:00 62.5 MLS/HR Morphine Sulfate (MoRPHine SULFATE INJ) 4 mg Q30M PRN IV 05/17/17 19:00 05/31/17 18:59 I & O: 24-Hour Column 05/18/17 07:59 Intake Total 3149 ml Output Total 100 ml Balance 3049 ml Vital Signs: Date Time Temp Pulse Resp B/P (MAP) Pulse Ox O2 Delivery O2 Flow Rate FiO2 05/17/17 18:22 135 05/17/17 18:08 50 05/17/17 17:24 50 05/17/17 16:00 97 Mechanical Ventilator 50 05/17/17 16:00 38.6 119 29 108/57 (64) 98 122/45 05/17/17 16:00 116 26 92/58 (69) 99 Mechanical Ventilator 50 05/17/17 16:00 50 05/17/17 15:00 38.6 119 29 108/57 (64) 98 122/45 05/17/17 14:36 38.6 119 29 108/57 (64) 98 122/45 05/17/17 14:31 38.6 126 30 105/63 (75) 89 130/56 05/17/17 14:30 50 05/17/17 14:26 38.5 118 30 98/63 (76) 97 130/57 05/17/17 14:21 38.5 117 29 109/67 (75) 95 128/57 05/17/17 14:16 38.2 117 30 105/62 (75) 98 127/57 05/17/17 14:15 38.1 113 29 (75) 96 126/57 05/17/17 14:11 37.9 112 30 107/60 (75) 99 128/55 05/17/17 14:06 37.9 113 30 101/60 (74) 98 126/56 05/17/17 14:01 37.9 112 27 103/65 (74) 93 126/55 05/17/17 14:00 39.0 119 26 130/57 (81) 97 Mechanical Ventilator 50 05/17/17 13:56 38.0 117 29 99/63 (73) 100 125/55 05/17/17 13:51 37.9 114 30 112/62 (73) 96 125/55 05/17/17 13:46 37.8 108 28 94/66 (72) 100 124/54 05/17/17 13:45 37.8 115 28 (71) 99 123/54 05/17/17 13:41 37.8 109 22 99/62 (71) 96 123/53 05/17/17 13:36 37.7 116 30 105/55 (72) 98 123/54 05/17/17 13:31 37.7 118 29 102/63 (71) 96 122/53 05/17/17 13:26 37.6 119 29 99/62 (71) 98 120/54 05/17/17 13:21 37.5 122 21 94/61 (70) 98 117/52 05/17/17 13:16 37.3 131 30 99/60 (70) 98 118/52 05/17/17 13:15 37.2 122 30 (69) 99 118/51 05/17/17 13:11 35.0 124 29 94/57 (66) 99 114/48 05/17/17 13:06 36.3 122 29 92/55 (66) 96 113/48 05/17/17 13:01 36.6 124 27 95/52 (64) 95 112/47 05/17/17 13:00 36.6 125 25 (65) 98 113/48 05/17/17 12:56 37.4 121 27 90/51 (62) 98 107/46 05/17/17 12:51 37.4 121 27 79/55 (58) 99 102/42 05/17/17 12:46 37.1 121 26 85/43 (54) 99 98/40 05/17/17 12:41 37.0 121 27 77/46 (54) 99 100/39 05/17/17 12:36 37.3 121 27 73/51 (53) 99 100/38 05/17/17 12:31 37.2 119 28 73/43 (55) 99 102/40 05/17/17 12:30 37.2 120 26 (56) 99 104/40 05/17/17 12:21 37.1 114 21 81/50 (65) 98 112/47 05/17/17 12:16 37.1 116 28 89/57 (71) 98 120/54 05/17/17 12:11 37.0 116 27 103/62 (71) 98 123/54 05/17/17 12:06 37.0 112 27 96/57 (74) 99 124/56 05/17/17 12:01 36.9 110 27 98/61 (74) 96 123/56 05/17/17 12:00 50 05/17/17 12:00 37.0 124 26 94/61 (72) 95 Mechanical Ventilator 50 05/17/17 12:00 36.9 109 28 (74) 100 123/57 05/17/17 12:00 95 Mechanical Ventilator 60 05/17/17 11:56 36.9 108 27 96/58 (74) 98 122/57 05/17/17 11:51 36.6 109 27 97/60 (73) 100 119/57 05/17/17 11:46 36.6 109 28 105/53 (73) 98 119/57 05/17/17 11:41 36.8 108 27 100/62 (70) 99 116/54 05/17/17 11:36 36.8 106 27 90/59 (69) 98 113/52 05/17/17 11:32 50 05/17/17 11:31 36.7 107 27 106/65 (74) 99 120/57 05/17/17 11:30 36.7 106 27 (74) 98 120/57 05/17/17 11:26 36.7 106 26 98/59 (72) 97 118/56 05/17/17 11:21 36.6 106 26 101/65 (72) 98 116/56 05/17/17 11:16 36.6 106 27 103/61 (79) 99 119/57 05/17/17 11:11 36.5 106 26 /59 (72) 97 117/55 05/17/17 11:06 36.5 107 28 106/64 (72) 98 117/55 05/17/17 11:01 36.4 108 29 103/64 (72) 99 118/56 05/17/17 11:00 36.3 103 27 /61 (72) 100 115/56 05/17/17 11:00 36.4 106 26 (72) 98 117/55 05/17/17 10:41 36.3 103 27 /61 (72) 100 115/56 05/17/17 10:36 36.2 106 27 91/64 (70) 100 112/55 05/17/17 10:31 36.2 104 27 94/58 (71) 99 111/55 05/17/17 10:30 36.2 101 26 (71) 100 109/56 05/17/17 10:26 36.2 102 28 106/65 (71) 100 113/55 05/17/17 10:21 36.1 105 26 99/60 (70) 100 113/55 05/17/17 10:16 36.1 103 26 95/68 (71) 87 114/55 05/17/17 10:15 36.1 104 27 (71) 87 114/55 05/17/17 10:11 36.0 106 27 90/73 (72) 94 113/56 05/17/17 10:06 36.0 106 28 /61 (72) 100 115/57 05/17/17 10:01 35.9 107 26 94/69 (70) 83 111/55 05/17/17 10:00 35.9 106 26 (70) 74 110/54 05/17/17 09:26 35.6 100 27 /61 (62) 94/49 05/17/17 09:22 35.6 102 26 30/26 (59) 77 89/47 05/17/17 09:20 50 05/17/17 09:16 33.3 106 21 /51 (65) 82 72/46 05/17/17 09:11 35.6 104 22 /53 (66) 75 87/45 05/17/17 09:10 60 05/17/17 09:01 35.5 103 20 /50 (57) 71 86/45 05/17/17 09:00 35.6 103 21 (57) 61 87/45 12/14/17 08:56 35.5 98 18 78/55 (55) 96 84/44 05/17/17 08:51 35.5 97 23 /52 (61) 82/43 05/17/17 08:46 35.5 95 21 77/57 (66) 97 82/44 05/17/17 08:41 35.5 96 24 /52 (54) 80/43 05/17/17 08:37 35.4 97 22 54/17 (53) 91 79/42 05/17/17 08:31 35.4 94 25 /51 (47) 92 69/37 05/17/17 08:30 35.4 95 22 (47) 81 70/37 05/17/17 08:26 35.4 94 22 65/51 (55) 100 05/17/17 08:25 35.4 95 23 /50 (56) 96 05/17/17 08:16 35.3 93 23 22/ (19) 95 70/38 05/17/17 08:11 35.3 91 22 /50 (48) 93 72/38 05/17/17 08:06 35.3 92 22 /50 (55) 88 71/37 05/17/17 08:01 35.3 92 22 /17 (18) 90 73/39 05/17/17 08:00 Mechanical Ventilator 60 05/17/17 08:00 35.3 94 23 (50) 89 74/39 05/17/17 07:00 35.1 92 22 100 05/17/17 06:12 60 05/17/17 04:09 60 05/17/17 02:41 100 24 97/47 (64) 94 4.0 70/47 (55) 05/17/17 02:30 35.1 05/16/17 23:59 Nasal Cannula 3.0 05/16/17 23:37 35.3 104 24 121/70 (87) 96 Nasal Cannula 3.0 05/16/17 20:00 Nasal Cannula 3.0 05/16/17 19:36 36.4 125 26 108/74 (85) 96 Nasal Cannula 3.0 05/16/17 19:21 118 18 94 Nasal Cannula 3.0 Laboratory Results: Last 24 Hours Test 05/17/17 00:33 05/17/17 01:08 05/17/17 02:30 05/17/17 03:38 White Blood Count 17.28 K/uL Red Blood Count 4.12 M/uL Hemoglobin 10.9 g/dL Hematocrit 34.8 % Mean Corpuscular Volume 84.5 fL Mean Corpuscular Hemoglobin 26.5 pg Mean Corpuscular Hemoglobin Concent 31.3 g/dl Platelet Count 424 K/uL Mean Platelet Volume 9.3 fL Neutrophils (%) (Auto) 87.0 % Lymphocytes (%) (Auto) 1.9 % Monocytes (%) (Auto) 10.2 % Eosinophils (%) (Auto) 0.0 % Basophils (%) (Auto) 0.1 % Neutrophils # (Auto) 15.04 K/uL Lymphocytes # (Auto) 0.33 K/uL Monocytes # (Auto) 1.76 K/uL Eosinophils # (Auto) 0.00 K/uL Basophils # (Auto) 0.01 K/uL RDW Standard Deviation 48.7 fL RDW Coefficient of Variation 15.7 % Immature Granulocyte % (Auto) 0.8 % Immature Granulocyte # (Auto) 0.14 K/uL Nucleated RBC Absolute Count (auto) 0.02 K/uL Nucleated Red Blood Cells % 0.1 % Prothrombin Time 16.7 SECONDS Prothromb Time International Ratio 1.6 Activated Partial Thromboplast Time 33.0 SECONDS Partial Thromboplastin Ratio 1.3 Sodium Level 137 mmol/L Potassium Level 5.0 mmol/L Chloride Level 109 mmol/L Carbon Dioxide Level 21 mmol/L Anion Gap 7.0 mmol/L Blood Urea Nitrogen 18 mg/dl Creatinine 0.72 mg/dl Est Creatinine Clear Calc Drug Dose 51.6 ml/min Estimated GFR () 94.3 Estimated GFR (Non- 81.3 BUN/Creatinine Ratio 24.5 Random Glucose 169 mg/dl Calcium Level 7.6 mg/dl Total Bilirubin 0.6 mg/dl Aspartate Amino Transf (AST/SGOT) 1658 U/L Alanine Aminotransferase (ALT/SGPT) 1079 U/L Alkaline Phosphatase 116 U/L Total Protein 6.0 gm/dl Albumin 2.2 gm/dl Globulin 3.8 gm/dl Albumin/Globulin Ratio 0.6 Lactic Acid Level 4.0 mmol/L Procalcitonin 0.88 ng/ml Fibrinogen 424 mg/dl Fibrin Degradation Products <10 mcg/ml Ammonia 65.0 umol/L Bedside Hemoglobin 9.2 g/dl Bedside Hematocrit 27 % Bedside Blood Gas pH (LAB) 7.03 Bedside Blood Gas pCO2 (LAB) 69 mmHg Bedside Blood Gas pO2 (LAB) 47 mmHg Bedside Blood Gas HCO3 (LAB) 18 meq/L Bedside Blood Gas Total CO2 20 mEq/l Bedside Blood Gas Base Excess (LAB) -12.0 meq/L Bedside Blood Gas O2 Saturation 62.0 % Bedside Sodium 138 mEq/L Bedside Potassium 5.0 mEq/L Test 05/17/17 04:41 05/17/17 06:22 05/17/17 07:52 05/17/17 09:18 White Blood Count 20.26 K/uL Red Blood Count 3.47 M/uL Hemoglobin 9.0 g/dL Hematocrit 30.0 % Mean Corpuscular Volume 86.5 fL Mean Corpuscular Hemoglobin 25.9 pg Mean Corpuscular Hemoglobin Concent 30.0 g/dl RDW Standard Deviation 51.2 fL RDW Coefficient of Variation 16.1 % Platelet Count 283 K/uL Mean Platelet Volume 9.7 fL Prothrombin Time 21.2 SECONDS Prothromb Time International Ratio 2.0 Phosphorus Level 6.0 mg/dl Magnesium Level 2.0 mg/dl Total Creatine Kinase 92 U/L Creatine Kinase MB 7.8 ng/ml Creatine Kinase MB Ratio 8.5 Troponin I 2.150 ng/ml Acetaminophen Level 6 ug/ml Hepatitis B Surface Antigen NEG Hepatitis C Antibody NEG Bedside Glucose 162 mg/dl Sodium Level 139 mmol/L Potassium Level 5.2 mmol/L Chloride Level 110 mmol/L Carbon Dioxide Level 19 mmol/L Anion Gap 11.0 mmol/L Blood Urea Nitrogen 20 mg/dl Creatinine 0.91 mg/dl Est Creatinine Clear Calc Drug Dose 40.8 ml/min Estimated GFR () 71.0 Estimated GFR (Non- 61.3 BUN/Creatinine Ratio 22.0 Random Glucose 198 mg/dl Calcium Level 6.7 mg/dl Total Bilirubin 1.0 mg/dl Aspartate Amino Transf (AST/SGOT) 4150 U/L Alanine Aminotransferase (ALT/SGPT) 2032 U/L Alkaline Phosphatase 152 U/L Total Protein 4.8 gm/dl Albumin 2.3 gm/dl Globulin 2.5 gm/dl Albumin/Globulin Ratio 0.9 Blood Gas Sample Site Art Line Bedside Blood Gas pH (LAB) 7.14 Bedside Blood Gas pCO2 (LAB) 52 mmHg Bedside Blood Gas pO2 (LAB) 214 mmHg Bedside Blood Gas HCO3 (LAB) 18 meq/L Bedside Blood Gas Total CO2 19 mEq/l Bedside Blood Gas Base Excess (LAB) -11.0 meq/L Bedside Blood Gas O2 Saturation 99.0 % Talon Test NA Oxygen Delivery Device Ventilator Bedside Oxygen Rate (breaths/min) 20 Blood Gas Minute Ventilation 9.2 Bedside FiO2 60 % Blood Gas PEEP 8 Test 05/17/17 11:21 05/17/17 15:01 05/17/17 18:05 05/17/17 18:29 Bedside Glucose (other) 196 mg/dl Sodium Level 138 mmol/L Potassium Level 5.2 mmol/L Chloride Level 104 mmol/L Carbon Dioxide Level 18 mmol/L Anion Gap 16.0 mmol/L Blood Urea Nitrogen 22 mg/dl Creatinine 1.38 mg/dl Est Creatinine Clear Calc Drug Dose 26.9 ml/min Estimated GFR () 42.9 Estimated GFR (Non- 37.0 BUN/Creatinine Ratio 16.2 Random Glucose 267 mg/dl Calcium Level 6.6 mg/dl Phosphorus Level 5.5 mg/dl Magnesium Level 1.9 mg/dl Total Bilirubin 1.0 mg/dl Aspartate Amino Transf (AST/SGOT) 9280 U/L Alanine Aminotransferase (ALT/SGPT) 4236 U/L Alkaline Phosphatase 154 U/L Total Protein 4.9 gm/dl Albumin 2.3 gm/dl Globulin 2.6 gm/dl Albumin/Globulin Ratio 0.9 Thyroid Stimulating Hormone (TSH) 1.410 uIu/ml Bedside Hemoglobin 8.8 g/dl Bedside Hematocrit 26 % Bedside Blood Gas pH (LAB) 7.15 Bedside Blood Gas pCO2 (LAB) 55 mmHg Bedside Blood Gas pO2 (LAB) 379 mmHg Bedside Blood Gas HCO3 (LAB) 19 meq/L Bedside Blood Gas Total CO2 21 mEq/l Bedside Blood Gas Base Excess (LAB) -9.0 meq/L Bedside Blood Gas O2 Saturation 100.0 % Bedside Sodium 135 mEq/L Bedside Potassium 5.0 mEq/L Test 05/17/17 18:31
[2017-05-17 19:31] LABS: INR 2.8 (0.9-1.1); PROTHROMBIN TIME (PATIENT) 29.3 SECONDS (9.0-12.0)
[2017-05-17] MEDS ORDERED: VANCOMYCIN TROUGH ONE (20:00)
[2017-05-17] MEDS ORDERED: ALBUT/IPRATROP 3MG/0.5MG NEB 3 ML VIAL INH SCH (21:00)
[2017-05-17] MEDS ORDERED: SODIUM CHLORIDE 0.9% 10ML FLUSH IV ONE (22:09)
[2017-05-17] MEDS ORDERED: DOPamine 400MG / 250ML D5W IV ONE (22:09)
[2017-05-18] MEDS ORDERED: AZITHROMYCIN IV 500 MG in DEXTROSE 5% 250ML 250 ML IV SCH (04:00)
[2017-05-18] MEDS ORDERED: VANCOMYCIN TROUGH SCH (07:30)
[2017-05-18] MEDS ORDERED: ASPIRIN 81 MG ECTAB PO SCH (09:00)
[2017-05-18] MEDS ORDERED: ASPIRIN 81 MG CHEW PO SCH (09:00)
--- NOTE | 2017-05-22 15:38 | Death Summary ---
Summary of Admission Date May 14, 2017 at 12:38 Date & Time of May 17, 2017. 22:10 Cause of Septic Shock with Multiorgan System Failure from Pneumonia Secondary Diagnoses 1. Chronic Respiratory Failure 2/2 COPD 2. H/O Collapsed R Lung 3. Cerebral Aneurysm 4. Anxiety 5. Intermittent Hemoptysis 6. Eczema Hospital Course ADMISSION: 77 yo female with history of COPD, chronic hypoxia on 2L continuously , presented to the ED today with a one week history of weakness, poor appetite, increased lethargy. Most of the history obtained from son at the bedside who takes care of her at home. He said that she has had a low grade temperature, no fever that he has seen. Sleeping a lot, night sweats. Won't eat or drink much even though he constantly tries to push intake. She admits to some nausea , no vomiting. No real cough or dyspnea. Son has put a pulse oximeter on when walking and saturations drop to 83% on the 2L. In the ED she was tachycardic, WBC 16k, blood pressure preserved. Feels jittery after Duoneb treatment. HOSPITAL COURSE: Ms. Collins was admitted for a R-Sided CAP which she initially responded to Levaquin. Initially she did not require more supplemental O2 from her baseline. Her biggest complaint was generalized weakness and anxiousness. On 05/17 patient was complaining of worsening weakness and feeling SOB. She did feel that she was anxious but her cough seemed to become more productive. Assessment at bedside revealed tachycardia up to 140s and tachypnea and an appropriate blood pressure. She improved with sitting more up but was weak to cough adequately. Stat EKG revealed sinus tachycardia without ischemic findings. CXR with progressing R-sided consolidations. Question possible aspiration vs hospital-acquired infection leading to worsening. She was transferred to telemetry for further monitoring. She stabilized but eventually became hypotensive and was transferred to the ICU and was intubated and started on pressor support. Laboratories revealed shock liver and progressively more organs began to fail. Palliative care was consulted and plan to follow clinical status initially before the decision to place comfort measures. Throughout the day, she progressed to a narrow complex tachycardia with initial conversion to NSR with Adenosine but ultimately progressed to atrial flutter. This rhythm unfortunately resulted in further hypotension and cardioversion was attempted. She converted to NSR after 3 shocks and was producing an adequate pressure. Due to guarded prognosis the family was called and further discussion led to withholding further life- support measures. She was terminally extubated and morphine initiated for comfort. Due to septic shock she ultimately developed an acute cardiomyopathy with significantly reduced EF and resultant NSTEMI. Unfortunately patient ceased to breath at 2210 on 05/17/17. Copy To Oscar Lanza M.D.
== END 2017-05-17 22:10 | disposition expired | DRG 871 ==
LOC: EDBD 09:29 → C.EDB 09:31 → C.2T 12:38 → ENRESERV 13:04 → C.MS4W 05-15 15:40 → ENRESERV 05-16 17:20 → EDBEDREQ 05-16 17:25 → C.2T 05-16 18:49 → C.MSICU 05-17 03:10
PROVIDERS: ADMIT Internal Medicine; ATTEND Internal Medicine
PROC: 5A19054 Respiratory Ventilation, Single, Nonmechanical (ICD-10-PCS; principal; 2017-05-17)
PROC: 0BH17EZ Insertion of Endotracheal Airway into Trachea, Via Natural or Artificial Opening (ICD-10-PCS; principal; 2017-05-17)
PROC: 03JY3ZZ Inspection of Upper Artery, Percutaneous Approach (ICD-10-PCS; 2017-05-17)
PROC: 5A2204Z Restoration of Cardiac Rhythm, Single (ICD-10-PCS; 2017-05-17)
PROC: 02HV33Z Insertion of Infusion Device into Superior Vena Cava, Percutaneous Approach (ICD-10-PCS; 2017-05-17)
DX: A41.9 Sepsis, unspecified organism (principal); J18.9 Pneumonia, unspecified organism; E87.1 Hypo-osmolality and hyponatremia; Z51.5 Encounter for palliative care; I42.9 Cardiomyopathy, unspecified; J96.20 Acute and chronic respiratory failure, unspecified whether with hypoxia or hypercapnia; B17.9 Acute viral hepatitis, unspecified; R65.21 Severe sepsis with septic shock; K72.00 Acute and subacute hepatic failure without coma; J44.1 Chronic obstructive pulmonary disease with (acute) exacerbation; I48.92 Unspecified atrial flutter; R04.2 Hemoptysis; E87.2 Acidosis; I21.4 Non-ST elevation (NSTEMI) myocardial infarction; Z88.0 Allergy status to penicillin; E86.0 Dehydration; F41.9 Anxiety disorder, unspecified; M41.9 Scoliosis, unspecified; Z99.81 Dependence on supplemental oxygen; J98.4 Other disorders of lung; Z87.891 Personal history of nicotine dependence; L30.9 Dermatitis, unspecified